=== PATIENT | female | born 1945 | race Caucasian/White ===

== ENCOUNTER 2024-12-05 19:09 | Inpatient (IN) | payer OTHER ==
[2024-12-05 20:19] LABS: Absolute Basophils 0.1 K/uL (0-0.5); Absolute Eosinophils 0.2 K/uL (0-0.5); Absolute Lymphocytes (CBC) 0.7 K/uL (0.7-4.9); Absolute Monocytes 1.3 K/uL (0.1-1.3); Absolute Neutrophil 9.4 K/uL (1.8-8.0); Basophils % 0.7 % (0-1.3); Eosinophils % 1.6 % (0-4.4); Hematocrit 29.2 % (36.0-45.0); Hemoglobin 9.5 g/dL (12.0-15.0); Lymphocytes % 5.8 % (15.3-44.8); MCH 26.8 pg (27.0-35.0); MCHC 32.4 g/dL (32.0-36.0); MCV 82.9 fL (80-100); Neutrophils % 80.9 % (41.7-73.7); Platelets 494 thou/uL (152-406); RBC Red Blood Cell Count 3.53 M/uL (3.86-4.86); Red Cell Distribution Width 16.5 % (12.1-15.2)
[2024-12-05] MEDS ORDERED: VANCOMYCIN 1 GM/VIAL ONE ×2 (20:30→23:56)
[2024-12-05] MEDS ORDERED: PIPERACIL/TAZO 3.375 GM VIAL IV ONE (20:30)
[2024-12-05] MEDS ORDERED: NA CHLORIDE 0.9% 250 ML ONE ×2 (20:30→23:56)
[2024-12-05] MEDS ORDERED: NA CHLORIDE 0.9% 100 ML ONE (20:30)
[2024-12-05 20:32] LABS: Anion Gap 11.4 mEq/L (5.0-15.0); PTT, Activated Partial Thromb 41.1 SECONDS (27.2-37.4); Potassium 4.4 mEq/L (3.5-5.1); Protime INR 2.28
[2024-12-05] MEDS ORDERED: TRAMADOL HCL 50 MG TAB ONE (22:18)
--- NOTE | 2024-12-05 22:45 | RAD REPORT ---
EXAM: CT Shoulder Left W Con HISTORY: shoulder infection COMPARISON: None TECHNIQUE: Multiple contiguous axial images were obtained in a CT of the left shoulder following IV c ontrast administration. Sagittal and coronal reformats were performed. One or more of the following dose reduction techniques were used: Automated exposure control, adjustment of the mA and kV accordin g to patient size, and iterative reconstruction. Unless otherwise specified, incidental findings do not require dedicated imaging follow-up. FINDINGS: Ill-defined collection of fluid with gas locules present along the anterior aspect of the deltoid mus pola, extending along the lateral upper arm compartment muscles, measuring 5.1 x 3.7 x 8.2 cm in greatest transverse, AP, and CC dimensions. Bilobed crescentic collections in the subacromial space, with marginal thin wall enhancement extendin g deep to and posterior to the distal clavicle, and along the fascial plane between the deltoid and infraspinatus. The former component measures 5.3 x 2.0 cm in greatest craniocaudal extent. The subdel toid component measures 5.7 x 1.8 cm. This is favored to represent distention of the subacromial/subdeltoid bursa, rather than a joint effusion. Distention with mild marginal enhancement of the long head of biceps tendon sheath, measuring 1.6 x 1 .2 cm in greatest axial dimension. Advanced glenohumeral joint degenerative changes with joint space narrowing anteriorly. Advanced AC j oint degenerative changes with marginal spurring. Fluid collection measuring 2.9 x 1.8 cm with adjacent fat stranding and internal gas locules emanates from the joint space, extending cranially an d anteriorly. Atrophic changes with fatty replacement of the supraspinatus and infraspinatus. The long head of nehemias ps tendons are not well evaluated, although there appears to be some swelling and soft tissue thickening along the distal subscapularis tendon. The visualized supraclavicular soft tissues are unremarkable. Included left lung and mediastinal stru ctures are unremarkable. No focal suspicious osseous lesion or periosteal reaction. Left chest wall pacer in place. IMPRESSION: Ill-defined collection of fluid and gas within the anterior aspect of the deltoid muscle and extendin g along the lateral upper arm muscles up to 8.2 cm, could represent an abscess. Bilobed crescentic collections in the subacromial and subdeltoid space, with marginal wall enhancemen t, concerning for bursitis, for which superimposed infection cannot be excluded. Distention of the long head of biceps tendon sheath and nonspecific soft tissue thickening near the subscapularis inser tion, could relate to the same etiology. Moderate degenerative changes, with fluid collection extending cranially from the AC joint, with surr ounding fat stranding and few locules of gas. Underlying septic arthritis cannot be excluded as well. Other incidental findings as above.
[2024-12-05] MEDS: Levofloxacin500mg IV 500 MG/100 ML BAG IV ONE (23:00)
[2024-12-05] MEDS: VANCOMYCIN 1.75 GM in NA CHLORIDE 0.9% 500 ML IVPB SCH (23:00)
--- NOTE | 2024-12-05 23:12 | EDPHYS ---
Physician Documentation [facility] Name: Arabella Chou Age: 79 yrs Sex: Female : 1945 Arrival Date: 12/05/2024 Time: 19:09 Bed 15 Private MD: ED Physician Jose Rai HPI: 12/05 19:57 This 79 yrs old Female presents to ER via Wheelchair with complaints of ec2 Abnormal Lab Results - xray/ultrasound. 19:57 Patient arrives today d/t concern for L shoulder redness. was seen outpatient, had ec2 negative dvt us, soft tissue ultrasound with a recommended CT imaging for further evaluation. Patient is been having erythema to the left shoulder, was diagnosed with cellulitis, started on Keflex and subsequently doxycycline with minimal improvement in symptoms. Patient has been on antibiotic for approximately 5 days.. Historical: - Allergies: 19:27 No Known Allergies; me1 - PMHx: 19:27 Congestive heart failure; Hypertensive disorder; Deep vein thrombosis; me1 - PSHx: 19:27 pacemaker; me1 - Immunization history:: Adult Immunizations up to date. - Infectious Disease History:: Denies. - Social history:: Smoking status: Patient/guardian denies using tobacco, but has a distant history of tobacco abuse. ROS: 20:04 Constitutional: as per hpi ec2 Exam: 20:04 Constitutional: GEN: NAD Head: atraumatic Eyes: EOMI Ears: External ears are ec2 normal. CV: regular rate LUNGS: no respiratory distress ABD: non-distended SKIN: Erythema to the left shoulder, trace edema from the shoulder down, intact distal neurovascular status MSK: no evidence of trauma Vital Signs: 19:20 BP 138 / 54; Pulse 86; Resp 17; Temp 98.2; Pulse Ox 98% ; Weight 103.42 kg; Height 5 me1 ft. 6 in. ; Pain 7/10; 20:00 BP 132 / 50; Pulse 65; Resp 18; Temp 98.1; Pulse Ox 97% on R/A; rg5 19:20 Body Mass Index 36.80 (103.42 kg, 167.64 cm) me1 19:20 Pain Scale: Adult me1 MDM: 19:29 Medical Screening Exam initiated ec2 20:05 Data reviewed: vital signs, nurses notes. ED course: Patient arrives today for left ec2 shoulder erythema and ultrasound that was reportedly recommended to have a follow-up CT scan. Examination yields erythema to the left shoulder. Will obtain lab work, CT scan, empirically treat with vancomycin and Zosyn and reassess. 23:15 Differential Diagnosis altered mental status, sepsis, flu, Left lower arm cellulitis, sp4 left upper arm cellulitis, left intramuscular abscess. Consideration of Admission/Observation Patient was admitted/placed on observation. Escalation of care including admission/observation considered. ED course: Left deltoid intramuscular abscess based on the CT findings. There is also elevated INR. Patient was discussed with Dr. Parra with general surgery and he has requested admission with n.p.o. for incision and drainage prep in the morning.. Sepsis reevaluation was complete. 30 mL/kg fluid bolus cannot be given secondary to history of congestive heart failure. . 12/05 19:32 Order name: CBC with Diff; Complete Time: 20:34 [facility] 12/05 19:32 Order name: BMP; Complete Time: 20:34 [facility] 12/05 19:53 Order name: Blood Culture Adult (2) [facility] 12/05 19:53 Order name: Lactate w/ 2H reflex if indic.; Complete Time: 21:19 2 12/05 19:53 Order name: Protime (+inr); Complete Time: 20:34 2 12/05 19:53 Order name: Ptt, Activated; Complete Time: 20:34 2 12/05 23:39 Order name: Basic Metabolic Panel [facility] 12/05 23:39 Order name: Basic Metabolic Panel [facility] 12/05 23:39 Order name: CBC with Automated Diff [facility] 12/05 23:39 Order name: CBC with Automated Diff [facility] 12/05 23:39 Order name: Lipid Profile [facility] 12/05 23:39 Order name: Lipid Profile [facility] 12/05 19:58 Order name: Shoulder Left W Con; Complete Time: 23:13 [facility] 12/05 19:53 Order name: EKG; Complete Time: 19:53 [facility] 12/05 23:39 Order name: CONS Physician Consult [facility] 12/05 19:32 Order name: IV; Complete Time: 20:04 2 12/05 19:53 Order name: Accucheck; Complete Time: 20:50 [facility] 12/05 19:53 Order name: Cardiac monitoring; Complete Time: 20:50 12/05 19:53 Order name: EKG - Nurse/Tech; Complete Time: 21:11 12/05 19:53 Order name: IV Saline Lock - Large Bore; Complete Time: 20:10 12/05 19:53 Order name: Labs collected and sent; Complete Time: 20:10 12/05 19:53 Order name: O2 Per Protocol; Complete Time: 20:10 12/05 19:53 Order name: O2 Sat Monitoring; Complete Time: 20:10 12/05 19:53 Order name: Vital Signs; Complete Time: 20:10 12/05 23:06 Order name: NPO; Complete Time: 23:16 sp4 Administered Medications: 20:50 Drug: Piperacillin-Tazobactam IVPB 3.375 grams IVPB once over 60 mins; (mix in NS 100 rg5 mL) Route: IVPB; Infused Over: 60 mins; Site: right hand; 22:11 Follow up: IV Status: Completed infusion; IV Intake: 100ml rg5 22:11 Drug: vancoMYCIN IVPB 1 grams IVPB once over 2 hrs Route: IVPB; Infused Over: 2 hrs; rg5 Site: right wrist; 23:22 Follow up: IV Status: Completed infusion; IV Intake: 200ml rg5 12/06 01:15 Follow up: IV Status: Completed infusion; IV Intake: 250ml rg5 12/05 22:15 Drug: traMADol PO 100 mg PO once Route: PO; rg5 23:22 Follow up: Response: No adverse reaction; Pain is decreased rg5 12/06 00:07 Drug: vancoMYCIN IVPB 1 grams IVPB once over 2 hrs Route: IVPB; Infused Over: 2 hrs; rg5 Site: right antecubital; 01:16 Follow up: IV Status: Completed infusion; IV Intake: 250ml rg5 Disposition Summary: 12/05/24 23:12 Hospitalization Ordered Notes: Hospitalization Status: Inpatient Admission sp4 Provider: Prince timi Loaiza Location: Telemetry/MedSurg (Inpatient) sp4 Condition: Stable sp4 Problem: new sp4 Symptoms: have improved sp4 Bed/Room Type: Standard sp4 Room Assignment: 425(12/05/24 23:43) kl Diagnosis - Cutaneous abscess of left upper limb sp4 - Left deltoid intramuscular abscess, left arm cellulitis, sepsis. sp4 Forms: - Medication Reconciliation Form sp4 - SBAR form sp4 - Leadership Thank You Letter sp4 Signatures: Dispatcher [employer] Rosey Cantu, RN RN Jose Roberts MD MD sp4 Sidra Trent RN RN me1 Bhaskar Hendrix MD MD ec2 Vincent Mata RN RN rg5 Corrections: (The following items were deleted from the chart) 12/05 19:53 19:53 BLOOD CULTURE*+BA.LAB.BRZ ordered. EDMS EDMS 19:53 19:53 LACTATE+C.LAB.BRZ ordered. EDMS EDMS 19:53 19:53 PROTIME (+INR)+COAG.LAB.BRZ ordered. EDMS EDMS 19:53 19:53 PTT, ACTIVATED+COAG.LAB.BRZ ordered. EDMS EDMS 20:04 19:57 Patient arrives today d/t concern for L shoulder redness. was seen outpatient, ec2 had negative dvt us, soft tissue . ec2 23:43 23:12 sp4
--- NOTE | 2024-12-05 23:12 | ER ---
Nurse's Notes [facility] Name: Arabella Chou Age: 79 yrs Sex: Female : 1945 Arrival Date: 12/05/2024 Time: 19:09 Bed 15 Private MD: Diagnosis: Cutaneous abscess of left upper limb;Left deltoid intramuscular abscess, left arm cellulitis, sepsis. Presentation: 12/05 19:20 Chief complaint: Patient's son or daughter states: sent by Lorrie Manning for failed me1 outpt therapy for cellulitis to left arm. Started PO cephalexin on Wednesday and Doxycycline on Wednesday. left forearm and hand are red and swollen and painful. Pain /10. Coronavirus screen: Vaccine status: Patient reports receiving the 2nd dose of the covid vaccine. Ebola Screen: No symptoms or risks identified at this time. Initial Sepsis Screen: Does the patient meet any 2 criteria? No. Patient's initial sepsis screen is negative. Does the patient have a suspected source of infection? No. Patient's initial sepsis screen is negative. Risk Assessment: Do you want to hurt yourself or someone else? Patient reports no desire to harm self or others. Onset of symptoms was November 30, 2024. 19:20 Method Of Arrival: Wheelchair me1 19:20 Acuity: PADMAJA 3 me1 Historical: - Allergies: 19:27 No Known Allergies; me1 - PMHx: 19:27 Congestive heart failure; Hypertensive disorder; Deep vein thrombosis; me1 - PSHx: 19:27 pacemaker; me1 - Immunization history:: Adult Immunizations up to date. - Infectious Disease History:: Denies. - Social history:: Smoking status: Patient/guardian denies using tobacco, but has a distant history of tobacco abuse. Screenin:00 [facility] ED Fall Risk Assessment (Adult) History of falling in the last 3 months, rg5 including since admission No falls in past 3 months (0 pts) Confusion or Disorientation No (0 pts) Intoxicated or Sedated No (0 pts) Impaired Gait Yes (1 pt) Mobility Assist Device Used Yes (1 pt) Altered Elimination No (0 pt) Score/Fall Risk Level 0 - 2 = Low Risk Oriented to surroundings, Maintained a safe environment, Provided non-skid footwear. Abuse screen: Denies threats or abuse. Nutritional screening: No deficits noted. Tuberculosis screening: No symptoms or risk factors identified. Assessment: 20:00 General: Appears uncomfortable, Behavior is calm, cooperative, appropriate for age. rg5 Pain: Complains of pain in posterior aspect of left shoulder Quality of pain is described as aching. Neuro: Level of Consciousness is awake, alert, obeys commands, Oriented to person, place, time, situation. Cardiovascular: Denies chest pain, Patient's skin is warm and dry. Rhythm is regular. Respiratory: Reports cough that is productive, Airway is patent Trachea midline Respiratory effort is even, unlabored, Respiratory pattern is regular, symmetrical. 20:00 GI: Abdomen is round obese, Bowel sounds present in left lower quadrant Abd is soft and rg5 non tender. : No signs and/or symptoms were reported regarding the genitourinary system. EENT: No deficits noted. Derm: Skin is intact, Skin is dry, Skin is normal, Skin temperature is warm. Musculoskeletal: Circulation, motion, and sensation intact. Range of motion: intact in all extremities, Swelling present in right leg and left leg. Vital Signs: 19:20 BP 138 / 54; Pulse 86; Resp 17; Temp 98.2; Pulse Ox 98% ; Weight 103.42 kg; Height 5 me1 ft. 6 in. ; Pain 7/10; 20:00 BP 132 / 50; Pulse 65; Resp 18; Temp 98.1; Pulse Ox 97% on R/A; rg5 19:20 Body Mass Index 36.80 (103.42 kg, 167.64 cm) me1 19:20 Pain Scale: Adult ia1 ED Course: 19:12 Patient arrived in ED. im 19:27 Triage completed. me1 19:27 Arm band placed on Patient placed in waiting room. me1 19:29 Bhaskar Hendrix MD is Attending Physician. ec2 19:45 Vincent Mata RN is Primary Nurse. rg5 20:00 Patient has correct armband on for positive identification. Client placed on continuous rg5 cardiac and pulse oximetry monitoring. NIBP monitoring applied. operating room aide on. Pulse ox on. Door closed. Noise minimized. Warm blanket given. 20:00 No provider procedures requiring assistance completed. Inserted saline lock: 20 gauge rg5 in right wrist, using aseptic technique. Inserted saline lock: Blood collected. Flushed with 10 mL NS. Patient maintains SpO2 saturation greater than 95% on room air. 20:36 Attending Physician role handed off by Bhaskar Hendrix MD sp4 20:36 Jose Rai MD is Attending Physician. sp4 21:21 Shoulder Left W Con In Process Unspecified. EDMS 23:08 Prince Loaiza MD is Hospitalizing Provider. sp4 12/06 00:38 Provided Education on: needs for admit. rg5 00:38 Patient admitted, IV remains in place. intact, No redness/swelling at site. rg5 Administered Medications: 12/05 20:50 Drug: Piperacillin-Tazobactam IVPB 3.375 grams IVPB once over 60 mins; (mix in NS 100 rg5 mL) Route: IVPB; Infused Over: 60 mins; Site: right hand; 22:11 Follow up: IV Status: Completed infusion; IV Intake: 100ml rg5 22:11 Drug: vancoMYCIN IVPB 1 grams IVPB once over 2 hrs Route: IVPB; Infused Over: 2 hrs; rg5 Site: right wrist; 23:22 Follow up: IV Status: Completed infusion; IV Intake: 200ml rg5 12/06 01:15 Follow up: IV Status: Completed infusion; IV Intake: 250ml rg5 12/05 22:15 Drug: traMADol PO 100 mg PO once Route: PO; rg5 23:22 Follow up: Response: No adverse reaction; Pain is decreased rg5 12/06 00:07 Drug: vancoMYCIN IVPB 1 grams IVPB once over 2 hrs Route: IVPB; Infused Over: 2 hrs; rg5 Site: right antecubital; 01:16 Follow up: IV Status: Completed infusion; IV Intake: 250ml rg5 Medication: 12/05 20:00 VIS not applicable for this client. rg5 Intake: 22:11 IV: 100ml; Total: 100ml. rg5 23:22 IV: 200ml; Total: 300ml. rg5 12/06 01:15 IV: 250ml; Total: 550ml. rg5 01:16 IV: 250ml; Total: 800ml. rg5 Outcome: 12/05 23:12 Decision to Hospitalize by Provider. sp4 12/06 00:38 Admitted to Med/surg accompanied by tech, via stretcher, rg5 Condition: stable Instructed on the need for admit, :16 Patient left the ED. rg5 Signatures: Dispatcher [employer] Jose Pettit MD MD sp4 Cora Julio Michelle, RN RN me1 Bhaskar Hendrix MD MD ec2 Vincent Mata RN RN rg5 Corrections: (The following items were deleted from the chart) 12/05 19:32 19:20 Chief complaint: Patient's son or daughter states: sent by Lorrie Manning for me1 failed outpt therapy for cellulitis to right arm. Started PO cephalexin on Wednesday and Doxycycline on Wednesday. Right forearm and hand are red and swollen and painful. Pain 03/22. me1
--- NOTE | 2024-12-05 23:41 | P.HP ---
Certification for Inpatient Patient admitted to: Inpatient With expected LOS: >2 Midnights Practitioner: I am a practitioner with admitting privileges, knowledge of patient current condition, hospital course, and medical plan of care. Services: Services provided to patient in accordance with Admission requirements found in Title 42 Section 412.3 of the Code of Federal Regulations Patient History Date of Service: 12/05/24 Reason for admission: Left shoulder abscess History of Present Illness: Patient is a 79-year-old female with a past medical history of atrial fibrillation currently on Eliquis. She is admitted for left shoulder pain, swelling and redness. She had a ground-level fall 6 weeks ago and has been experiencing progressively worsening pain on her left shoulder. Patient has been evaluated outpatient for this issue. She underwent ultrasound, which ruled out DVT. Soft tissue ultrasound was obtained. However, CT was recommended for further evaluation. She was diagnosed with cellulitis but failed outpatient therapy with Keflex and doxycycline.she is here for persistent symptoms. Workup in the ER revealed fluid collection concerning for abscess. Patient has an INR of 2.26. Dr. Parra from general surgery has been consulted Allergies No Known Allergies Allergy (Unverified 12/05/24 23:40) Physical Examination - Physical Exam General: Acute distress HEENT: Atraumatic, Normocephalic Cardiovascular: No edema, Normal pulses, Normal S1 S2, No murmurs, Irregular heart rate/rhythm Neurological: Normal speech - Studies Laboratory Data (last 24 hrs) 12/05/24 12/05/24 12/05/24 20:05 20:05 20:05 WBC 11.60 H Hgb 9.5 L Hct 29.2 L Plt Count 494 H PT 25.0 H INR 2.28 APTT 41.1 H Sodium 133 L Potassium 4.4 BUN 41 H Creatinine 1.09 H Glucose 123 H Assessment and Plan - Problems (Diagnosis) (1) Atrial fibrillation Current Visit: Yes Status: Acute (2) Left shoulder pain Current Visit: Yes Status: Acute (3) Abscess of left shoulder Current Visit: Yes Status: Acute - Plan Assessment This is a 79-year-old female who is being admitted for left shoulder cellulitis possibly with abscess as per CAT scan. She is not septic. Cellulitis and abscess of left shoulder Atrial fibrillation on Eliquis Plan: Will admit inpatient with telemetry Empiric antibiotics IV fluid infusion Pain control Consult general surgery Will hold Eliquis in anticipation for possible I&D N.p.o. after midnight Resume rest of home medication upon reconciliation - Advance Directives Does patient have a Living Will: No Does patient have a Durable POA for Healthcare: No
[2024-12-05] MEDS: VANCOMYCIN 1 GM in NA CHLORIDE 0.9% 250 ML IVPB SCH (23:45)
[2024-12-05] MEDS ORDERED: METRONIDAZOLE 500mg IVPB 500 MG/100 ML BAG IV SCH (23:46)
[2024-12-06 01:28] VITALS: BMI 34.5
[2024-12-06] MEDS: NA CHLORIDE 0.9% 1,000 ML IV SCH ×2 (01:59→09:39)
[2024-12-06] MEDS: METRONIDAZOLE 500mg IVPB 500 MG/100 ML BAG IV SCH (01:59)
[2024-12-06] MEDS: Levofloxacin500mg IV 500 MG/100 ML BAG IV ONE ×2 (03:24→03:28)
[2024-12-06] MEDS: FUROSEMIDE 40 MG TABLET PO SCH (05:55)
[2024-12-06 07:00] LABS: Absolute Basophils 0.1 K/uL (0-0.5); Absolute Eosinophils 0.3 K/uL (0-0.5); Absolute Lymphocytes (CBC) 0.6 K/uL (0.7-4.9); Absolute Monocytes 1.1 K/uL (0.1-1.3); Absolute Neutrophil 5.7 K/uL (1.8-8.0); Basophils % 0.8 % (0-1.3); Eosinophils % 3.5 % (0-4.4); Hematocrit 26.7 % (36.0-45.0); Hemoglobin 8.9 g/dL (12.0-15.0); Lymphocytes % 7.4 % (15.3-44.8); MCH 27.9 pg (27.0-35.0); MCHC 33.3 g/dL (32.0-36.0); MCV 83.8 fL (80-100); MPV 6.4 fL (7.6-11.3); Monocytes % 14.5 % (3.3-12.3); Neutrophils % 73.8 % (41.7-73.7); Platelets 461 thou/uL (152-406); RBC Red Blood Cell Count 3.19 M/uL (3.86-4.86); Red Cell Distribution Width 16.7 % (12.1-15.2)
[2024-12-06 07:11] LABS: PT Prothrombin Time 20.9 SECONDS (10-13.0); PTT, Activated Partial Thromb 37.6 SECONDS (27.2-37.4); Protime INR 1.89
[2024-12-06 07:21] LABS: Anion Gap 8.4 mEq/L (5.0-15.0); Potassium 4.4 mEq/L (3.5-5.1)
[2024-12-06] MEDS: LEVOTHYROXINE SOD 0.025 MG TAB PO SCH (08:28)
[2024-12-06] MEDS: ASPIRIN 81 MG CHEWABLE TABLET PO SCH (08:29)
[2024-12-06] MEDS: SILDENAFIL CITRATE 20 MG TABLET PO SCH (08:29)
[2024-12-06] MEDS: SPIRONOLACTONE 25 MG TABLET PO SCH (08:29)
[2024-12-06] MEDS: FENOFIBRATE 160 MG TAB PO SCH (08:29)
[2024-12-06] MEDS: METOPROLOL TAR 25 MG TAB PO SCH (08:29)
--- NOTE | 2024-12-06 09:16 | P.PN ---
Date of Service: 12/06/24 Subjective Complaining of pain to left shoulder Trouble elevating temperature, was low as 95 F while wearing the Mary hugger I&D with Dr. Parra today ROS 10 point ROS as noted above, otherwise negative General: AAOx3, NAD HEENT: mucus membranes moist, nare normal Head/Neck: Normocephalic, atraumatic, neck supple Respiratory: symmetrical chest expansion, no accessory muscles used, lungs clear on auscultation Cardiac: RRR, no murmurs or gallops noted Extremities: Left shoulder with erythema and swelling Abdominal: soft on palpation, NT/ND Skin: warm pink and dry Neurological: clear speech, appropriate Psych: normal mood and affect, Judgement appropriate Vitals Reviewed Problem list Left shoulder pain secondary to abscess likely due to septic arthritis Atrial fibrillation Pacemaker HTN DVT CHF Hypothyroidism Assessment and Plan Left shoulder pain secondary to abscess likely due to septic arthritis -empiric antibiotics -Dr. Parra will take to surgery for I and D -Dr. Ayala consulted -pain control -follow surgical cultures -Follow blood cultures Atrial fibrillation Pacemaker -continuous telemetry -continue home medications HTN DVT CHF Hypothyroidism -continue home medications as appropriate -hold Eliquis for surgery DVT ppx Eliquis on hold Full code LOS 2-3 days Time Spent Managing Pts Care (In Minutes): 35
[2024-12-06] MEDS: CEFEPIME 2 GM in NA CHLORIDE 0.9% 100 ML IV SCH (09:34)
--- NOTE | 2024-12-06 12:25 | RAD REPORT ---
EXAMINATION: ONE VIEW CHEST XR CLINICAL INDICATION: SOB TECHNIQUE: Frontal chest projection is submitted. Examination is limited by patient positioning and t echnique. COMPARISON: No prior exam. FINDINGS: Mild interstitial pulmonary edema likely present. The heart is moderately enlarged. No displaced frac tures identified. Single-lead pacer device present. IMPRESSION: Mild CHF is possible.
[2024-12-06] MEDS: CLINDAMYCIN 600MG/D5W 50 ML IV SCH (13:35)
[2024-12-06] MEDS ORDERED: ONDANSETRON 4 MG/2 ML VIAL ONE (14:15)
[2024-12-06] MEDS ORDERED: FENTANYL CITR 100 MCG/2 ML ONE (14:15)
[2024-12-06] MEDS ORDERED: dexAMETHasone 10 MG/ML VIAL ONE (14:15)
[2024-12-06] MEDS ORDERED: propofoL 200 MG/20 ML VIAL IV ONE (14:15)
[2024-12-06] MEDS ORDERED: LIDOCAINE 2% MPF 5 ML VIAL ONE (14:15)
[2024-12-06] MEDS ORDERED: KETOROLAC 30 MG/ML INJ ONE (14:15)
[2024-12-06] MEDS ORDERED: MIDAZOLAM HCL 2 MG/2 ML INJ ONE (14:15)
--- NOTE | 2024-12-06 14:35 | CON ---
History Of Present Illness: This is an 79-year-old female with significant past medical history of a trial fibrillation, on Eliquis, coming in with left shoulder discomfort, swelling, and redness. The patient had a CT scan done, which showed 8.2 cm possible abscess to the left shoulder area. Surgical team has also seen the patient. The patient is currently being treated with cefepime and vancomycin . The patient denies any other problems at this time. Past Medical History: As per HPI. Social History: Nonsmoker, nondrinker. Family History: Noncontributory. Medications: Cefepime and vancomycin. See MARs for other medications. Allergies: NO KNOWN DRUG ALLERGIES. Review of Systems: A 10-point review was performed. Physical Examination: General: This is an 79-year-old female, lying in bed, family by the bedside, not in any acute cardio pulmonary distress. Vital Signs: Temperature 97.5, pulse 76, respirations 18, blood pressure 135/70. HEENT: Unremarkable. Neck: Supple. Lungs: Basal crackles. Heart: S1, S2. Regular. Abdomen: Soft, nontender. Bowel sounds present. Extremities: Left upper extremity 3+ edema. Laboratory Data: Shows WBC 7.8, down from 11.6; hemoglobin 8.9; platelets 461. Chemistry shows BUN of 25, creatinine 0.9. Micro data; blood cultures are pending. CT of the left shoulder shows patien t has ill-defined collection of fluid and gas within the anterior aspect of the deltoid muscle and ex tending along the lateral upper arm muscle up to 8.2 cm, representing possible abscess. Assessment And Plan: 1. Gas and abscess formation on the left upper shoulder region. We will recommend to add clindamycin on top of vancomycin and cefepime. I agree with surgical debridement of the area. 2. Leukocytosis, improving. 3. Anemia of chronic disease. 4. Thrombocytosis. 5. Pending cultures, we will continue empiric treatment. We will follow the patient closely and conchita tor signs of infection with WBC and fever trends. NF/MODL Voice ID: [id number] Report ID: [id number]
[2024-12-06] MEDS: BUPIVACAINE 0.5% PF 10 ML VIAL ONE (15:27)
--- NOTE | 2024-12-06 15:32 | P.BOP ---
Preoperative diagnosis: Left shoulder complex abscess Postoperative diagnosis: same Primary procedure: I &D Left shoulder complex abscess 25 x 7 x 2cm Estimated blood loss: <20cc Specimen: pus culture Findings: large cavity two incisions made Medial supracavicular and Lateral arm Anesthesia: General Complications: None Drain(s): Other (1" iodoform whole bottle) Transferred to: Recovery Room Condition: Good
[2024-12-06] MEDS: VANCOMYCIN 1.75 GM in NA CHLORIDE 0.9% 500 ML IVPB SCH (16:44)
[2024-12-06] MEDS: DOCUSATE NA 100 MG CAP PO SCH (20:51)
[2024-12-06] MEDS: POLYETHYL GLY 3350 17 GM/DOSE PO PRN (20:51)
[2024-12-06] MEDS ORDERED: Levofloxacin 250mg IV 250 MG/50 ML BAG IV SCH (21:00)
[2024-12-06] MEDS: HYDROMORPHONE HCL 1 MG/ML INJ IV ONE (22:06)
--- NOTE | 2024-12-06 23:39 | CON ---
Date of Consultation: 12/06/2024 Reason For Consultation: Left shoulder pain and swelling. History Of Present Illness: Arabella is an 79-year-old female who was admitted for left upper extremi ty swelling, pain, and erythema. The patient has history of a fall approximately 6 weeks ago onto he r left side with subsequent pain and progressive swelling. She has had an ultrasound, which was nega tive for any DVT. The patient was diagnosed with cellulitis on an outpatient basis and is being denis clive with Keflex and doxycycline with minimal improvement of her symptoms. First, the patient was see n in the emergency room and had a CT scan that demonstrated a possible fluid collection in her left a rm. General Surgery has been consulted and is planning I and D of the left shoulder later today. Th e patient denies any fevers at this time, but reports some increased swelling in her left upper extre mity. She denies history of gout. Denies any other musculoskeletal complaints at this time. Review of Systems: As above, otherwise negative. Past Medical History: Includes CHF, hypertension, and history of DVT. Past Surgical History: Includes pacemaker placement. Allergies: NO KNOWN DRUG ALLERGIES. Physical Examination: General: No apparent distress. HEENT: Normocephalic, atraumatic. Neck: Supple. Cardiovascular: Brisk cap refill to all digits. Chest: Nonlabored breathing. Abdomen: Nondistended. Psychiatric: Responds to exam. Neurologic: Right upper extremity functional range of motion without pain. No gross deformities. N o obvious dislocations. Bilateral lower extremity functional range of motion without pain. No gross deformities. No obvious dislocations. Left upper extremity, some mild swelling over the superior a spect of the left shoulder as well as mild swelling of the left arm and bruising of the antecubital f winnie, left forearm. Some induration noted to the left forearm, and global swelling of the left hand and wrist. No erythema of the left hand and wrist. Sensation grossly intact in the median, ulnar, a nd radial nerve distributions. Neurovascularly intact distally. No pain with range of motion of the left elbow. Mild pain with range of motion of left shoulder. Diagnostic Studies: CT scan of the left upper extremity was evaluated. It does demonstrate a fluid collection over the lateral left arm. No obvious signs of any intra-articular involvement. Assessment And Plan: Ms. Chou is an 79-year-old female with left upper extremity cellulitis and abscess. There does not appear to be any bone or joint involvement noted on the CAT scan. General S urgery plans to take the patient back for incision and drainage today. The patient may continue with current treatment plan and antibiotic recommendations per the infectious disease team. If the patie nt failed to progress after local incision and drainage or symptoms worsen, we will determine whether the patient needs any other surgical intervention at that time. SEKOU/MODL Voice ID: [id number] Report ID: [id number]
[2024-12-07] MEDS: MELATONIN 3 MG TABLET PO PRN (02:07)
[2024-12-07] MEDS: TRAMADOL HCL 50 MG TAB PO PRN (02:29)
[2024-12-07 07:20] LABS: Absolute Lymphocytes (CBC) 0.4 K/uL (0.7-4.9); Absolute Monocytes 0.5 K/uL (0.1-1.3); Absolute Neutrophil 7.8 K/uL (1.8-8.0); Basophils % 0.1 % (0-1.3); Hematocrit 28.6 % (36.0-45.0); Hemoglobin 9.4 g/dL (12.0-15.0); Lymphocytes % 4.6 % (15.3-44.8); MCH 27.4 pg (27.0-35.0); MCHC 32.8 g/dL (32.0-36.0); MCV 83.7 fL (80-100); MPV 6.7 fL (7.6-11.3); Monocytes % 5.6 % (3.3-12.3); Neutrophils % 89.7 % (41.7-73.7); Platelets 468 thou/uL (152-406); RBC Red Blood Cell Count 3.42 M/uL (3.86-4.86); Red Cell Distribution Width 16.7 % (12.1-15.2)
[2024-12-07 07:44] LABS: Anion Gap 10.9 mEq/L (5.0-15.0); Magnesium 2.1 mg/dL (1.6-2.4); Phosphorus 3.5 mg/dL (2.5-4.9); Potassium 3.9 mEq/L (3.5-5.1)
--- NOTE | 2024-12-07 08:40 | EKG ---
Test Date: 2024-12-05 Test Time: 20:56:41 Rigging Supervisor: PASCUAL MEASUREMENT RESULTS: Intervals: Rate: 90 TX: QRSD: 74 QT: 376 QTc: 459 [place]: P: TX: QRS: 22 T: 9 INTERPRETIVE STATEMENTS: Atrial fibrillation with a competing junctional pacemaker Nonspecific T wave abnormality Abnormal ECG No previous ECG available for comparison Electronically Signed On 12-07-24 08:36:38 CDT by Naeem Pelayo
[2024-12-07] MEDS ORDERED: VANCOMYCIN 1.75 GM in NA CHLORIDE 0.9% 500 ML IVPB SCH (12:00)
--- NOTE | 2024-12-07 14:36 | P.PN ---
Subjective Date of Service: 12/07/24 Chief Complaint: Left shoulder abscess Subjective: No new changes, C/O voiced (Continues to have pain to the shoulder) Review of Systems 10-point ROS is otherwise unremarkable General: Weakness Musculoskeletal: Shoulder Pain Physical Examination - Vital Signs Temperature: 97.6 F Blood Pressure: 124/53 Pulse: 70 Respirations: 20 Pulse Ox (%): 97 - Physical Exam General: Alert, In no apparent distress, Oriented x3 HEENT: Atraumatic, PERRLA, EOMI Neck: Supple, JVD not distended Respiratory: Normal air movement, Diminished Cardiovascular: Regular rate/rhythm, Normal S1 S2 Capillary refill: <2 Seconds Gastrointestinal: Normal bowel sounds, No tenderness Musculoskeletal: No warmth, Tenderness Integumentary: No rashes, Other (surgical incisions/abscess with packing to the shoulder ) Neurological: Normal speech, Normal tone, Normal affect Lymphatics: No axilla or inguinal lymphadenopathy External genitalia: Deferred Rectal: Deferred - Studies Microbiology Data (last 24 hrs): 12/05/24 20:25 Blood - Blood Blood Culture Gram Stain - Final 12/05/24 20:25 Blood - Blood Gram Stain - Final 12/05/24 20:10 Blood - Blood Blood Culture Gram Stain - Final 12/05/24 20:10 Blood - Blood Gram Stain - Final Assessment And Plan - Plan Left shoulder pain secondary to abscess likely due to septic arthritis - 12/06: Completed I&D with Dr. Parra - 12/07: Discussed with Dr. Parra for recs to Continue Abx Cefepime/Clindamycin/Vanco, for now - Infectious Disease consulted; appreciate recs - Dr. Ayala with ortho consulted, follow up for recs - Continue pain control with Tramadol q6h PRN - Follow surgical and blood cultures Atrial fibrillation Pacemaker History of DVT -Continuous to monitor on telemetry -Continue home medications Eliquis Congestive Heart Failure Hypertension - Continue home meds Fenofibrate, metoprolol and sildenafil Hypothyroidism - Continue home Levothyroxine DVT Ppx: Home Eliquis GI Ppx: Protonix for now Code Status: Full Code Discharge Plan: Home Plan to discharge in: 48 Hours - Code Status/Comfort Care Code Status Assessed: Yes (FULL CODE )
--- NOTE | 2024-12-07 15:28 | P.PN ---
Subjective Date of Service: 12/07/24 Chief Complaint: Left shoulder abscess Subjective: Tolerating diet, Ambulating, Improving Review of Systems Respiratory: Unremarkable Gastrointestinal: Unremarkable Integumentary: As per HPI Physical Examination - Vital Signs Temperature: 97.6 F Blood Pressure: 124/53 Pulse: 70 Respirations: 20 Pulse Ox (%): 97 - Physical Exam General: Alert, In no apparent distress, Oriented x3, Cooperative HEENT: Normocephalic, PERRLA Neck: Supple Respiratory: Normal air movement Gastrointestinal: Soft and benign Musculoskeletal: No warmth, Erythema (improving), Warmth (improving) Integumentary: No cyanosis Neurological: Normal speech - Studies Microbiology Data (last 24 hrs): 12/05/24 20:25 Blood - Blood Blood Culture Gram Stain - Final 12/05/24 20:25 Blood - Blood Gram Stain - Final 12/05/24 20:10 Blood - Blood Blood Culture Gram Stain - Final 12/05/24 20:10 Blood - Blood Gram Stain - Final Assessment And Plan - Plan cont abx oob f/u culture
[2024-12-07] MEDS: ACETAMINOPHEN 500 MG TAB PO PRN (17:13)
--- NOTE | 2024-12-07 19:41 | PN ---
Subjective: The patient is lying in bed. She has had surgical debridement done by surgeon today. Denies any other problems. Objective: Vital Signs: Temperature 96, pulse 70, respirations 16, blood pressure 124/53. Lungs: Basal crackles. Heart: S1, S2. Regular. Abdomen: Soft, nontender. Bowel sounds present. Extremities: Trace edema on the left upper extremity. Laboratory Data: Shows WBC 8.7, hemoglobin 9.4, platelets 468. BUN 32, creatinine 0.8. Assessment And Plan: 1. Left shoulder abscess, status post debridement, doing well. Continue current antibiotic including vancomycin, cefepime, and clindamycin. Cultures are pending. Blood cultures are negative to date. 2. Anemia of chronic disease. 3. Monitor signs of infection with WBC and fever trends. NF/MODL Voice ID: [id number] Report ID: [id number]
[2024-12-07] MEDS: APIXABAN 5 MG TABLET PO SCH (21:06)
[2024-12-08] MEDS ORDERED: VANCOMYCIN 1.75 GM in NA CHLORIDE 0.9% 500 ML IVPB SCH (04:00)
[2024-12-08] MEDS: PANTOPRAZOLE 40MG TABLET PO SCH (08:50)
[2024-12-08] MEDS: METOPROLOL TAR 25 MG TAB PO SCH (08:59)
[2024-12-08 10:20] LABS: Absolute Eosinophils 0.3 K/uL (0-0.5); Absolute Monocytes 1.3 K/uL (0.1-1.3); Absolute Neutrophil 7.8 K/uL (1.8-8.0); Basophils % 0.4 % (0-1.3); Eosinophils % 2.7 % (0-4.4); Hematocrit 28.3 % (36.0-45.0); Hemoglobin 9.3 g/dL (12.0-15.0); Lymphocytes % 9.3 % (15.3-44.8); MCH 27.6 pg (27.0-35.0); MCHC 32.9 g/dL (32.0-36.0); MCV 83.8 fL (80-100); MPV 6.9 fL (7.6-11.3); Monocytes % 12.9 % (3.3-12.3); Neutrophils % 74.7 % (41.7-73.7); Platelets 576 thou/uL (152-406); RBC Red Blood Cell Count 3.38 M/uL (3.86-4.86); Red Cell Distribution Width 17.2 % (12.1-15.2)
[2024-12-08 10:33] LABS: Anion Gap 12.1 mEq/L (5.0-15.0); Phosphorus 2.6 mg/dL (2.5-4.9); Potassium 4.1 mEq/L (3.5-5.1)
--- NOTE | 2024-12-08 10:52 | P.PN ---
Subjective Date of Service: 12/08/24 Chief Complaint: s/p I&D left shoulder Patient reports left arm feeling better Physical Examination - Vital Signs Temperature: 97.4 F Blood Pressure: 142/82 Pulse: 72 Respirations: 18 Pulse Ox (%): 96 - Physical Exam Musculoskeletal: Other (Left upper extremity: Dressings in place with some serous sanguinous drainage noted; diminished swelling in hand, wrist and forearm; neurovascular intact distally) - Studies Microbiology Data (last 24 hrs): 12/05/24 20:25 Blood - Blood Blood Culture Gram Stain - Final 12/05/24 20:25 Blood - Blood Gram Stain - Final 12/05/24 20:10 Blood - Blood Blood Culture Gram Stain - Final 12/05/24 20:10 Blood - Blood Gram Stain - Final Assessment And Plan - Plan Arabella is a an 79-year-old female status post I&D of the left upper extremity abscess Patient reports improvement of her symptoms with the left arm at this time No orthopedic intervention indicated at this time Continue with treatment per general surgery and infectious disease will sign off at this time; please call with any questions/concerns
[2024-12-08] MEDS: ONDANSETRON 4 MG/2 ML VIAL IV PRN (11:02)
[2024-12-08] MEDS: ACETAMINOPHEN 500 MG TAB PO PRN (15:12)
[2024-12-08] MEDS: VANCOMYCIN 1.75 GM in NA CHLORIDE 0.9% 500 ML IVPB SCH (15:30)
--- NOTE | 2024-12-08 15:49 | P.PN ---
Subjective Date of Service: 12/08/24 Chief Complaint: s/p I&D left shoulder Subjective: No chest pain or shortness of breath. No nausea or vomiting. No abdominal pain. No obvious bleeding. Looks comfortable in the bed. left shoulder pain controlled. Objective: General appearance: Alert and comfortable CVS: Normal S1 and S2 Lungs: Clear to auscultation bilaterally Abdomen: Soft, bowel sounds present, no tenderness Extremities: No lower extremity edema Left shoulder: dressing present. Physical Examination - Vital Signs Temperature: 97.5 F Blood Pressure: 156/77 Pulse: 78 Respirations: 16 Pulse Ox (%): 97 - Studies Microbiology Data (last 24 hrs): 12/05/24 20:10 Blood - Blood Aerobic Blood Culture - Final Enterococcus Faecalis 12/05/24 20:10 Blood - Blood Blood Culture Gram Stain - Final 12/05/24 20:10 Blood - Blood Anaerobic Blood Culture - Final Enterococcus Faecalis 12/05/24 20:10 Blood - Blood Gram Stain - Final 12/05/24 20:25 Blood - Blood Aerobic Blood Culture - Final Enterococcus Faecalis 12/05/24 20:25 Blood - Blood Blood Culture Gram Stain - Final 12/05/24 20:25 Blood - Blood Anaerobic Blood Culture - Final Enterococcus Faecalis 12/05/24 20:25 Blood - Blood Gram Stain - Final Assessment And Plan - Plan Left shoulder abscess - 12/06: Completed I&D with Dr. Parra - cont Cefepime/Clindamycin/Vanco, for now - Infectious Disease consulted; appreciate recs - Dr. Ayala with ortho consulted, no ortho intervention, signed off - Continue pain control with - Follow surgical and blood cultures Atrial fibrillation Pacemaker History of DVT -Continuous to monitor on telemetry -Continue home medications Eliquis Congestive Heart Failure Hypertension - Continue home meds Fenofibrate, metoprolol and sildenafil Hypothyroidism - Continue home Levothyroxine - Mild drop in temp this AM, better with gill hallman, TSH and cortisol normal, monitor for now. ROSA hallman Plan discussed with the patient and RN
--- NOTE | 2024-12-08 20:16 | PN ---
Date of Progress Note: 12/08/2024 Subjective: She is status post shoulder abscess. The patient is doing well today. We did the dress ing changes. She tolerated it well, and we repacked the area. Objective: Chest: Clear. Abdomen: Soft and depressible. Left arm: No more pus seen. The cellulitis is improved. No bleeding. Laboratory Data: The cultures, at least blood show Enterococcus faecalis, on the shoulder is still p ending. Plan: Continue antibiotics. Follow with ID recommendations. Iodoform packing to the area daily. ESTUARDO/MODL Voice ID: [id number] Report ID: [id number]
--- NOTE | 2024-12-08 21:06 | RAD REPORT ---
EXAM: Chest Single View HISTORY: 79 years Female cough COMPARISON: 12/06/2024 FINDINGS: LUNGS/PLEURA: Increased prominence of the central pulmonary vascular. Possible small left pleural eff usion. CARDIAC/MEDIASTINUM: Moderate cardiomegaly. UPPER ABDOMEN: No significant abnormality. BONES: No acute abnormality. LINES/TUBES/OTHER: Pacemaker present. IMPRESSION: Pulmonary edema/congestive heart failure mildly worsened compared with 12/06/2024.
--- NOTE | 2024-12-08 22:10 | P.PN ---
Date of Service: 12/08/24 Subjective: The patient is lying in bed. Report normal pain on surgical incision on left shoulder absess. Pt is seen currently getting blood transfusion. Denies any other problems. Objective: Temp Pulse Resp BP Pulse Ox 97.5 F 83 113 H 176/75 H 97 12/08/24 16:00 12/08/24 17:41 12/08/24 16:00 12/08/24 17:41 12/08/24 16:00 PE Neuro: ao x 3 Lungs:CTA Heart: S1, S2. Regular. Abdomen: Soft, nontender. Bowel sounds present. Skin: left upper extremity wound debridement seen MSK: left shoulder weaker than right shoulder Blood Culture 12/05/24 :Enterococcus faecalis Wound left shoulder culture: 12/06/24 no growth Labwork Hematology: WBC10.4, Hgb: 9.3, platelet 576 Chemistry: BUN 31, Creatinine: 1.03 current abx: cefepime, clindamycin, vancomycin Assessment/Plan 1. Left shoulder abscess, status post debridement (improving) Continue current antibiotic including vancomycin, cefepime, and clindamycin. Monitor signs of infection with WBC and fever trends. idoform packing to wound area daily 2. Anemia of chronic disease. defer to primary Case discussed with DR. Tovar during round in agreement
[2024-12-08 22:14] LABS: Absolute Eosinophils 0.3 K/uL (0-0.5); Basophils % 0.4 % (0-1.3); Eosinophils % 2.7 % (0-4.4); Hematocrit 28.8 % (36.0-45.0); Hemoglobin 9.2 g/dL (12.0-15.0); Lymphocytes % 11.1 % (15.3-44.8); MCH 27.1 pg (27.0-35.0); MCHC 31.9 g/dL (32.0-36.0); MPV 6.6 fL (7.6-11.3); Monocytes % 11.1 % (3.3-12.3); Neutrophils % 74.7 % (41.7-73.7); Nucleated Red Blood Cells % 0.2 % (0-0); Platelets 543 thou/uL (152-406); RBC Red Blood Cell Count 3.39 M/uL (3.86-4.86); Red Cell Distribution Width 17.2 % (12.1-15.2)
[2024-12-08 22:23] LABS: Anion Gap 9.2 mEq/L (5.0-15.0); Potassium 4.2 mEq/L (3.5-5.1)
[2024-12-08] MEDS: FUROSEMIDE 40 MG/4 ML VIAL IV ONE (22:39)
[2024-12-08] MEDS: ZOLPIDEM TARTRATE 10 MG TABLET PO ONE (22:51)
[2024-12-08] MEDS: TRAZODONE 50 MG TABLET PO ONE (23:27)
[2024-12-09] MEDS: LEVOTHYROXINE SOD 0.025 MG TAB PO SCH (05:34)
[2024-12-09 06:52] LABS: Absolute Basophils 0.1 K/uL (0-0.5); Absolute Eosinophils 0.2 K/uL (0-0.5); Absolute Lymphocytes (CBC) 0.7 K/uL (0.7-4.9); Absolute Monocytes 1.1 K/uL (0.1-1.3); Absolute Neutrophil 6.9 K/uL (1.8-8.0); Basophils % 0.7 % (0-1.3); Eosinophils % 2.2 % (0-4.4); Hematocrit 29.5 % (36.0-45.0); Hemoglobin 9.7 g/dL (12.0-15.0); Lymphocytes % 8.2 % (15.3-44.8); MCH 27.6 pg (27.0-35.0); MCHC 32.8 g/dL (32.0-36.0); MPV 6.6 fL (7.6-11.3); Monocytes % 12.7 % (3.3-12.3); Neutrophils % 76.2 % (41.7-73.7); Platelets 581 thou/uL (152-406); RBC Red Blood Cell Count 3.51 M/uL (3.86-4.86); Red Cell Distribution Width 17.3 % (12.1-15.2)
[2024-12-09 06:54] LABS: Anion Gap 7.6 mEq/L (5.0-15.0); Magnesium 1.9 mg/dL (1.6-2.4); Phosphorus 2.3 mg/dL (2.5-4.9); Potassium 3.6 mEq/L (3.5-5.1)
[2024-12-09 08:48] LABS: Blood Morphology Comment NOT SEEN (NOT SEEN); Platelet Estimate INCR; Platelets Clumped NOTED; White Blood Cell Scan OK (OK)
[2024-12-09] MEDS: FUROSEMIDE 40 MG TABLET PO SCH (09:15)
[2024-12-09] MEDS: SPIRONOLACTONE 25 MG TABLET PO SCH (09:16)
[2024-12-09] MEDS: POTASS/SODIUM PHOSPHATE 1 PKT POWD.PACK PO ONE (09:16)
--- NOTE | 2024-12-09 11:38 | P.PN ---
Subjective Date of Service: 12/09/24 Chief Complaint: s/p I&D left shoulder Subjective: Tolerating diet, Improving Review of Systems Respiratory: Unremarkable Gastrointestinal: Unremarkable Integumentary: As per HPI Physical Examination - Vital Signs Temperature: 97.7 F Blood Pressure: 169/91 Pulse: 71 Respirations: 12 Pulse Ox (%): 96 - Physical Exam General: Alert, In no apparent distress, Oriented x3, Cooperative HEENT: PERRLA, EOMI Neck: Supple Gastrointestinal: Soft and benign Musculoskeletal: No erythema, No warmth Integumentary: No erythema, No cyanosis Neurological: Normal speech - Studies Microbiology Data (last 24 hrs): 12/05/24 20:10 Blood - Blood Aerobic Blood Culture - Final Enterococcus Faecalis 12/05/24 20:10 Blood - Blood Blood Culture Gram Stain - Final 12/05/24 20:10 Blood - Blood Anaerobic Blood Culture - Final Enterococcus Faecalis 12/05/24 20:10 Blood - Blood Gram Stain - Final 12/05/24 20:25 Blood - Blood Aerobic Blood Culture - Final Enterococcus Faecalis 12/05/24 20:25 Blood - Blood Blood Culture Gram Stain - Final 12/05/24 20:25 Blood - Blood Anaerobic Blood Culture - Final Enterococcus Faecalis 12/05/24 20:25 Blood - Blood Gram Stain - Final Assessment And Plan - Plan cont abx oob f/u culturw packing
--- NOTE | 2024-12-09 13:41 | P.PN ---
Subjective Date of Service: 12/09/24 Chief Complaint: s/p I&D left shoulder Subjective: No chest pain or shortness of breath. No nausea or vomiting. No abdominal pain. No obvious bleeding. Looks comfortable in the bed. left shoulder pain controlled. Objective: General appearance: Alert and comfortable CVS: Normal S1 and S2 Lungs: Clear to auscultation bilaterally Abdomen: Soft, bowel sounds present, no tenderness Extremities: No lower extremity edema Left shoulder: dressing present. Physical Examination - Vital Signs Temperature: 97.5 F Blood Pressure: 167/62 Pulse: 86 Respirations: 18 Pulse Ox (%): 96 - Studies Microbiology Data (last 24 hrs): 12/05/24 20:10 Blood - Blood Aerobic Blood Culture - Final Enterococcus Faecalis 12/05/24 20:10 Blood - Blood Blood Culture Gram Stain - Final 12/05/24 20:10 Blood - Blood Anaerobic Blood Culture - Final Enterococcus Faecalis 12/05/24 20:10 Blood - Blood Gram Stain - Final 12/05/24 20:25 Blood - Blood Aerobic Blood Culture - Final Enterococcus Faecalis 12/05/24 20:25 Blood - Blood Blood Culture Gram Stain - Final 12/05/24 20:25 Blood - Blood Anaerobic Blood Culture - Final Enterococcus Faecalis 12/05/24 20:25 Blood - Blood Gram Stain - Final Assessment And Plan - Plan Left shoulder abscess - 12/06: Completed I&D with Dr. Parra - DC Cefepime/Clindamycin/Vanco for now -Blood culture positive for Enterococcus faecalis, start IV Unasyn. Discussed with Dr. Tovar, he agrees with the plan. - Infectious Disease consulted; appreciate recs - Dr. Ayala with ortho consulted, no ortho intervention, signed off - Continue pain control with - Follow surgical and blood cultures # Enterococcus faecalis bacteremia: IV Unasyn for now, repeat blood cultures, echo ordered. Atrial fibrillation Pacemaker History of DVT -Continuous to monitor on telemetry -Continue home medications Eliquis Congestive Heart Failure Hypertension - Continue home meds Fenofibrate, metoprolol and sildenafil Hypothyroidism - Continue home Levothyroxine - Mild drop in temp, better with gill hugger, TSH and cortisol normal, monitor for now. off gill hugger Plan discussed with the patient and RN. Discussed with family, all questions answered.
[2024-12-09] MEDS: AMPICILLIN/SULBACT 3 GM in NA CHLORIDE 0.9% 100 ML IVPB SCH (16:41)
[2024-12-10 05:53] LABS: Absolute Basophils 0.1 K/uL (0-0.5); Absolute Eosinophils 0.3 K/uL (0-0.5); Absolute Lymphocytes (CBC) 1.3 K/uL (0.7-4.9); Basophils % 0.5 % (0-1.3); Eosinophils % 2.4 % (0-4.4); Hematocrit 28.2 % (36.0-45.0); Hemoglobin 9.3 g/dL (12.0-15.0); Lymphocytes % 12.2 % (15.3-44.8); MCH 27.8 pg (27.0-35.0); MCV 84.2 fL (80-100); MPV 6.6 fL (7.6-11.3); Monocytes % 9.7 % (3.3-12.3); Neutrophils % 75.2 % (41.7-73.7); Platelets 535 thou/uL (152-406); RBC Red Blood Cell Count 3.34 M/uL (3.86-4.86); Red Cell Distribution Width 17.1 % (12.1-15.2)
[2024-12-10 06:12] LABS: Anion Gap 8.5 mEq/L (5.0-15.0); Magnesium 1.9 mg/dL (1.6-2.4); Phosphorus 2.4 mg/dL (2.5-4.9); Potassium 3.5 mEq/L (3.5-5.1)
[2024-12-10] MEDS: POTASS/SODIUM PHOSPHATE 1 PKT POWD.PACK PO ONE (08:57)
[2024-12-10] MEDS: METOPROLOL TAR 50 MG TAB PO SCH (08:57)
[2024-12-10 09:02] LABS: Band Neutrophils 3 % (0-1); Differential Total Cells Count 100; Eosinophils 1 % (0-3); Lymphocytes 11 % (15-42); Metamyelocytes 1 % (0-0); Monocytes 8 % (0-10); Myelocytes 1 % (0-0); Segmented Neutrophils 75 % (40-80)
[2024-12-10 09:03] LABS: Blood Morphology Comment NOT SEEN (NOT SEEN); Platelet Estimate INCR
[2024-12-10] MEDS ORDERED: VANCOMYCIN 1.75 GM in NA CHLORIDE 0.9% 500 ML IVPB SCH (10:00)
[2024-12-10] MEDS: VANCOMYCIN 1.75 GM in NA CHLORIDE 0.9% 500 ML IVPB SCH (10:38)
--- NOTE | 2024-12-10 12:44 | P.PN ---
Subjective Date of Service: 12/10/24 Chief Complaint: s/p I&D left shoulder Subjective: No chest pain or shortness of breath. No nausea or vomiting. No abdominal pain. No obvious bleeding. Looks comfortable in the bed. left shoulder pain controlled. Objective: General appearance: Alert and comfortable CVS: Normal S1 and S2 Lungs: Clear to auscultation bilaterally Abdomen: Soft, bowel sounds present, no tenderness Extremities: No lower extremity edema Left shoulder: dressing present. Physical Examination - Vital Signs Temperature: 96.7 F Blood Pressure: 142/68 Pulse: 72 Respirations: 18 Pulse Ox (%): 100 Assessment And Plan - Plan 79-year-old patient admitted with left shoulder abscess, she has I&D, surgery is following, orthopedics signed off, initially she was on broad-spectrum antibiotics, blood culture came back as Enterococcus, all antibiotics stopped, started on IV Unasyn yesterday, today intraoperative cultures came back positive for staph epi, I restart IV vancomycin, ID team to decide on final antibiotic plan tomorrow. Repeat blood cultures and echo pending. Left shoulder abscess - 12/06: Completed I&D with Dr. Parra - DC'd Cefepime/Clindamycin/Vanco on 12/09 -Blood culture positive for Enterococcus faecalis, started on IV Unasyn 12/09. Discussed with Dr. Tovar on 12/09, he agrees with the plan. - Infectious Disease consulted; appreciate recs - Dr. Ayala with ortho consulted, no ortho intervention, signed off - Continue pain control with - surgical cultures growing staph epi, started on IV vancomycin today, ID to decide on final antibiotic plan tomorrow. # Enterococcus faecalis bacteremia: IV Unasyn for now, repeat blood cultures, echo ordered. Atrial fibrillation Pacemaker History of DVT -Continuous to monitor on telemetry -Continue home medications Eliquis Congestive Heart Failure Hypertension - Continue home meds Fenofibrate, metoprolol and sildenafil, adjusted BP meds Hypothyroidism - Continue home Levothyroxine - Mild drop in temp, better with gill hugger, TSH and cortisol normal, monitor for now. off gill hugger -Hypophosphatemia: Replaced, monitor closely. Plan discussed with the patient and RN, all questions answered.
[2024-12-10] MEDS: HYDROCODONE/APAP 5/325 MG TAB PO PRN (13:39)
[2024-12-11 06:27] LABS: Absolute Basophils 0.1 K/uL (0-0.5); Absolute Eosinophils 0.2 K/uL (0-0.5); Absolute Lymphocytes (CBC) 1.2 K/uL (0.7-4.9); Absolute Monocytes 1.2 K/uL (0.1-1.3); Basophils % 0.5 % (0-1.3); Eosinophils % 1.5 % (0-4.4); Hematocrit 25.7 % (36.0-45.0); Hemoglobin 8.4 g/dL (12.0-15.0); Lymphocytes % 9.4 % (15.3-44.8); MCH 27.2 pg (27.0-35.0); MCHC 32.5 g/dL (32.0-36.0); MCV 83.8 fL (80-100); MPV 6.9 fL (7.6-11.3); Monocytes % 9.4 % (3.3-12.3); Neutrophils % 79.2 % (41.7-73.7); Nucleated Red Blood Cells % 0.1 % (0-0); Platelets 546 thou/uL (152-406); RBC Red Blood Cell Count 3.07 M/uL (3.86-4.86)
[2024-12-11 06:39] LABS: Anion Gap 10.3 mEq/L (5.0-15.0); Magnesium 1.9 mg/dL (1.6-2.4); Phosphorus 2.1 mg/dL (2.5-4.9); Potassium 3.3 mEq/L (3.5-5.1)
--- NOTE | 2024-12-11 12:14 | ECHO ---
HEIGHT: 5 ft 6 in WEIGHT: 214 lb 0 oz DATE OF STUDY: 12/11/[address]: Prince Nickie Loaiza MD 2-DIMENSIONAL: YES M.MODE: YES DOPPLER: YS COLOR FLOW: YES TDS: YES PORTABLE: YES DEFINITY: BUBBLE STUDY: DIAGNOSIS: CONGESTIVE HEART FAILURE CARDIAC HISTORY: CATHERIZATION: NO SURGERY: NO PROSTHETIC VALVE: NO PACEMAKER: YES MEASUREMENTS (cm) DIASTOLIC (NORMALS) SYSTOLIC (NORMALS) IVSd 1.1 (0.6-1.2) LA Diam 4.0 (1.9-4.0) LVEF 60-65% LVIDd 4.3 (3.5-5.7) LVIDs 2.8 (2.0-3.5) %FS 34% LVPWd 1.2 (0.6-1.2) Ao Diam 2.7 (2.0-3.7) 2 DIMENSIONAL ASSESSMENT: RIGHT ATRIUM: NORMAL LEFT ATRIUM: SEVERLY DILATED RIGHT VENTRICLE: NORMAL LEFT VENTRICLE: NORMAL TRICUSPID VALVE: MILD TRICUSPID REGURIGTATION MITRAL VALVE: NORMAL PULMONIC VALVE: NORMAL AORTIC VALVE: NORMAL PERICARDIAL EFFUSION: NONE AORTIC ROOT: NORMAL LEFT VENTRICULAR WALL MOTION: NORMAL DOPPLER/COLOR FLOW: GRADE II DIASTOLIC DYSFUNCTION COMMENTS: 1. NORMAL LEFT VENTRICULAR SYSTOLIC FUNCTION, EJECTION FRACTION 60-65%, NORMAL WALL MOTION 2. GRADE II DIASTOLIC DYSFUNCTION 3. NO APICAL VIEWS TECHNOLOGIST: HUYEN GOLDMAN
--- NOTE | 2024-12-11 14:24 | P.PN ---
Date of Service: 12/11/24 Subjective: The patient is lying in bed. Pt appear more lethargic today. Not as verbal as before Objective: Temp Pulse Resp BP Pulse Ox 98.0 F 74 17 153/81 H 96 12/11/24 11:58 12/11/24 11:58 12/11/24 11:58 12/11/24 11:58 12/11/24 11:58 PE Neuro: ao x 2-3, lethargic Lungs:CTA Heart: S1, S2. Regular. Abdomen: Soft, nontender. Bowel sounds present. Skin: left upper extremity wound debridementwith dressing MSK: left shoulder weaker than right shoulder Blood Culture 12/05/24 :Enterococcus faecalis blood culture 12/09 aerobic and anaerobic no growth in 24 hrs Wound left shoulder culture: 12/06/24 staph Epidermidis Labwork Hematology: WBC 12.7, Hgb: 8.4, platelet 546 Chemistry: BUN 31, Creatinine: 1 current abx: zosyn vancomycin Assessment/Plan 1. Left shoulder abscess, status post debridement (improving) Continue current antibiotic including vancomycin and unasyn. Blood Culture 12/05/24 :Enterococcus faecalis: continue unasyn and vanco Monitor signs of infection with WBC and fever trends. idoform packing to wound area daily 2. Anemia of chronic disease. defer to primary Case discussed with DR. Tovar during round in agreement
[2024-12-12 07:45] LABS: Absolute Basophils 0.1 K/uL (0-0.5); Absolute Eosinophils 0.1 K/uL (0-0.5); Absolute Lymphocytes (CBC) 1.1 K/uL (0.7-4.9); Absolute Monocytes 1.4 K/uL (0.1-1.3); Absolute Neutrophil 12.4 K/uL (1.8-8.0); Basophils % 0.3 % (0-1.3); Eosinophils % 0.8 % (0-4.4); Hematocrit 21.4 % (36.0-45.0); Lymphocytes % 7.4 % (15.3-44.8); MCH 27.4 pg (27.0-35.0); MCHC 32.6 g/dL (32.0-36.0); MPV 6.7 fL (7.6-11.3); Monocytes % 9.1 % (3.3-12.3); Neutrophils % 82.4 % (41.7-73.7); Nucleated Red Blood Cells % 0.2 % (0-0); Platelets 429 thou/uL (152-406); RBC Red Blood Cell Count 2.55 M/uL (3.86-4.86); Red Cell Distribution Width 17.1 % (12.1-15.2)
[2024-12-12 08:03] LABS: Anion Gap 8.1 mEq/L (5.0-15.0); Magnesium 1.8 mg/dL (1.6-2.4); Phosphorus 2.2 mg/dL (2.5-4.9); Potassium 3.1 mEq/L (3.5-5.1)
[2024-12-12] MEDS: VANCOMYCIN 1.75 GM in NA CHLORIDE 0.9% 500 ML IVPB SCH (09:34)
[2024-12-12] MEDS ORDERED: SODIUM CHLORIDE 0.9% 10ML INJ IV PRN (10:58)
[2024-12-12 11:04] LABS: Absolute Basophils 0.1 K/uL (0-0.5); Absolute Eosinophils 0.1 K/uL (0-0.5); Absolute Lymphocytes (CBC) 1.2 K/uL (0.7-4.9); Absolute Monocytes 1.1 K/uL (0.1-1.3); Absolute Neutrophil 12.8 K/uL (1.8-8.0); Basophils % 0.7 % (0-1.3); Eosinophils % 0.9 % (0-4.4); Hematocrit 21.7 % (36.0-45.0); Lymphocytes % 7.7 % (15.3-44.8); MCH 27.2 pg (27.0-35.0); MCHC 32.1 g/dL (32.0-36.0); MCV 84.6 fL (80-100); MPV 6.6 fL (7.6-11.3); Monocytes % 7.4 % (3.3-12.3); Neutrophils % 83.3 % (41.7-73.7); Nucleated Red Blood Cells % 0.1 % (0-0); Platelets 423 thou/uL (152-406); RBC Red Blood Cell Count 2.56 M/uL (3.86-4.86); Red Cell Distribution Width 17.4 % (12.1-15.2)
[2024-12-12] MEDS: PANTOPRAZOLE 40 MG INJ IVP ONE (11:43)
--- NOTE | 2024-12-12 13:38 | PN ---
Subjective: The patient is lying in bed. No new acute event. Chart reviewed. Vital signs reviewed. Family by the bedside. Objective: Vital Signs: Temperature 97.8, pulse 76, respirations 12, blood pressure 149/56. Lungs: Basal crackles. Heart: S1, S2. Regular. Abdomen: Soft, nontender. Bowel sounds present. Extremities: Left arm 1+ edema. Laboratory Data: WBC 15.4, hemoglobin 7, platelets 423. Chemistry shows BUN 20 and creatinine 0.9. BNP is 2496. Blood cultures grew enterococcus faecalis. Assessment And Plan: 1. Enterococcus faecalis bacteremia. 2. Leukocytosis, possibly secondary to reactive from GI bleed versus inflammatory process. 3. Patient currently on Unasyn and vancomycin which had adequately covered the infection with Enterococcus faecalis. 4. Chronic anemia over by acute blood loss. Continue supportive care and wound care per surgical team. We will follow the patient as needed. NF/MODL Voice ID: [id number] Report ID: [id number]
[2024-12-12] MEDS: NA CHLORIDE 0.9% 250 ML ONE (13:45)
--- NOTE | 2024-12-12 14:05 | RAD REPORT ---
EXAMINATION: ONE VIEW CHEST XR CLINICAL INDICATION: Female, 79 years old.,pneumonia TECHNIQUE: Frontal chest projection is submitted. Examination is limited by patient positioning and t echnique. COMPARISON: 12/08/2024 FINDINGS: Mild retrocardiac opacification, mildly progressive. Left chest wall pacer in place. No pneumothorax or sizable effusion. The heart is upper limit of normal in size, stable. Mediastinal contours are unremarkable. IMPRESSION: Mildly progressive retrocardiac opacity may reflect atelectasis or early airspace disease.
[2024-12-12 18:57] LABS: Hematocrit 23.5 % (36.0-45.0); Hemoglobin 8.1 g/dL (12.0-15.0)
[2024-12-12] MEDS: HYDRALAZINE HCL 20 MG/ML VIAL IV PRN (21:14)
[2024-12-12] MEDS: PANTOPRAZOLE 40 MG INJ IVP SCH (21:14)
[2024-12-13 06:38] LABS: Absolute Basophils 0.1 K/uL (0-0.5); Absolute Eosinophils 0.1 K/uL (0-0.5); Absolute Lymphocytes (CBC) 1.2 K/uL (0.7-4.9); Absolute Monocytes 1.1 K/uL (0.1-1.3); Absolute Neutrophil 10.5 K/uL (1.8-8.0); Basophils % 0.6 % (0-1.3); Eosinophils % 0.9 % (0-4.4); Hematocrit 23.5 % (36.0-45.0); Hemoglobin 7.8 g/dL (12.0-15.0); Lymphocytes % 9.1 % (15.3-44.8); MCH 27.8 pg (27.0-35.0); MCHC 33.1 g/dL (32.0-36.0); MCV 83.9 fL (80-100); MPV 6.7 fL (7.6-11.3); Monocytes % 8.5 % (3.3-12.3); Neutrophils % 80.9 % (41.7-73.7); Nucleated Red Blood Cells % 0.1 % (0-0); Platelets 358 thou/uL (152-406); RBC Red Blood Cell Count 2.79 M/uL (3.86-4.86); Red Cell Distribution Width 16.6 % (12.1-15.2)
[2024-12-13 06:55] LABS: Anion Gap 8.1 mEq/L (5.0-15.0); Magnesium 1.8 mg/dL (1.6-2.4); Phosphorus 2.1 mg/dL (2.5-4.9); Potassium 3.1 mEq/L (3.5-5.1)
[2024-12-13] MEDS: LACTOBACILLUS/ACIDOPHILUS TAB PO SCH (16:52)
[2024-12-13] MEDS: NA CHLORIDE 0.9% 250 ML ONE (16:52)
--- NOTE | 2024-12-13 18:58 | P.PN ---
Date of Service: 12/13/24 Subjective: The patient is lying in bed. Respond to questions but still lethargic. staff report patient had one unit of blood transfusion yday Objective: Temp Pulse Resp BP Pulse Ox 97.6 F 75 16 156/50 H 98 12/13/24 16:00 12/13/24 17:47 12/13/24 16:00 12/13/24 17:47 12/13/24 16:00 PE Neuro: ao x 2-3, lethargic Lungs:basal crackles Heart: S1, S2. Regular. Abdomen: Soft, nontender. Bowel sounds present. Skin: left upper extremity wound debridement with dressing MSK: left shoulder weaker than right shoulder Blood Culture 12/05/24 :Enterococcus faecalis blood culture 12/09 aerobic and anaerobic no growth in 24 hrs Wound left shoulder culture: 12/06/24 staph Epidermidis Labwork Hematology: WBC 13, Hgb: 7.8, platelet 358 Chemistry: BUN 24, Creatinine: 0.88 current abx: unasyn. vancomycin on hold 12/12/24 due to trough level Assessment/Plan 1. Left shoulder abscess, status post debridement (improving) Blood Culture 12/05/24 :Enterococcus faecalis: continue unasyn and vanco Monitor signs of infection with WBC and fever trends. idoform packing to wound area daily. Continue supportive care and wound care per surgical team 2. Anemia of chronic disease. defer to primary Case discussed with DR. Tovar during round in agreement
[2024-12-14 06:17] LABS: Albumin 1.8 g/dL (3.4-5.0); Albumin/Globulin Ratio 0.5 (1.1-1.8); Anion Gap 8.1 mEq/L (5.0-15.0); Bilirubin Total 0.5 mg/dL (0.2-1.0); Globulin 3.5 g/dL (2.3-3.5); Magnesium 1.8 mg/dL (1.6-2.4); Potassium 3.1 mEq/L (3.5-5.1); Protein, Total 5.3 g/dL (6.4-8.2)
[2024-12-14 06:18] LABS: Absolute Basophils 0.1 K/uL (0-0.5); Absolute Eosinophils 0.1 K/uL (0-0.5); Absolute Lymphocytes (CBC) 1.1 K/uL (0.7-4.9); Absolute Monocytes 1.2 K/uL (0.1-1.3); Absolute Neutrophil 11.4 K/uL (1.8-8.0); Basophils % 0.4 % (0-1.3); Eosinophils % 1.1 % (0-4.4); Hematocrit 25.9 % (36.0-45.0); Hemoglobin 8.6 g/dL (12.0-15.0); MCHC 33.2 g/dL (32.0-36.0); MCV 84.3 fL (80-100); MPV 7.2 fL (7.6-11.3); Monocytes % 8.6 % (3.3-12.3); Neutrophils % 81.9 % (41.7-73.7); Nucleated Red Blood Cells % 0.1 % (0-0); Platelets 353 thou/uL (152-406); RBC Red Blood Cell Count 3.07 M/uL (3.86-4.86); Red Cell Distribution Width 16.2 % (12.1-15.2)
[2024-12-14 10:23] VITALS: O2SAT 99
[2024-12-14] MEDS: APIXABAN 5 MG TABLET PO SCH (10:23)
[2024-12-14 12:07] VITALS: TEMP 97.6
[2024-12-14 16:07] VITALS: BP 196/90
--- NOTE | 2024-12-21 13:30 | P.PN ---
Date of Service: 12/11/24 Subjective Patient is clinically doing well. Patient pain has improved. Continue with antibiotic therapy at this time. Discussed with Infectious Disease and plan for oral antibiotics at the time of discharge. Physical Examination - Physical Exam General: Acute distress HEENT: within normal limits Cardiovascular: Irregular heart rate/rhythm Pulmonary: clear bilaterally Neurological: no focal deficits Musculoskeletal: pain with range of motion of the left shoulder Assessment and Plan - Problems (Diagnosis) (1) Atrial fibrillation Current Visit: Yes Status: Acute (2) Left shoulder pain Current Visit: Yes Status: Acute (3) Abscess of left shoulder Current Visit: Yes Status: Acute Assessment: Cellulitis and abscess of left shoulder Atrial fibrillation on Eliquis - Plan Plan: Will admit inpatient with telemetry Empiric antibiotics IV fluid infusion Pain control Consult general surgery and Infectious Disease Will hold Eliquis in anticipation for possible I&D Resume rest of home medication upon reconciliation - Advance Directives Does patient have a Living Will: No Does patient have a Durable POA for Healthcare: No
--- NOTE | 2024-12-21 13:31 | P.PN ---
Date of Service: 12/12/24 Subjective patient is clinically doing will better. Patient's infection is better controlled. Patient is anemic and monitor H&H and may need blood transfusion. Continue monitoring hemodynamics closely. Physical Examination - Physical Exam General: Acute distress HEENT: within normal limits Cardiovascular: Irregular heart rate/rhythm Pulmonary: clear bilaterally Neurological: no focal deficits Musculoskeletal: pain with range of motion of the left shoulder Assessment and Plan - Problems (Diagnosis) (1) Atrial fibrillation Current Visit: Yes Status: Acute (2) Left shoulder pain Current Visit: Yes Status: Acute (3) Abscess of left shoulder Current Visit: Yes Status: Acute Assessment: Cellulitis and abscess of left shoulder Atrial fibrillation on Eliquis - Plan Plan: 1. Abscess of left shoulder status post I&D; continue with IV antibiotics. 2. Atrial fibrillation; rate controlled and continue with anticoagulation 3. Anemia; transfuse if hemoglobin less than 7. - Advance Directives Does patient have a Living Will: No Does patient have a Durable POA for Healthcare: No
--- NOTE | 2024-12-21 13:32 | P.PN ---
Date of Service: 12/13/24 Subjective patient continues to improve. Patient denies any new complaints. Patient's clinical symptoms are much better. Patient's hemoglobin is stable but will transfuse 1 more units of packed red blood cell. Physical Examination - Physical Exam General: Acute distress HEENT: within normal limits Cardiovascular: Irregular heart rate/rhythm Pulmonary: clear bilaterally Neurological: no focal deficits Musculoskeletal: pain with range of motion of the left shoulder Assessment and Plan - Problems (Diagnosis) (1) Atrial fibrillation Current Visit: Yes Status: Acute (2) Left shoulder pain Current Visit: Yes Status: Acute (3) Abscess of left shoulder Current Visit: Yes Status: Acute Assessment: Cellulitis and abscess of left shoulder Atrial fibrillation on Eliquis - Plan Plan: 1. Abscess of left shoulder status post I&D; continue with IV antibiotics. 2. Atrial fibrillation; rate controlled and continue with anticoagulation 3. Anemia; transfuse if hemoglobin less than 7. - Advance Directives Does patient have a Living Will: No Does patient have a Durable POA for Healthcare: No
--- NOTE | 2024-12-21 13:34 | P.DS ---
Discharge Date: 12/14/24 Disposition: DC HOME/HOME HEALTH CARE Discharge Condition: GOOD Reason for Admission: s/p I&D left shoulder Brief History of Present Illness: Patient is a 79-year-old female with a past medical history of atrial fibrillation currently on Eliquis. She is admitted for left shoulder pain, swelling and redness. She had a ground-level fall 6 weeks ago and has been experiencing progressively worsening pain on her left shoulder. Patient has been evaluated outpatient for this issue. She underwent ultrasound, which ruled out DVT. Soft tissue ultrasound was obtained. However, CT was recommended for further evaluation. She was diagnosed with cellulitis but failed outpatient therapy with Keflex and doxycycline.she is here for persistent symptoms. Workup in the ER revealed fluid collection concerning for abscess. Patient has an INR of 2.26. Dr. Parra from general surgery has been consulted Hospital Course: Patient has incision debridement of abscess left shoulder. Patient was slow to improve. Patient remained anemic and was very lethargic. However after hydration and giving blood transfusion patient's neurologic status has improved. Patient is doing much better and at this time patient is stable for discharge with outpatient follow-up with General surgery. Patient will continue with oral antibiotics. Vital Signs/Physical Exam: Temp Pulse Resp BP Pulse Ox 97.6 F 78 20 196/90 H 94 12/14/24 16:00 12/14/24 16:00 12/14/24 16:00 12/14/24 16:00 12/14/24 16:00 General: Alert, In no apparent distress, Oriented x3 Laboratory Data at Discharge: WBC 13.90 thou/uL (4.3-10.9) H 12/14/24 04:54 Hgb 8.6 g/dL (12.0-15.0) L D 12/14/24 04:54 Hct 25.9 % (36.0-45.0) L 12/14/24 04:54 Plt Count 353 thou/uL (152-406) 12/14/24 04:54 PT 20.9 SECONDS (10-13.0) H 12/06/24 06:43 INR 1.89 12/06/24 06:43 APTT 37.6 SECONDS (27.2-37.4) H 12/06/24 06:43 Sodium 142 mEq/L (136-145) 12/14/24 05:45 Potassium 3.1 mEq/L (3.5-5.1) L 12/14/24 05:45 BUN 27 mg/dL (7-18) H 12/14/24 05:45 Creatinine 0.86 mg/dL (0.55-1.02) 12/14/24 05:45 Glucose 103 mg/dL (74-106) 12/14/24 05:45 Phosphorus 2.1 mg/dL (2.5-4.9) L 12/13/24 06:18 Magnesium 1.8 mg/dL (1.6-2.4) 12/14/24 05:45 Total Bilirubin 0.5 mg/dL (0.2-1.0) 12/14/24 05:45 AST 15 U/L (15-37) 12/14/24 05:45 ALT 18 U/L (13-56) 12/14/24 05:45 Alkaline Phosphatase 110 U/L (45-117) 12/14/24 05:45 Triglycerides 72 mg/dL (<150) 12/06/24 06:43 Cholesterol 86 mg/dL (<200) 12/06/24 06:43 HDL Cholesterol 32 mg/dL (40-60) L 12/06/24 06:43 Cholesterol/HDL Ratio 2.69 12/06/24 06:43 Home Medications: Apixaban [Eliquis] 5 mg PO BID 12/06/24 Aspirin 81 mg PO DAILY 12/06/24 Fenofibrate,Micronized [Fenofibrate] 134 mg PO DAILY 12/06/24 Furosemide 40 mg PO BID 12/06/24 Levothyroxine Sodium 25 mcg PO DAILY 12/06/24 Metoprolol Tartrate 25 mg PO DAILY 12/06/24 Sildenafil Citrate 20 mg PO BID 12/06/24 Spironolactone 25 mg PO DAILY 12/06/24 Amox/Clavulanate [Augmentin 875-125 Tab] 875 mg PO BID #20 tab 12/14/24 Docusate [Colace Cap*] 100 mg PO BID #14 cap 12/14/24 Furosemide [Lasix*] 40 mg PO DAILY #30 tab 12/14/24 Hydrocodone 5/APAP 325 [[place] 5/325*] 1 tab PO Q8HP PRN #20 tab 12/14/24 Melatonin [Melatonin*] 3 mg PO BEDTIME PRN PRN #20 tab 12/14/24 Polyethyl Gly 3350 [Glycolax*] 17 gm PO DAILY PRN #30 marco 12/14/24 New Medications: Amox/Clavulanate [Augmentin 875-125 Tab] 875 mg PO BID #20 tab Docusate [Colace Cap*] 100 mg PO BID #14 cap Polyethyl Gly 3350 [Glycolax*] 17 gm PO DAILY PRN #30 marco PRN Reason: Constipation Furosemide [Lasix*] 40 mg PO DAILY #30 tab Melatonin [Melatonin*] 3 mg PO BEDTIME PRN PRN #20 tab PRN Reason: Insomnia Hydrocodone 5/APAP 325 [[place] 5/325*] 1 tab PO Q8HP PRN #20 tab PRN Reason: Pain Scale 5-7 (Moderate) Physician Discharge Instructions: -DC IV and DC home -Follow-up with PCP in 1 to 2 weeks -Follow-up with Dr. Parra, Surgery, in 1 to 2 weeks -Please call Dr. Mcfarland at [phone] if any questions regarding hospital stay -Please call nursing station at [phone] if any nursing or medication questions -Return to the emergency room if symptoms worsen Diet: AHA Activity: Fall precautions Followup: Davin Parra MD [ACTIVE - CAN ADMIT] - 1-2 Weeks Bozena Manning NP [Primary Care Provider] - 1-2 Weeks Time spent managing pt's care (in minutes): 35
== END 2024-12-14 16:30 | disposition home health service (06) | DRG 982 ==
LOC: ER 19:09 → ERHOLD 23:33 → 4TH 12-06 00:23
PROVIDERS: ADMIT Internal Medicine; ATTEND Hospitalist
PROC: 0R9K0ZZ Drainage of Left Shoulder Joint, Open Approach (ICD-10-PCS; principal; 2024-12-06 14:52)
DX: L02.414 Cutaneous abscess of left upper limb (principal); D62 Acute posthemorrhagic anemia; M00.9 Pyogenic arthritis, unspecified; M60.001 Infective myositis, unspecified left arm; I50.32 Chronic diastolic (congestive) heart failure; I11.0 Hypertensive heart disease with heart failure; L03.114 Cellulitis of left upper limb; D75.839 Thrombocytosis, unspecified; E03.9 Hypothyroidism, unspecified; E83.39 Other disorders of phosphorus metabolism; I48.91 Unspecified atrial fibrillation; D63.8 Anemia in other chronic diseases classified elsewhere; B95.2 Enterococcus as the cause of diseases classified elsewhere; Z95.0 Presence of cardiac pacemaker; Z79.01 Long term (current) use of anticoagulants; Z87.891 Personal history of nicotine dependence; Z86.718 Personal history of other venous thrombosis and embolism
CPT/HCPCS: 36415; 71045; 73201; 80048; 80053; 80061; 80202; 82533; 82947; 83605; 83735; 83880; 84100; 84145; 84443; 85014; 85018; 85025; 85610; 85730; 86141; 86850; 86900; 86901; 86920; 87040; 87070; 87075; 87077; 87186; 87205; 93005; 93306; 94010; 97110; 97116; 97161; 97530; 99285; J0295; J0360; J0692; J1100; J1171; J1940; J2003; J2250; J2405; J2470; J2543; J2704; J3010; J3370; J7030; J7040; J7050; P9016; Q9967

== ENCOUNTER 2024-12-20 13:57 | Inpatient (IN) | payer OTHER ==
[2024-12-20 14:59] LABS: Absolute Basophils 0.1 K/uL (0-0.5); Absolute Lymphocytes (CBC) 1.3 K/uL (0.7-4.9); Absolute Neutrophil 9.6 K/uL (1.8-8.0); Basophils % 0.6 % (0-1.3); Eosinophils % 0.3 % (0-4.4); Lymphocytes % 10.9 % (15.3-44.8); MCV 85.4 fL (80-100); MPV 7.4 fL (7.6-11.3); Monocytes % 8.2 % (3.3-12.3); Nucleated Red Blood Cells % 0.1 % (0-0); Platelets 422 thou/uL (152-406); RBC Red Blood Cell Count 2.11 M/uL (3.86-4.86); Red Cell Distribution Width 19.1 % (12.1-15.2)
[2024-12-20 15:13] LABS: Albumin/Globulin Ratio 0.5 (1.1-1.8); Anion Gap 8.5 mEq/L (5.0-15.0); Bilirubin Total 0.4 mg/dL (0.2-1.0); Globulin 3.8 g/dL (2.3-3.5); Potassium 3.5 mEq/L (3.5-5.1); Protein, Total 5.8 g/dL (6.4-8.2)
[2024-12-20 15:21] LABS: MCH 28.5 pg (27.0-35.0); MCHC 33.3 g/dL (32.0-36.0)
--- NOTE | 2024-12-20 15:36 | ER ---
Nurse's Notes [facility] [place] Name: Arabella Chou Age: 79 yrs Sex: Female : 1945 Arrival Date: 12/20/2024 Time: 13:57 Bed 8 Private MD: Diagnosis: Anemia, unspecified;GI Bleed/ Gastrointestinal hemorrhage, unspecified Presentation: 12/20 14:11 Chief complaint: Patient states: her hgb is 5.1, had labs drawn with home health iw yesterday , she was recently d/c from hospital after a shoulder abscess, she has been having blood in her stool since December 14. Coronavirus screen: At this time, the client does not indicate any symptoms associated with coronavirus-19. Ebola Screen: No symptoms or risks identified at this time. Initial Sepsis Screen: Does the patient meet any 2 criteria? No. Patient's initial sepsis screen is negative. Does the patient have a suspected source of infection? No. Patient's initial sepsis screen is negative. Risk Assessment: Do you want to hurt yourself or someone else? Patient reports no desire to harm self or others. 14:11 Method Of Arrival: Wheelchair iw 14:11 Acuity: PADMAJA 3 iw Historical: - PMHx: 14:14 Congestive heart failure; Deep vein thrombosis; Hypertensive disorder; iw - PSHx: 14:14 pacemaker; iw - Immunization history:: Adult Immunizations unknown. - Infectious Disease History:: Denies. - Social history:: Smoking status: Patient denies any tobacco usage or history of. Screenin:07 [facility] ED Fall Risk Assessment (Adult) History of falling in the last 3 months, db including since admission No falls in past 3 months (0 pts) Confusion or Disorientation No (0 pts) Intoxicated or Sedated No (0 pts) Impaired Gait Yes (1 pt) Mobility Assist Device Used Yes (1 pt) Altered Elimination No (0 pt) Score/Fall Risk Level 0 - 2 = Low Risk Oriented to surroundings, Maintained a safe environment. Abuse screen: Denies threats or abuse. Denies injuries from another. Nutritional screening: No deficits noted. Tuberculosis screening: No symptoms or risk factors identified. Assessment: 14:40 Reassessment: Patient appears in no apparent distress at this time. Patient and/or db family updated on plan of care and expected duration. Pain level reassessed. Patient is alert, oriented x 3, equal unlabored respirations, skin warm/dry/pink. General: Appears in no apparent distress. comfortable, Behavior is calm, cooperative. Neuro: Level of Consciousness is awake, alert, obeys commands, Oriented to person, place, time, situation. Respiratory: Airway is patent Respiratory effort is. 17:30 Reassessment: Patient appears in no apparent distress at this time. Patient and/or db family updated on plan of care and expected duration. Pain level reassessed. Patient is alert, oriented x 3, equal unlabored respirations, skin warm/dry/pink. BLOOD TRANSFUSION STARTED. SEE TRANSFUSION RECORD. Vital Signs: 14:11 BP 126 / 63; Pulse 88; Resp 16; Temp 97.1; Pulse Ox 100% on R/A; Weight 97.07 kg; iw Height 5 ft. 7 in. ; Pain 0/10; 14:30 BP 120 / 48; Pulse 79; Resp 18; Pulse Ox 98% on R/A; db 16:25 BP 108 / 83; Pulse 93; Resp 18; Pulse Ox 100% ; db 17:30 BP 117 / 39; Pulse 77; Resp 19; Temp 96.5; Pulse Ox 98% on R/A; db 17:45 BP 150 / 53; Pulse 75; Resp 20; Temp 97.6; Pulse Ox 100% ; db 17:50 BP 123 / 47; Pulse 71; Resp 21; Pulse Ox 100% ; db 14:11 Body Mass Index 33.52 (97.07 kg, 170.18 cm) iw 14:11 Pain Scale: Adult iw 17:30 BLOOD TRANSFUSION STARTED db ED Course: 13:59 Patient arrived in ED. mr 14:01 Ad[facility]C [facility] kb 14:01 Lester Gustafson DO is Attending Physician. kb 14:13 Triage completed. iw 14:14 Arm band placed on. iw 14:43 Type And Screen Sent. bc6 14:43 CBC with Diff Sent. bc6 14:43 CMP Sent. bc6 14:43 Lipase Sent. bc6 14:43 Initial lab(s) drawn, by me, sent to lab. T\T\S collected, blood band applied to patient. bc6 Inserted saline lock: 20 gauge in right antecubital area, using aseptic technique. Blood collected. Flushed with 10 mL NS. 15:36 Khoa Marquez MD is Hospitalizing Provider. kb 16:04 Jory Samuel, RN is Primary Nurse. db 17:50 Patient has correct armband on for positive identification. Placed in gown. Bed in low db position. Call light in reach. Side rails up X2. Provided Education on: Blood Transfusion. Client placed on continuous cardiac and pulse oximetry monitoring. NIBP monitoring applied. 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 Pulse ox on. NIBP on. 18:13 No provider procedures requiring assistance completed. Patient admitted, IV remains in db place. intact, No redness/swelling at site. Administered Medications: No medications were administered Medication: 17:50 VIS not applicable for this client. db Outcome: 15:36 Decision to Hospitalize by Provider. kb 18:14 Admitted to Med/surg accompanied by nurse, via stretcher, room 202, with chart, db 18:14 Condition: stable 18:14 Discharge instructions given to patient, Instructed on the need for admit, Demonstrated understanding of instructions, 18:15 Patient left the ED. db Signatures: Aditi Benz, BOAT TESTER-C BOAT TESTER-Ckb Milly Doe, Reg Reg mr Damaris Chou, RN RN iw Jory Samuel, RN RN db Savannah Muro 6 Corrections: (The following items were deleted from the chart) 18:28 17:30 Reassessment: Patient appears in no apparent distress at this time. Patient db and/or family updated on plan of care and expected duration. Pain level reassessed. Patient is alert, oriented x 3, equal unlabored respirations, skin warm/dry/pink. BLOOD TRANSFUSION STARTED db
--- NOTE | 2024-12-20 15:36 | EDPHYS ---
Physician Documentation [facility] Name: Arabella Chou Age: 79 yrs Sex: Female : 1945 Arrival Date: 12/20/2024 Time: 13:57 Bed 8 Private MD: ED Physician Lester Gustafson HPI: 12/20 15:35 This 79 yrs old Female presents to ER via Wheelchair with complaints of Abnormal Lab kb Results. 15:37 Patient is an 79-year-old female who presents for low hemoglobin. Daughter states kb patient was admitted here for an infection in her shoulder from 12/05 to 12/14 and had to be given 2 units of blood while she was admitted. States they were not sure where the bleeding was coming from and they did not seem to look into it further while admitted. daughter states she gave patient a bath on the third when they got home and noticed black, tarry stool. [facility] home health nurse conrad blood yesterday and she had a call today saying the hemoglobin was 5.1. Patient denies abdominal pain, nausea, vomiting, diarrhea. Historical: - PMHx: 14:14 Congestive heart failure; Deep vein thrombosis; Hypertensive disorder; iw - PSHx: 14:14 pacemaker; iw - Immunization history:: Adult Immunizations unknown. - Infectious Disease History:: Denies. - Social history:: Smoking status: Patient denies any tobacco usage or history of. ROS: 15:40 Constitutional: As per HPI kb Exam: 15:40 Head/Face: Normocephalic, atraumatic. ENT: Moist Mucous membranes Cardiovascular: kb Regular rate Respiratory: Respirations even and unlabored. No increased work of breathing. Talking in full sentences Abdomen/GI: Soft, non-tender. No distention Skin: Warm, dry with normal turgor. Normal color. MS/ Extremity: Pulses equal, no cyanosis. Neurovascular intact. Full, normal range of motion. Neuro: Awake and alert, GCS 15, oriented to person, place, time, and situation. 15:40 Constitutional: The patient appears alert, awake, pale, Vital Signs: 14:11 BP 126 / 63; Pulse 88; Resp 16; Temp 97.1; Pulse Ox 100% on R/A; Weight 97.07 kg; iw Height 5 ft. 7 in. ; Pain 0/10; 14:30 BP 120 / 48; Pulse 79; Resp 18; Pulse Ox 98% on R/A; db 16:25 BP 108 / 83; Pulse 93; Resp 18; Pulse Ox 100% ; db 17:30 BP 117 / 39; Pulse 77; Resp 19; Temp 96.5; Pulse Ox 98% on R/A; db 17:45 BP 150 / 53; Pulse 75; Resp 20; Temp 97.6; Pulse Ox 100% ; db 17:50 BP 123 / 47; Pulse 71; Resp 21; Pulse Ox 100% ; db 14:11 Body Mass Index 33.52 (97.07 kg, 170.18 cm) iw 14:11 Pain Scale: Adult iw 17:30 BLOOD TRANSFUSION STARTED db MDM: 14:01 Medical Screening Exam initiated kb 15:40 Differential diagnosis: GI bleed, anemia. Data reviewed: vital signs, nurses notes. kb Consideration of Admission/Observation Patient was admitted/placed on observation. Escalation of care including admission/observation considered. Management of patient was discussed with the following: Hospitalist: Discussed with LIN Negrete, accepted for admission under Dr Marquez. Test considered but Not performed: CT: ct abd considered but pt has no abd pain or tenderness. Historians other than the Patient: Daughter/Son: daughter. Counseling: I had a detailed discussion with the patient and/or guardian regarding the historical points, exam findings, and any diagnostic results supporting the discharge/admit diagnosis, lab results, the need for further work-up and treatment in the hospital. 16:22 External Records Reviewed: Inpatient record: inpatient record from recent admission kb reviewed. 12/20 14:17 Order name: CBC with Diff iw 12/20 14:17 Order name: CMP; Complete Time: 15:15 iw 12/20 14:17 Order name: Lipase; Complete Time: 15:15 iw 12/20 14:17 Order name: Urinalysis w/ reflexes iw 12/20 14:17 Order name: Type And Screen iw 12/20 15:36 Order name: Bb Add On bd 12/20 15:39 Order name: Packed RBC Leukored EDMS 12/20 16:05 Order name: CBC with Automated Diff EDMS 12/20 16:05 Order name: CBC with Automated Diff EDMS 12/20 16:05 Order name: CBC with Automated Diff EDMS 12/20 16:05 Order name: CBC with Automated Diff EDMS 12/20 16:05 Order name: CBC with Automated Diff EDMS 12/20 16:05 Order name: Comprehensive Metabolic Panel EDMS 12/20 16:05 Order name: Comprehensive Metabolic Panel EDMS 12/20 16:05 Order name: Comprehensive Metabolic Panel EDMS 12/20 16:05 Order name: Comprehensive Metabolic Panel EDMS 12/20 16:05 Order name: Comprehensive Metabolic Panel EDMS 12/20 16:05 Order name: Protime (+INR) EDMS 12/20 16:05 Order name: Protime (+INR) EDMS 12/20 16:05 Order name: PTT, Activated Partial Thromb EDMS 12/20 16:05 Order name: PTT, Activated Partial Thromb EDMS 12/20 16:05 Order name: Extremity Venous Uni Ltd EDMS 12/20 16:05 Order name: Extremity Venous Uni Ltd EDMS 12/20 14:17 Order name: IV Saline Lock; Complete Time: 14:43 iw 12/20 14:17 Order name: Labs collected and sent; Complete Time: 14:43 iw Administered Medications: No medications were administered Disposition: 21:48 I was immediately available on-site in the Emergency Department for consultation in the ms3 care of the patient. Disposition Summary: 12/20/24 15:36 Hospitalization Ordered Notes: Hospitalization Status: Observation kb Provider: Khoa Marquez Location: Telemetry/MedSurg (observation) kb Condition: Stable kb Problem: new kb Symptoms: are unchanged kb Bed/Room Type: Standard Room Assignment: 202(12/20/24 16:39) bd Diagnosis - Anemia, unspecified kb - GI Bleed/ Gastrointestinal hemorrhage, unspecified kb Forms: - Medication Reconciliation Form kb - SBAR form kb - Leadership Thank You Letter kb Critical care time excluding procedures: 16:22 Critical care time: Bedside Care: 10 minutes, Consultation: 10 minutes, Family kb Intervention: 10 minutes. Total time: 30 minutes Signatures: Dispatcher [employer] Aditi Gracia FNP-C FNP-Ary Byrne Irene, RN RN iw Lester Gustafson DO DO ms3 Jory Samuel RN RN db Corrections: (The following items were deleted from the chart) 14:17 14:17 CBC+H.LAB.BRZ ordered. EDMS EDMS 14:17 14:17 COMPREHENSIVE METABOLIC PANEL+C.LAB.BRZ ordered. EDMS EDMS 14:17 14:17 LIPASE+C.LAB.BRZ ordered. EDMS EDMS 14: 14:17 Urinalysis+U.LAB.BRZ ordered. EDMS EDMS 14: 14:17 TYPE AND SCREEN+BB.LAB.BRZ ordered. EDMS EDMS 16:39 15:36 kb bd
[2024-12-20] MEDS ORDERED: ONDANSETRON 4 MG/2 ML VIAL IV PRN (15:56)
--- NOTE | 2024-12-20 16:20 | P.HP ---
Certification for Inpatient Patient admitted to: Inpatient With expected LOS: >2 Midnights Patient will require the following post-hospital care: None Practitioner: I am a practitioner with admitting privileges, knowledge of patient current condition, hospital course, and medical plan of care. Services: Services provided to patient in accordance with Admission requirements found in Title 42 Section 412.3 of the Code of Federal Regulations Patient History Date of Service: 12/20/24 Reason for admission: Melena/upper GI bleed History of Present Illness: 79-year-old female with history of pulmonary hypertension, hypothyroidism, atrial fibrillation, DVT of the left lower extremity was recently hospitalized from 12/05 to 12/14 for left shoulder abscess/bacteremia presents to the hospital chief complaint of melena. Daughter at bedside reports that after coming home from the hospital and changing her she noticed that she had black stool with her brief, she has had 1 episode of melena daily since then and her daughter noticed that she was becoming more short of breath with exertion and pale, for that reason she brought her to the ER. Patient evaluated in the emergency department her labs are significant for hemoglobin of 6, her hemoglobin at discharge was 8.6, she did require blood transfusion during her last admission. Last dose of Eliquis was yesterday 12/19. Patient has never had EGD, had colonoscopy around 20 years ago with complications. Patient be admitted for acute blood loss anemia, upper GI bleed, melena Allergies No Known Allergies Allergy (Verified 12/06/24 01:26) Home Medications: Apixaban [Eliquis] 5 mg PO BID 12/06/24 Aspirin 81 mg PO DAILY 12/06/24 Fenofibrate,Micronized [Fenofibrate] 134 mg PO DAILY 12/06/24 Furosemide 40 mg PO BID 12/06/24 Levothyroxine Sodium 25 mcg PO DAILY 12/06/24 Metoprolol Tartrate 25 mg PO DAILY 12/06/24 Sildenafil Citrate 20 mg PO BID 12/06/24 Spironolactone 25 mg PO DAILY 12/06/24 Amox/Clavulanate [Augmentin 875-125 Tab] 875 mg PO BID #20 tab 12/14/24 Docusate [Colace Cap*] 100 mg PO BID #14 cap 12/14/24 Furosemide [Lasix*] 40 mg PO DAILY #30 tab 12/14/24 Hydrocodone 5/APAP 325 [[place] 5/325*] 1 tab PO Q8HP PRN #20 tab 12/14/24 Melatonin [Melatonin*] 3 mg PO BEDTIME PRN PRN #20 tab 12/14/24 Polyethyl Gly 3350 [Glycolax*] 17 gm PO DAILY PRN #30 marco 12/14/24 - Past Medical/Surgical History Diabetic: No -: Afib on Eliquis -: CHF-chronic diastolic -: Htn -: DVT -: Hypothyroidism -: Pulmonary hypertension Psychosocial/ Personal History: Lives at home with her daughter - Family History Father -: Hypertension - Social History Alcohol use: No CD- Drugs: No Caffeine use: Yes Place of Residence: Home Review of Systems 10-point ROS is otherwise unremarkable General: Malaise Gastrointestinal: Melena Physical Examination - Physical Exam General: Alert, In no apparent distress, Oriented x3 HEENT: Atraumatic, PERRLA, Other (Mucous membranes pale) Neck: Supple, 2+ carotid pulse no bruit, No LAD, Without JVD or thyroid abnormality Respiratory: Clear to auscultation bilaterally, Normal air movement Cardiovascular: Regular rate/rhythm, Normal S1 S2 Gastrointestinal: Normal bowel sounds, No tenderness Musculoskeletal: No tenderness Integumentary: Other (Skin is pale, dressing to left shoulder) Neurological: Normal gait, Normal speech, Normal strength at 5/5 x4 extr, Normal affect - Studies Laboratory Data (last 24 hrs) 12/20/24 12/20/24 14:35 14:35 WBC 12.00 H Hgb 6.0 L Hct 18.0 L Plt Count 422 H Sodium 140 Potassium 3.5 BUN 56 H Creatinine 1.21 H Glucose 126 H Total Bilirubin 0.4 AST 21 ALT 24 Alkaline Phosphatase 115 Lipase 71 Assessment and Plan - Plan Assessment: Acute blood loss anemia Melena/upper GI bleed History of atrial fibrillation/left lower extremity DVT on chronic anticoagulation with Eliquis Pulmonary hypertension Hypothyroidism Recent left shoulder infection/cellulitis/bacteremia Plan: Acute blood loss anemia Melena/upper GI bleed History of atrial fibrillation/left lower extremity DVT on chronic anticoagulation with Eliquis Hold Eliquis for now, last dose 12/19 Obtain left lower extremity venous Doppler to evaluate for DVT-family reports he was diagnosed in March 2024 Family also reports that she was started on the Eliquis for the DVT, not for A- fib Giving 1 unit PRBC now, recheck H&H 2 hours after this Transfuse to maintain hemoglobin greater than 8 given active melena Protonix drip GI consulted, notified N.p.o. after midnight Pulmonary hypertension Hypothyroidism Continue home medications when verified Recent left shoulder infection/cellulitis/bacteremia Still had a few days of oral Augmentin left to take We will treat with IV antibioticsUnasyn while inpatient DVT PPX: SCD Code status: Full Discharge Plan: Home - Advance Directives Does patient have a Living Will: Yes Does patient have a Durable POA for Healthcare: No - Code Status/Comfort Care Code Status Assessed: Yes (Full code) Critical Care: No Time Spent Managing Pts Care (In Minutes): 67
[2024-12-20] MEDS: PANTOPRAZOLE INJ 80 MG in NA CHLORIDE 0.9% 250 ML IV SCH (16:24)
[2024-12-20] MEDS ORDERED: NA CHLORIDE 0.9% 250 ML ONE (17:18)
[2024-12-20] MEDS: AMPICILLIN/SULBACT 3 GM in NA CHLORIDE 0.9% 100 ML IVPB SCH (18:00)
--- NOTE | 2024-12-20 20:48 | RAD REPORT ---
EXAMINATION: US LEFT LOWER EXTREMITY VENOUS DOPPLER CLINICAL INDICATION: [facility] MAIN LLE r/o dvt Y TECHNIQUE: Complete bilateral duplex sonography of the LEFT lower extremity veins was performed. The examination included compression for vein patency, color Doppler imaging and flow augmentation in response to distal compression of the distal external iliac, common femoral, femoral, popliteal, tibi al, and great and small saphenous veins. COMPARISON: No prior exam. FINDINGS: Duplex sonography testing of the veins of the LEFT lower extremity was performed. Color flow imaging shows all veins to be compressible with [id number] color filling. Pulsatile and phasic flow is present within all lower extremity deep and superficial veins examined. IMPRESSION: No evidence of deep venous thrombosis.
[2024-12-20 22:29] LABS: Hematocrit 19.5 % (36.0-45.0); Hemoglobin 6.5 g/dL (12.0-15.0)
[2024-12-20 22:30] VITALS: BMI 33.5
[2024-12-20] MEDS: NA CHLORIDE 0.9% 250 ML ONE (23:15)
[2024-12-21 04:05] LABS: Sqamous Epithelial None Seen /HPF (None Seen); Urine Bacteria None Seen /HPF (<20); Urine Bilirubin NEGATIVE (Negative); Urine Blood 2+ (Negative); Urine Clarity Turbid (Clear); Urine Color Light-Yellow (Yellow); Urine Culture Reflex Order NOT NEEDED; Urine Glucose NEGATIVE (Negative); Urine Ketones NEGATIVE (Negative); Urine Microscopic Reflex YN ORDER UMIC; Urine Nitrite NEGATIVE (Negative); Urine Protein TRACE (Negative); Urine RBC <5 /HPF (None Seen); Urine Urobilinogen Normal (Normal); Urine WBC <5 /HPF (<5); Urine Yeast (Budding) Trace /HPF (None Seen); Urine pH 5.5 (5.0-7.0)
[2024-12-21 04:53] LABS: Absolute Eosinophils 0.1 K/uL (0-0.5); Absolute Monocytes 0.8 K/uL (0.1-1.3); Basophils % 0.6 % (0-1.3); Eosinophils % 1.2 % (0-4.4); Hematocrit 21.9 % (36.0-45.0); Hemoglobin 7.4 g/dL (12.0-15.0); Lymphocytes % 12.7 % (15.3-44.8); MCH 28.7 pg (27.0-35.0); MCHC 33.9 g/dL (32.0-36.0); MCV 84.5 fL (80-100); MPV 7.1 fL (7.6-11.3); Monocytes % 10.1 % (3.3-12.3); Neutrophils % 75.4 % (41.7-73.7); Nucleated Red Blood Cells % 0.2 % (0-0); Platelets 364 thou/uL (152-406); RBC Red Blood Cell Count 2.59 M/uL (3.86-4.86); Red Cell Distribution Width 18.2 % (12.1-15.2)
[2024-12-21 05:08] LABS: PT Prothrombin Time 17.2 SECONDS (10-13.0); PTT, Activated Partial Thromb 39.9 SECONDS (27.2-37.4); Protime INR 1.54
[2024-12-21 05:12] LABS: Albumin 1.8 g/dL (3.4-5.0); Albumin/Globulin Ratio 0.5 (1.1-1.8); Anion Gap 10.2 mEq/L (5.0-15.0); Bilirubin Total 0.6 mg/dL (0.2-1.0); Globulin 3.5 g/dL (2.3-3.5); Potassium 3.2 mEq/L (3.5-5.1); Protein, Total 5.3 g/dL (6.4-8.2)
--- NOTE | 2024-12-21 09:15 | P.PN ---
Date of Service: 12/21/24 Subjective: Received 2 units of packed red blood cells overnight Mental status improving, color improving Patient very anxious about the situation/need for EGD ROS: 10 point ROS as noted above, otherwise negative Physical exam GEN: Alert, oriented x2-3, NAD HEENT: Normal conjunctiva, sclera anicteric CV: Regular rate and rhythm, no edema Pulm: Nonlabored respirations on room air ABD: Soft, nontender, nondistended MSK: No joint tenderness Integumentary: No rashes Neuro: Normal speech, normal affect Vitals reviewed Assessment: Acute blood loss anemia Melena/upper GI bleed History of atrial fibrillation/left lower extremity DVT on chronic anticoagulation with Eliquis Pulmonary hypertension Hypothyroidism Recent left shoulder infection/cellulitis/bacteremia Plan: Acute blood loss anemia Melena/upper GI bleed History of atrial fibrillation/left lower extremity DVT on chronic anticoagulation with Eliquis Hold Eliquis for now, last dose 12/19 DVT-family reports he was diagnosed in March 2024 for left lower extremity Family also reports that she was started on the Eliquis for the DVT, not for A- fib Ultrasound performed 12/20 shows no DVT in left lower extremity Given 2 units of PRBC overnight 12/20 Hemoglobin up to 7.4 today, recheck H&H at noon plan for EGD today or tomorrow per GI Protonix drip GI consulted, notified N.p.o. for now Pulmonary hypertension Hypothyroidism Continue home medications when verified Recent left shoulder infection/cellulitis/bacteremia Still had a few days of oral Augmentin left to take We will treat with IV antibioticsUnasyn while inpatient Continue dressing changes as previously ordered DVT PPX: SCD Code status: Full Discharge Plan: Home Time Spent Managing Pts Care (In Minutes): 35
[2024-12-21] MEDS: NA CHLORIDE 0.9% 250 ML IV ONE (09:36)
[2024-12-21] MEDS: KCL 20 MEQ/100 mL IVPB 20 MEQ/100 ML BAG IV SCH (10:18)
[2024-12-21] MEDS: AMPICILLIN/SULBACT 3 GM in NA CHLORIDE 0.9% 100 ML IVPB SCH (15:07)
[2024-12-21] MEDS: NA CHLORIDE 0.9% 500 ML ONE (18:50)
[2024-12-21] MEDS ORDERED: propofoL 200 MG/20 ML VIAL IV ONE (19:40)
[2024-12-21] MEDS: METOCLOPRAMIDE 10 MG/2mL INJ IV SCH ×2 (20:25→23:25)
[2024-12-21] MEDS: MAGNESIUM CITRATE 300 ML BOT PO SCH (21:43)
[2024-12-21] MEDS: BISACODYL E.C. 5 MG TAB PO ONE (21:43)
[2024-12-21] MEDS: GOLYTELY 4000 ML PO SCH (21:43)
[2024-12-21] MEDS: HYDRALAZINE HCL 20 MG/ML VIAL IV PRN (23:25)
--- NOTE | 2024-12-22 00:35 | CON ---
Date of Consultation: 12/21/2024 Reason For Consultation: Melena x7 days with anemia, hemoglobin 6.0. History Of Present Illness: This patient is an 79-year-old white female with history of hypertension , atrial fibrillation, congestive heart failure, pulmonary hypertension, DVT, and pacemaker. The pat luis was in usual state of health. She says about 7 days ago, she was in the hospital in a prior adm ission, from 12/05 to 12/14 for left shoulder abscess and bacteremia. At that time, she was having m jonathan, was placed on PPI therapy, which controlled her symptoms, went home, and seems that she does n ot have the PPI therapy and the black stools return. It appears by report of daughter. The patient is anemic with a hemoglobin of 6.0, low; was up to 7.4, it looks like with transfusion, prior to disc harge. She was then discharged with a hemoglobin of 8.6. She has never had an EGD. Her last colono scopy was approximately 20 years ago with complication of massive bleeding and possible perforation a t that time and decided never to have another colonoscopy since then. Past Medical History: Significant for hypertension, atrial fibrillation, congestive heart failure, p ulmonary hypertension, DVT, pacemaker placement, hypothyroidism. Medications: At home include Eliquis, aspirin, fenofibrate, Lasix, levothyroxine, metoprolol, silden afil, Aldactone, Augmentin, Colace, Lasix, [place], melatonin, and GlycoLax. Allergies: NKDA. Social History: She is a , 3 daughters. Quit tobacco at the age of 39, now she is 79, half her lifetime ago. No alcohol. Family History: Father of heart complications. Mother of old age. Father also had hypert ension, it appears by chart review. Review of Systems: The patient has melena, fatigue, weakness. She denies any hematochezia, hematemesis, coffee-grounds emesis, hemoptysis, epistaxis, hematuria, dysuria, polydipsia, chest pain, shortness of breath, seizu re, syncope, muscle aches, joint aches, backaches, depression, anxiety. Physical Examination: Vital Signs: She is 5 feet 7 inches, 214 pounds. BMI of 33.5 kg/m2. She has a temperature of 97 de grees Fahrenheit, pulse 72, respirations 16, blood pressure 147/66, O2 saturation 100%. General: She is mildly obese female lying in bed, in no acute distress. Tired and sleepy. Daughter answering most of her questions. HEENT: Normocephalic, atraumatic. Anicteric. Pupils equal, round, and reactive to light. Extraocu lar movements intact. Oropharynx is clear. Neck: Supple. No masses. Respirations: Clear to auscultation bilaterally. Cardiac: Regular rate and rhythm. Gastrointestinal: Positive bowel sounds. Soft, nontender, nondistended. No hepatosplenomegaly. Extremities: No clubbing, cyanosis, or edema. 2+ pulses. Neuro: Alert and oriented x3. Grossly nonfocal. Laboratory Data: The patient has white count of 8.0 down from 12.0 yesterday, hemoglobin of 7.4, up from 6.0 yesterday, hematocrit of 22, MCV of 85, platelet count of 364, polys of 75%, yesterday was 8 0%, lymphocytes 13%, monocytes 10%, and eosinophils 1%. PT of 17.2, INR of 1.54, PTT of 39.9 on Eliq uis. The patient has sodium 143, potassium 3.2, chloride 107, bicarb 29, BUN of 46, creatinine of 1. 01, glucose 110, calcium 8.9, total bilirubin 0.6, AST of 21, ALT of 22, alkaline phosphatase 102, to micheline protein 5.3, albumin 1.8, lipase 71. Urine, 2+ blood, 75 leukocytes esterase, trace crystals, tr ana yeast, trace protein, otherwise negative. Did have venous extremity Doppler and there was no odessa dence of DVT at that time, Eliquis is being held. Impression: 1. Melena x7 days. On Eliquis due to DVT in the right lower extremity approximately 9 months ago in the right leg. This is probably resolved since the venous study for DVT was negative. Last colonosc opy 20+ years ago with massive bleeding after that and she wanted to proceed repeat colonoscopy and p ossible perforation. No prior EGD. 2. Anemia. Hemoglobin of 6.0, up to 7.4 transfusion. 3. History of hypertension, atrial fibrillation, congestive heart failure, pulmonary hypertension, de ep venous thrombosis, hypothyroidism, pacemaker. Recommendations: 1. Continue resuscitation IV fluids. 2. Agree with packed RBCs transfusion. 3. EGD urgently. 4. PPI therapy. 5. Hold Eliquis at this time. NABILA/FIDE Voice ID: [id number] Report ID: [id number]
[2024-12-22] MEDS ORDERED: HYDROMORPHONE HCL 1 MG/ML INJ IV ONE (02:32)
[2024-12-22] MEDS: NA CHLORIDE 0.9% 1,000 ML ONE (02:44)
[2024-12-22] MEDS: FUROSEMIDE 20 MG/ 2ML VIAL IV STA (03:10)
[2024-12-22 07:15] LABS: Absolute Basophils 0.1 K/uL (0-0.5); Absolute Eosinophils 0.1 K/uL (0-0.5); Absolute Lymphocytes (CBC) 0.8 K/uL (0.7-4.9); Absolute Neutrophil 8.7 K/uL (1.8-8.0); Basophils % 0.7 % (0-1.3); Hematocrit 26.3 % (36.0-45.0); Hemoglobin 8.8 g/dL (12.0-15.0); Lymphocytes % 7.8 % (15.3-44.8); MCH 28.9 pg (27.0-35.0); MCHC 33.4 g/dL (32.0-36.0); MCV 86.4 fL (80-100); MPV 7.2 fL (7.6-11.3); Monocytes % 9.3 % (3.3-12.3); Neutrophils % 81.2 % (41.7-73.7); Nucleated Red Blood Cells % 0.1 % (0-0); Platelets 355 thou/uL (152-406); RBC Red Blood Cell Count 3.04 M/uL (3.86-4.86); Red Cell Distribution Width 18.1 % (12.1-15.2)
[2024-12-22 07:32] LABS: Albumin 1.9 g/dL (3.4-5.0); Albumin/Globulin Ratio 0.5 (1.1-1.8); Anion Gap 14.4 mEq/L (5.0-15.0); Bilirubin Total 0.6 mg/dL (0.2-1.0); Globulin 3.6 g/dL (2.3-3.5); Potassium 3.4 mEq/L (3.5-5.1); Protein, Total 5.5 g/dL (6.4-8.2)
--- NOTE | 2024-12-22 09:44 | P.PN ---
Date of Service: 12/22/24 Subjective: Has received a total of 3 units of PRBC Mental status improving, color improving Patient anxious about procedures ROS: 10 point ROS as noted above, otherwise negative Physical exam GEN: Alert, oriented x2-3, NAD HEENT: Normal conjunctiva, sclera anicteric CV: Regular rate and rhythm, no edema Pulm: Nonlabored respirations on room air ABD: Soft, nontender, nondistended MSK: No joint tenderness Integumentary: No rashes Neuro: Normal speech, normal affect Vitals reviewed Assessment: Acute blood loss anemia Melena/upper GI bleed History of atrial fibrillation/left lower extremity DVT on chronic anticoagulation with Eliquis Pulmonary hypertension Hypothyroidism Recent left shoulder infection/cellulitis/bacteremia Plan: Acute blood loss anemia Melena/upper GI bleed History of atrial fibrillation/left lower extremity DVT on chronic anticoagulation with Eliquis Hold Eliquis for now, last dose 12/19 DVT-family reports he was diagnosed in March 2024 for left lower extremity Family also reports that she was started on the Eliquis for the DVT, not for A- fib Ultrasound performed 12/20 shows no DVT in left lower extremity Given 2 units of PRBC overnight 12/20 . Unit given overnight 12/21 Protonix drip EGD performed 12/21 showed duodenitis no obvious signs of bleeding Plan for colonoscopy today 12/22 In regards to Eliquis patient's family had stated this was being taken for the DVT although she has not has underlying atrial fibrillation Will need to discuss with GI possibility of resuming Eliquis after findings from colonoscopy are taken into account Pulmonary hypertension Hypothyroidism Continue home medications when verified Recent left shoulder infection/cellulitis/bacteremia Still had a few days of oral Augmentin left to take We will treat with IV antibioticsUnasyn while inpatient Continue dressing changes as previously ordered DVT PPX: SCD Code status: Full Discharge Plan: Home Time Spent Managing Pts Care (In Minutes): 35
[2024-12-22] MEDS: PANTOPRAZOLE INJ 80 MG in NA CHLORIDE 0.9% 250 ML IV SCH (10:10)
[2024-12-22] MEDS: Ringers Lactate 1,000 ML IV ONE (15:23)
[2024-12-22] MEDS ORDERED: propofoL 200 MG/20 ML VIAL IV ONE (16:05)
[2024-12-22] MEDS: EPINEPHRINE 1 MG/ML VIAL ONE (16:06)
[2024-12-22 17:09] VITALS: O2SAT 96
--- NOTE | 2024-12-22 21:00 | RAD REPORT ---
EXAM: CT CHEST, ABDOMEN AND PELVIS WITH CONTRAST CLINICAL INDICATION: cecal mass, eval lesions/lymphadenopathy, liver TECHNIQUE: CT chest, abdomen and pelvis was performed, following the administration of contrast, as p er department protocol. Axial, sagittal and coronal reconstructions were obtained. One or more of the following dose reduction techniques were used: Automated exposure control, adjustment of the mA a nd/or kV according to patient size, and/or iterative reconstruction. Unless otherwise specified, incidental findings do not require dedicated imaging follow-up. COMPARISON: No prior exam. FINDINGS: LUNGS: Mild linear opacities in both lung bases likely representing atelectasis. PLEURA: Small bilateral pleural effusions. MEDIASTINUM AND LYMPH NODES: No mediastinal mass or fluid collection. Normal size mediastinal, hilar, and axillary lymph nodes. The heart is mildly enlarged. Multilead pacer device. OSSEOUS STRUCTURES AND CHEST WALL: Intact. LIVER: The liver demonstrates mild fatty infiltration. No focal lesion or biliary dilatation is seen. Grossly unremarkable gallbladder. PANCREAS: No mass, ductal dilation, or angelo-pancreatic fluid. SPLEEN: Normal size. No focal lesion. ADRENALS: Normal; no mass. KIDNEYS: Normal size and contour. No hydronephrosis. URINARY BLADDER: Normal contour. GASTROINTESTINAL TRACT: No bowel obstruction, free air, significant free fluid or abscess. Mild sig moid diverticulosis coli. APPENDIX: Appendix not visualized, but no inflammatory changes in region of appendix. LYMPH NODES: Mildly prominent left para-aortic lymph nodes are noted, measuring up to 12 mm. MUSCULOSKELETAL: Moderate lumbar levoscoliosis. Small fat-containing umbilical hernia. Moderate supra umbilical fat-containing ventral hernia. IMPRESSION: Mild diffuse fatty liver. Mildly enlarged left para-aortic lymph nodes. Indeterminate. PET/CT follow-up would be suggested for further assessment.
[2024-12-23 06:28] LABS: Absolute Basophils 0.1 K/uL (0-0.5); Absolute Eosinophils 0.2 K/uL (0-0.5); Absolute Lymphocytes (CBC) 0.9 K/uL (0.7-4.9); Absolute Monocytes 0.6 K/uL (0.1-1.3); Absolute Neutrophil 6.1 K/uL (1.8-8.0); Basophils % 0.6 % (0-1.3); Hematocrit 24.9 % (36.0-45.0); Hemoglobin 8.3 g/dL (12.0-15.0); Lymphocytes % 11.7 % (15.3-44.8); MCH 28.9 pg (27.0-35.0); MCHC 33.3 g/dL (32.0-36.0); MCV 86.9 fL (80-100); Monocytes % 7.1 % (3.3-12.3); Neutrophils % 78.6 % (41.7-73.7); Nucleated Red Blood Cells % 0.1 % (0-0); Platelets 351 thou/uL (152-406); RBC Red Blood Cell Count 2.87 M/uL (3.86-4.86); Red Cell Distribution Width 18.6 % (12.1-15.2)
[2024-12-23 06:42] LABS: Albumin 1.8 g/dL (3.4-5.0); Albumin/Globulin Ratio 0.5 (1.1-1.8); Bilirubin Total 0.5 mg/dL (0.2-1.0); Carcinoembryonic Antigen 3.2 ng/mL (0-5.0); Globulin 3.4 g/dL (2.3-3.5); Protein, Total 5.2 g/dL (6.4-8.2)
[2024-12-23] MEDS: POTASSIUM 25 MEQ EFFERV TAB PO ONE (08:03)
[2024-12-23 12:52] VITALS: BP 155/61; TEMP 97.9
--- NOTE | 2024-12-23 13:58 | P.DS ---
Admission Date: 12/20/24 Discharge Date: 12/23/24 Disposition: ROUTINE DISCHARGE Discharge Condition: GOOD Reason for Admission: Melena/upper GI bleed Brief History of Present Illness: Diagnosis Acute blood loss anemia Melena/upper GI bleed History of atrial fibrillation/left lower extremity DVT on chronic anticoagulation with Eliquis Pulmonary hypertension Hypothyroidism Recent left shoulder infection/cellulitis/bacteremia HPI 12/20/24 79-year-old female with history of pulmonary hypertension, hypothyroidism, atrial fibrillation, DVT of the left lower extremity was recently hospitalized from 12/05 to 12/14 for left shoulder abscess/bacteremia presents to the hospital chief complaint of melena. Daughter at bedside reports that after coming home from the hospital and changing her she noticed that she had black stool with her brief, she has had 1 episode of melena daily since then and her daughter noticed that she was becoming more short of breath with exertion and pale, for that reason she brought her to the ER. Patient evaluated in the emergency department her labs are significant for hemoglobin of 6, her hemoglobin at discharge was 8.6, she did require blood transfusion during her last admission. Last dose of Eliquis was yesterday 12/19. Patient has never had EGD, had colonoscopy around 20 years ago with complications. Patient be admitted for acute blood loss anemia, upper GI bleed, melena Vital Signs/Physical Exam: Temp Pulse Resp BP Pulse Ox 97.9 F 85 16 155/61 H 95 12/23/24 12:00 12/23/24 12:00 12/23/24 12:00 12/23/24 12:00 12/23/24 12:00 Laboratory Data at Discharge: WBC 7.70 thou/uL (4.3-10.9) 12/23/24 04:54 Hgb 8.3 g/dL (12.0-15.0) L 12/23/24 04:54 Hct 24.9 % (36.0-45.0) L 12/23/24 04:54 Plt Count 351 thou/uL (152-406) 12/23/24 04:54 PT 17.2 SECONDS (10-13.0) H 12/21/24 04:33 INR 1.54 12/21/24 04:33 APTT 39.9 SECONDS (27.2-37.4) H 12/21/24 04:33 Sodium 147 mEq/L (136-145) H 12/23/24 05:45 Potassium 3.0 mEq/L (3.5-5.1) L 12/23/24 05:45 BUN 23 mg/dL (7-18) H 12/23/24 05:45 Creatinine 0.88 mg/dL (0.55-1.02) 12/23/24 05:45 Glucose 74 mg/dL (74-106) 12/23/24 05:45 Total Bilirubin 0.5 mg/dL (0.2-1.0) 12/23/24 05:45 AST 23 U/L (15-37) 12/23/24 05:45 ALT 22 U/L (13-56) 12/23/24 05:45 Alkaline Phosphatase 108 U/L (45-117) 12/23/24 05:45 Lipase 71 U/L (13-75) 12/20/24 14:35 Home Medications: Fenofibrate,Micronized [Fenofibrate] 134 mg PO DAILY 12/06/24 Furosemide 40 mg PO BID 12/06/24 Levothyroxine Sodium 25 mcg PO DAILY 12/06/24 Metoprolol Tartrate 25 mg PO DAILY 12/06/24 Sildenafil Citrate 20 mg PO BID 12/06/24 Spironolactone 25 mg PO DAILY 12/06/24 Amox/Clavulanate [Augmentin 875-125 Tab*] 875 mg PO BID #20 tab 12/14/24 Docusate [Colace Cap*] 100 mg PO BID #14 cap 12/14/24 Furosemide [Lasix*] 40 mg PO DAILY #30 tab 12/14/24 Hydrocodone 5/APAP 325 [[place] 5/325*] 1 tab PO Q8HP PRN #20 tab 12/14/24 Melatonin [Melatonin*] 3 mg PO BEDTIME PRN PRN #20 tab 12/14/24 Polyethyl Gly 3350 [Glycolax*] 17 gm PO DAILY PRN #30 marco 12/14/24 Pantoprazole [Protonix Tab] 40 mg PO BID 20 Days #30 tab 12/23/24 New Medications: Pantoprazole [Protonix Tab] 40 mg PO BID 20 Days #30 tab Physician Discharge Instructions: 1. Please call and schedule a follow-up appointment with your PCP in 3-5 days - Please follow-up with your PCP for medication refills/adjustments 2. Please call and schedule a follow-up appointment with Dr. Miller in 1 week -Protonix provided, Dr. Miller may adjust dosage -Dr. Miller will plan for a small bowel series and a PET scan outpatient 3. Continue soft GI diet as tolerated, may need to revert back to full liquid diet if soft GI becomes uncomfortable 4. activity restrictions fall precaution 5. Return to the ED if symptoms worsen New medications Protonix 40 mg twice daily x 10 days then Protonix 40 mg daily x 10 days If augmentin was not finished, please continue at home Activity: Fall precautions Followup: Bozena Manning NP [Primary Care Provider] -
--- NOTE | 2024-12-23 16:23 | P.PN ---
Subjective Date of Service: 12/23/24 Chief Complaint: Melena/ GI bleed Subjective: Improving (Large 7 X 4 cm flat mass in cecum extending to terminal ileum orifice and 7 mm flat polyp proximal ascending colon and 1.2 cm flat polyp in the mid ascending colon. Hgb 6.0 on admission.), Other (History of last colonoscopy 20+ years ago with massive post-op bleed and hospitalization. CT chest/abdomen/pelvis -> enlarged left para-aortic lymph nodes. CEA 3.2.) Physical Examination - Vital Signs Temperature: 97.9 F Blood Pressure: 155/61 Pulse: 85 Respirations: 16 Pulse Ox (%): 95 Assessment And Plan - Current Problems (Diagnosis) (1) Melena Current Visit: Yes Status: Acute (2) Anemia, iron deficiency Current Visit: Yes Status: Acute (3) Abnormal CT of the abdomen Current Visit: Yes Status: Acute (4) Enlarged lymph nodes Current Visit: Yes Status: Acute (5) Mass of cecum Current Visit: Yes Status: Acute - Plan REC: 1) GI clinic f/u next week 2) discuss result and options in this 79 y.o. patient
== END 2024-12-23 16:00 | disposition home or self-care (01) | DRG 378 ==
LOC: ER 13:57 → ERHOLD 15:56 → 2ND 18:22
PROVIDERS: ADMIT Hospitalist; ATTEND Hospitalist
PROC: 0DB78ZX Excision of Stomach, Pylorus, Via Natural or Artificial Opening Endoscopic, Diagnostic (ICD-10-PCS; 2024-12-21)
PROC: 30233N1 Transfusion of Nonautologous Red Blood Cells into Peripheral Vein, Percutaneous Approach (ICD-10-PCS; 2024-12-21)
PROC: 0DB68ZX Excision of Stomach, Via Natural or Artificial Opening Endoscopic, Diagnostic (ICD-10-PCS; principal; 2024-12-21 19:45)
PROC: 0DJD8ZZ Inspection of Lower Intestinal Tract, Via Natural or Artificial Opening Endoscopic (ICD-10-PCS; 2024-12-22)
DX: K29.81 Duodenitis with bleeding (principal); D62 Acute posthemorrhagic anemia; I50.32 Chronic diastolic (congestive) heart failure; I11.0 Hypertensive heart disease with heart failure; K63.9 Disease of intestine, unspecified; K29.71 Gastritis, unspecified, with bleeding; K63.5 Polyp of colon; K64.8 Other hemorrhoids; K64.4 Residual hemorrhoidal skin tags; E03.9 Hypothyroidism, unspecified; I48.91 Unspecified atrial fibrillation; I27.20 Pulmonary hypertension, unspecified; K57.31 Diverticulosis of large intestine without perforation or abscess with bleeding; R59.9 Enlarged lymph nodes, unspecified; Z79.01 Long term (current) use of anticoagulants; Z79.82 Long term (current) use of aspirin; Z79.890 Hormone replacement therapy; Z79.899 Other long term (current) drug therapy; Z86.718 Personal history of other venous thrombosis and embolism
CPT/HCPCS: 36415; 36430; 71260; 74177; 80053; 81001; 82378; 82947; 83690; 85014; 85018; 85025; 85610; 85730; 86850; 86900; 86901; 86920; 88305; 88312; 93971; 99285; J0171; J0295; J0360; J1938; J2470; J2704; J2765; J3480; J7030; J7040; J7050; J7120; P9016; Q9967

== ENCOUNTER 2025-01-02 18:23 | Inpatient (IN) | payer OTHER ==
[2025-01-02] MEDS ORDERED: HYDROCORTISONE SUC 100 MG INJ ONE (19:29)
[2025-01-02] MEDS ORDERED: CEFEPIME 1 GM/VIAL ONE (19:30)
[2025-01-02] MEDS ORDERED: FAMOTIDINE 20 MG/2 ML VIAL IV ONE (19:30)
[2025-01-02] MEDS ORDERED: NA CHLORIDE 0.9% 3,000 ML ONE (19:30)
[2025-01-02] MEDS ORDERED: NA CHLORIDE 0.9% 100 ML ONE (19:30)
--- NOTE | 2025-01-02 19:33 | RAD REPORT ---
EXAMINATION: ONE VIEW CHEST XR CLINICAL INDICATION: COUGH TECHNIQUE: Frontal chest projection is submitted. Examination is limited by patient positioning and t echnique. COMPARISON: 12/12/2024 FINDINGS: Mild interstitial pulmonary edema seen. Patchy opacity in both lung bases, greater on the left may be chronic or related to mild infiltrate/pneumonia. The heart is moderately enlarged. No displaced fractures identified. Single-lead pacer device.
[2025-01-02 19:36] LABS: Absolute Eosinophils 0.1 K/uL (0-0.5); Absolute Monocytes 0.6 K/uL (0.1-1.3); Basophils % 0.7 % (0-1.3); Eosinophils % 1.4 % (0-4.4); Hematocrit 28.3 % (36.0-45.0); Hemoglobin 9.3 g/dL (12.0-15.0); Lymphocytes % 17.4 % (15.3-44.8); MCH 28.7 pg (27.0-35.0); MCHC 32.9 g/dL (32.0-36.0); MCV 87.4 fL (80-100); MPV 7.6 fL (7.6-11.3); Monocytes % 9.9 % (3.3-12.3); Neutrophils % 70.6 % (41.7-73.7); Nucleated Red Blood Cells % 0.2 % (0-0); Platelets 250 thou/uL (152-406); RBC Red Blood Cell Count 3.24 M/uL (3.86-4.86); Red Cell Distribution Width 20.6 % (12.1-15.2)
[2025-01-02 19:41] LABS: PT Prothrombin Time 14.7 SECONDS (10-13.0); Protime INR 1.31
[2025-01-02 20:01] LABS: Albumin 1.9 g/dL (3.4-5.0); Albumin/Globulin Ratio 0.5 (1.1-1.8); Anion Gap 8.7 mEq/L (5.0-15.0); Bilirubin Direct 0.2 mg/dL (0-0.2); Bilirubin Indirect, Calculated 0.1 mg/dL (0.2-0.8); Bilirubin Total 0.3 mg/dL (0.2-1.0); Globulin 3.8 g/dL (2.3-3.5); Magnesium 1.9 mg/dL (1.6-2.4); Potassium 3.7 mEq/L (3.5-5.1); Protein, Total 5.7 g/dL (6.4-8.2); Thyroid Stimulating Hormone 8.33 uIU/mL (0.358-3.740); Troponin High Sensitivity 10.6 pg/mL (<58.9)
--- NOTE | 2025-01-02 20:11 | RAD REPORT ---
EXAM: CT CHEST, ABDOMEN AND PELVIS WITHOUT CONTRAST CLINICAL INDICATION: TRAUMA TECHNIQUE: CT chest, abdomen and pelvis was performed without contrast, as per department protocol. A xial, sagittal and coronal reconstructions were obtained. One or more of the following dose reduction techniques were used: Automated exposure control, adjustment of the mA and/or kV according to patient size, and/or iterative reconstruction. Unless otherwise specified, incidental findings do not require dedicated imaging follow-up. Examination is limited by the lack of intravenous contrast material. COMPARISON: No prior exam. FINDINGS: LUNGS: Mild linear atelectasis is present in both lung bases posteriorly. PLEURA: Trace bilateral pleural fluid. MEDIASTINUM AND LYMPH NODES: No mediastinal mass or fluid collection. Normal size mediastinal, hilar, and axillary lymph nodes. Dual lead pacer device present. Mild cardiomegaly. OSSEOUS STRUCTURES AND CHEST WALL: Intact. LIVER: Mildly nodular liver contour suggesting mild cirrhosis. Grossly unremarkable gallbladder. PANCREAS: No mass, ductal dilation, or angelo-pancreatic fluid. SPLEEN: Normal size. No focal lesion. ADRENALS: Normal; no mass. KIDNEYS: Normal size and contour. No hydronephrosis. URINARY BLADDER: Normal contour. GASTROINTESTINAL TRACT: No bowel obstruction, free air, significant free fluid or abscess. APPENDIX: Normal appendix. LYMPH NODES: Enlarged left para-aortic lymph node present measuring up to 15 mm. This is indeterminat e. Several additional mildly enlarged left para-aortic nodes are present MUSCULOSKELETAL: Mild to moderate lumbar degenerative changes. Lumbar levoscoliosis. OTHER: Focal fat-containing midline ventral and umbilical hernias IMPRESSION: No acute abnormalities seen in the chest, abdomen or pelvis.
--- NOTE | 2025-01-02 20:13 | RAD REPORT ---
EXAM: CT brain without contrast HISTORY: TRAUMA COMPARISON: None TECHNIQUE: Multiple contiguous axial images were obtained and a CT of the brain without contrast. Sag ittal and coronal reformats were performed. One or more of the following dose reduction techniques were used: Automated exposure control, adjust ment of the mA and/or kV according to patient size, and/or iterative reconstruction. FINDINGS: No evidence of hydrocephalus, intracranial hemorrhage, or extra-axial fluid collection. Mild brain atrophy with mild periventricular and deep white matter chronic microvascular ischemic ch anges present. No evidence of midline shift or areas of brain edema. The calvarium is intact. The visualized paranasal sinuses and mastoid air cells are essentially clear . EXAM: CT of the cervical spine without contrast HISTORY: Neck pain, injury TRAUMA TECHNIQUE: Multiple contiguous axial images were obtained in a CT of the cervical spine without contr ast. Sagittal and coronal reformats were performed. FINDINGS: 4 mm anterolisthesis C4 on 5. 2-3 mm anterolisthesis C5 on 6. No evidence of acute fracture or subluxation.. Prominent bilateral facet arthrosis seen throughout the cervical spine. No prevertebral soft tissue swelling is seen. The lung apices are unremarkable. COMBINED IMPRESSION: No evidence of acute intracranial abnormality. No evidence of acute osseous abnormality of the cervical spine. 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 Follow-up MR ginna g may be useful.
[2025-01-02 20:17] LABS: Specific Gravity 1.014 (1.005-1.030); Sqamous Epithelial None Seen /HPF (None Seen); Urine Bacteria <20 /HPF (<20); Urine Bilirubin NEGATIVE (Negative); Urine Blood 2+ (Negative); Urine Clarity Extremely Turbid (Clear); Urine Color Yellow (Yellow); Urine Crystals Unidentified Few /HPF (None Seen); Urine Culture Reflex Order REFLEXED; Urine Glucose NEGATIVE (Negative); Urine Ketones NEGATIVE (Negative); Urine Microscopic Reflex YN ORDER UMIC; Urine Mucus 4+ /HPF (None Seen); Urine Nitrite 1+ (Negative); Urine Protein TRACE (Negative); Urine Urobilinogen Normal (Normal); Urine WBC >50 /HPF (<5); Urine WBC Clump Few /HPF (None Seen)
--- NOTE | 2025-01-02 20:51 | ER ---
Nurse's Notes [facility] Name: Arabella Chou Age: 79 yrs Sex: Female : 1945 Arrival Date: 01/02/2025 Time: 18:23 Bed 14 Private MD: Diagnosis: Lobar pneumonia, unspecified organism;UTI/ Urinary tract infection, site not specified Presentation: 01/02 18:51 Chief complaint: EMS states: toned out for AMS. Patient is normally A\T\OX4 but is only me1 responsive to pain for EMS. Patient did complain when ambulance went around a corner fast. Was recently hospitalized for GI bleed. Has chronic BLE cellulitis and family reports her legs look worse than normal today. Patient had PT at home today but refused. EKG- paced. BGL 60, 24 g to R hand and was given 50 ml of D10 bringing BGL up to 113 but did not help patient become more alert. Coronavirus screen: At this time, the client does not indicate any symptoms associated with coronavirus-19. Ebola Screen: No symptoms or risks identified at this time. Initial Sepsis Screen: Does the patient meet any 2 criteria? No. Patient's initial sepsis screen is negative. Does the patient have a suspected source of infection? No. Patient's initial sepsis screen is negative. Risk Assessment: Do you want to hurt yourself or someone else? Patient reports no desire to harm self or others. Onset of symptoms was December 29, 2024. 18:51 Method Of Arrival: EMS: [facility] [place] Acuity: PADMAJA 3 me1 Triage Assessment: 19:02 General: Appears in no apparent distress. obese, well groomed, well developed, Behavior me1 is appropriate for age, drowsy, quiet, Reports family states patient has had decreased po intake for the past 3-4 days, is sleeping most of the time with intermittent episodes of arousal with stimulus and worsening of chronic cellulitis of BLE. Pain: Unable to use pain scale. Patient is unresponsive. EENT: No signs and/or symptoms were reported regarding the EENT system. Neuro: Level of Consciousness is unresponsive, Oriented to mumbles to painful stimuli. Cardiovascular: Patient's skin is warm and dry. Respiratory: Airway is patent Respiratory effort is even, unlabored, Respiratory pattern is regular, symmetrical. GI: No signs and/or symptoms were reported involving the gastrointestinal system. : No signs and/or symptoms were reported regarding the genitourinary system. Derm: Skin is fragile, is thin, with poor turgor Skin is pale. Musculoskeletal: No signs and/or symptoms reported regarding the musculoskeletal system. Historical: - Allergies: 19:02 No Known Allergies; me1 - PMHx: 19:02 Congestive heart failure; Deep vein thrombosis; Hypertensive disorder; me1 - PSHx: 19:02 pacemaker; me1 - Immunization history:: Adult Immunizations up to date. - Infectious Disease History:: Denies. - Social history:: Smoking status: unknown. Screenin:06 [facility] ED Fall Risk Assessment (Adult) History of falling in the last 3 months, me1 including since admission No falls in past 3 months (0 pts) Confusion or Disorientation No (0 pts) Intoxicated or Sedated No (0 pts) Impaired Gait No (0 pts) Mobility Assist Device Used No (0 pt) Altered Elimination No (0 pt) Score/Fall Risk Level 0 - 2 = Low Risk Maintained a safe environment, Provided non-skid footwear, Hourly rounding (assess needs \T\ fall precautionary measures) done. Abuse screen: Denies threats or abuse. Nutritional screening: No deficits noted. Tuberculosis screening: No symptoms or risk factors identified. Assessment: 19:06 General: see triage assessment. al1 21:05 Reassessment: daughters left their numbers. Kirsty Kuhn [phone] and Ladan alMiranda Contreras [phone]. Vital Signs: 18:51 BP 131 / 55; Pulse 60; Resp 17; Temp 97.9; Pulse Ox 98% ; Weight 97 kg; Height 5 ft. 4 me1 in. ; Pain 0/10; 19:00 BP 117 / 51; Pulse 60; Resp 16; Pulse Ox 98% ; me1 20:00 BP 104 / 59; Pulse 67; Resp 19; Pulse Ox 97% ; me1 21:00 BP 138 / 55; Pulse 61; Resp 20; Pulse Ox 95% ; me1 22:00 BP 146 / 65; Pulse 65; Resp 17; Pulse Ox 97% ; me1 23:00 BP 116 / 98; Pulse 64; Resp 19; Pulse Ox 95% ; me1 18:51 Body Mass Index 36.71 (97.00 kg, 162.56 cm) me1 18:51 Pain Scale: Adult al1 ED Course: 18:47 Patient arrived in ED. me1 18:56 Salinas Madera MD is Attending Physician. [facility] 19:02 Triage completed. me1 19:02 Arm band placed on Patient placed in an exam room. me1 19:06 Patient has correct armband on for positive identification. Bed in low position. Call me1 light in reach. Side rails up X2. Provided Education on: POC. Verbalized understanding.. Client placed on continuous cardiac and pulse oximetry monitoring. NIBP monitoring applied. customer experience professional on. Pulse ox on. NIBP on. 19:06 No provider procedures requiring assistance completed. Maintain EMS IV. Dressing me1 intact. Good blood return noted. Site clean \T\ dry. Gauge \T\ site: 24g R hand. Flushed with 10 mL NS. 19:07 Sidra Trent, RN is Primary Nurse. me1 19:23 Initial lab(s) drawn, by me, sent to lab. First set of blood cultures drawn by me. me1 19:26 Basic Metabolic Panel Sent. me1 19:26 CBC with Diff Sent. me1 19:26 LFT's Sent. me1 19:26 Magnesium Sent. me1 19:26 NT PRO-BNP Sent. me1 19:26 PT-INR Sent. me1 19:26 Troponin HS Sent. me1 19:26 TSH Sent. me1 19:27 Lactate w/ 2H reflex if indic. Sent. me1 19:27 Blood Culture Adult (2) Sent. me1 19:27 Lipase Sent. me1 19:27 Inserted saline lock: 22 gauge in right antecubital area, using aseptic technique. me1 19:30 XRAY Chest (1 view) In Process Unspecified. EDMS 19:37 Second set of blood cultures drawn. me1 19:43 Head C Spine Mpr Wo Con In Process Unspecified. EDMS 19:43 Chest Abd Pelvis Wo Con In Process Unspecified. EDMS 20:07 EKG done, by library acquisitions technician. af3 20:07 Toussaint cath inserted, using sterile technique, 16 Fr., Patient tolerated well. af3 20:07 T4 Free Sent. me1 20:08 Inserted. me1 20:12 Attending Physician role handed off by Salinas Madera MD gb1 20:12 Angelia, Shilpa, MD is Attending Physician. gb1 20:50 Karla Johnson MD is Hospitalizing Provider. gb1 23:23 Patient admitted, IV remains in place. me1 Administered Medications: 20:42 Discontinued: ns 0.9% (30 ml/kg) 30 ml/kg IV at bolus once; Sepsis Protocol; to be me1 given as a bolus over 90 minutes 20:07 Drug: Famotidine IVP 20 mg IVP once; dilute with 10 mL 0.9% NaCl; give over 2 minutes me1 Route: IVP; Site: right antecubital; 20:41 Follow up: Response: No adverse reaction me1 20:08 Drug: Cefepime IVPB 1 grams IVPB at 200 ml/hr once over 30 mins; (mix in NS 100 mL) me1 Route: IVPB; Rate: 200 ml/hr; Infused Over: 30 mins; Site: right antecubital; 20:41 Follow up: Response: No adverse reaction; IV Status: Completed infusion me1 20:08 Drug: NS 0.9% IV (30 ml/kg) 30 ml/kg IV at bolus once; Sepsis Protocol; to be given as me1 a bolus over 90 minutes Route: IV; Rate: bolus; Site: right antecubital; 20:08 Drug: Solu-CORTEF IVP 100 mg IVP once Route: IVP; Site: right antecubital; me1 20:41 Follow up: Response: No adverse reaction me1 21:38 Drug: vancoMYCIN IVPB 20 mg/kg IVPB once; once over 2 hrs; not to exceed 2 grams; (mix me1 in 250 to 500 mL NS) Route: IVPB; Site: right antecubital; 23:24 Follow up: IV Status: Infusion continued upon admission me1 23:47 Follow up: Response: No adverse reaction; IV Status: Completed infusion; IV Intake: me1 500ml Medication: 19:06 VIS not applicable for this client. me1 Intake: 23:47 IV: 500ml; Total: 500ml. me1 Outcome: 20:51 Decision to Hospitalize by Provider. gb1 23:23 Admitted to Med/surg accompanied by tech, via stretcher, room 223, with chart, Report me1 called to faxed, receipt confirmed with [facility] 23:23 Condition: stable 23:23 Instructed on the need for admit, 01/03 00:26 Patient left the ED. rg5 Signatures: Dispatcher [employer] Salinas Salvador MD MD cha Eddleman, Michelle, RN RN me1 Shilpa Galan MD MD gb1 Vincent Mata RN RN rg5 Fabienne Gillis
--- NOTE | 2025-01-02 20:51 | EDPHYS ---
Physician Documentation [facility] Name: Arabella Chou Age: 79 yrs Sex: Female : 1945 Arrival Date: 01/02/2025 Time: 18:23 Bed 14 Private MD: ED Physician Shilpa Galan HPI: 01/02 21:14 This 79 yrs old Female presents to ER via EMS with complaints of Altered gb1 Mental Status. 21:15 Ms. Chou is a 79-year-old female with history of CHF, DVT and gb1 hypertension who was brought by her daughter and her granddaughter for altered mental status. Yesterday she told her daughter that it villalobos to pee and they called her primary care provider and she was placed on an antibiotic. They are unsure the name of the antibiotic. She took 1 dose. She was recently hospitalized for an incision and drained abscess and discharged home and since then has been declining.. Historical: - Allergies: 19:02 No Known Allergies; me1 - PMHx: 19:02 Congestive heart failure; Deep vein thrombosis; Hypertensive disorder; me1 - PSHx: 19:02 pacemaker; me1 - Immunization history:: Adult Immunizations up to date. - Infectious Disease History:: Denies. - Social history:: Smoking status: unknown. Exam: 21:15 Constitutional: This is a well developed, well nourished patient who is lethargic and gb1 in mild acute distress. She is not oriented to person, place or time. Head/Face: Normocephalic, atraumatic. Eyes: Pupils equal round and reactive to light, extra-ocular motions intact. Lids and lashes normal. Conjunctiva and sclera are non-icteric and not injected. Cornea within normal limits. Periorbital areas with no swelling, redness, or edema. ENT: Nares patent. No nasal discharge, no septal abnormalities noted. Tympanic membranes are normal and external auditory canals are clear. Oropharynx with no redness, swelling, or masses, exudates, or evidence of obstruction, uvula midline. Mucous membranes moist. Neck: Trachea midline, no thyromegaly or masses palpated, and no cervical lymphadenopathy. Supple, full range of motion without nuchal rigidity, or vertebral point tenderness. No Meningismus. Chest/axilla: Normal chest wall appearance and motion. Nontender with no deformity. No lesions are appreciated. Cardiovascular: Regular rate and rhythm with a normal S1 and S2. No gallops, murmurs, or rubs. Normal PMI, no JVD. No pulse deficits. Respiratory: Lungs have equal breath sounds decreased bilaterally with upper airway congestion, clear to auscultation and percussion. No rales, rhonchi or wheezes noted. No increased work of breathing, no retractions or nasal flaring. Abdomen/GI: Soft, non-tender, with normal bowel sounds. No distension or tympany. No guarding or rebound. No evidence of tenderness throughout. Back: No spinal tenderness. No costovertebral tenderness. Full range of motion. Skin: Warm, pale, dry with normal turgor. Normal color with no rashes, no lesions, and no evidence of cellulitis. Dry mucous membranes. She has a bandage to the left upper extremity secondary to a recent abscess that was incised and drained. MS/ Extremity: Pulses equal, no cyanosis. Neurovascular intact. Full, normal range of motion. Vital Signs: 18:51 BP 131 / 55; Pulse 60; Resp 17; Temp 97.9; Pulse Ox 98% ; Weight 97 kg; Height 5 ft. 4 me1 in. ; Pain 0/10; 19:00 BP 117 / 51; Pulse 60; Resp 16; Pulse Ox 98% ; me1 20:00 BP 104 / 59; Pulse 67; Resp 19; Pulse Ox 97% ; me1 21:00 BP 138 / 55; Pulse 61; Resp 20; Pulse Ox 95% ; me1 22:00 BP 146 / 65; Pulse 65; Resp 17; Pulse Ox 97% ; me1 23:00 BP 116 / 98; Pulse 64; Resp 19; Pulse Ox 95% ; me1 18:51 Body Mass Index 36.71 (97.00 kg, 162.56 cm) me1 18:51 Pain Scale: Adult me1 MDM: 18:56 Medical Screening Exam initiated nithin 21:15 Data reviewed: vital signs, nurses notes. ED course: 79-year-old female with history of gb1 CHF, DVT and hypertension is here with altered mental status likely secondary to UTI and bilateral pneumonia. She has been started on cefepime and I will add vancomycin. She did not get 30 cc/kg due to her history of CHF. At this time she is not actively septic. I have admitted her to the hospital under Dr. Jonhson's telemetry service. I updated family and the patient, and they are compliant with this plan of care.. 01/02 18:59 Order name: Basic Metabolic Panel; Complete Time: 20:21 [facility] 01/02 18:59 Order name: CBC with Diff [facility] 01/02 20:45 Interpretation: Abnormal. gb1 01/02 18:59 Order name: LFT's; Complete Time: 20:21 [facility] 01/02 18:59 Order name: Magnesium; Complete Time: 20:21 [facility] 01/02 18:59 Order name: NT PRO-BNP; Complete Time: 20:21 [facility] 01/02 18:59 Order name: PT-INR; Complete Time: 20:21 [facility] 01/02 18:59 Order name: Troponin HS; Complete Time: 20:21 [facility] 01/02 18:59 Order name: Lipase; Complete Time: 20:21 [facility] 01/02 18:59 Order name: Urinalysis w/ reflexes; Complete Time: 20:21 [facility] 01/02 18:59 Order name: Lactate w/ 2H reflex if indic.; Complete Time: 20:21 [facility] 01/02 18:59 Order name: Blood Culture Adult (2) [facility] 01/02 18:59 Order name: TSH; Complete Time: 20:21 [facility] 01/02 20:04 Order name: T4 Free; Complete Time: 20:21 [facility] 01/02 20:21 Order name: Urine Culture [facility] 01/02 22:30 Order name: CBC Smear Scan [facility] 01/02 22:46 Order name: Comprehensive Metabolic Panel [facility] 01/02 22:46 Order name: CBC with Automated Diff [facility] 01/02 22:46 Order name: CBC with Automated Diff [facility] 01/02 22:46 Order name: Lactate w/ 2H reflex if indic. [facility] 01/02 22:46 Order name: Lactate w/ 2H reflex if indic. [facility] 01/02 22:46 Order name: Lipid Profile [facility] 01/02 22:46 Order name: Lipid Profile [facility] 01/02 22:46 Order name: Troponin High Sensitivity [facility] 01/02 22:46 Order name: Troponin High Sensitivity [facility] 01/02 22:46 Order name: Troponin High Sensitivity [facility] 01/02 22:46 Order name: Troponin High Sensitivity [facility] 01/02 18:59 Order name: XRAY Chest (1 view); Complete Time: 20:21 [facility] 01/02 19:04 Order name: Head C Spine Mpr Wo Con; Complete Time: 20:21 [facility] 01/02 19:05 Order name: Chest Abd Pelvis Wo Con; Complete Time: 20:21 [facility] 01/02 18:59 Order name: Cardiac monitoring; Complete Time: 20:07 [facility] 01/02 18:59 Order name: EKG - Nurse/Tech; Complete Time: 20:07 [facility] 01/02 18:59 Order name: IV Saline Lock; Complete Time: 19:26 [facility] 01/02 18:59 Order name: Labs collected and sent; Complete Time: 19:26 [facility] 01/02 18:59 Order name: O2 Per Protocol; Complete Time: 19:26 [facility] 01/02 18:59 Order name: O2 Sat Monitoring; Complete Time: 19:26 [facility] 01/02 18:59 Order name: IV Saline Lock - Large Bore; Complete Time: 19:26 [facility] 01/02 18:59 Order name: Toussaint; Complete Time: 20:06 [facility] Administered Medications: 20:42 Discontinued: ns 0.9% (30 ml/kg) 30 ml/kg IV at bolus once; Sepsis Protocol; to be me1 given as a bolus over 90 minutes 20:07 Drug: Famotidine IVP 20 mg IVP once; dilute with 10 mL 0.9% NaCl; give over 2 minutes me1 Route: IVP; Site: right antecubital; 20:41 Follow up: Response: No adverse reaction me1 20:08 Drug: Cefepime IVPB 1 grams IVPB at 200 ml/hr once over 30 mins; (mix in NS 100 mL) me1 Route: IVPB; Rate: 200 ml/hr; Infused Over: 30 mins; Site: right antecubital; 20:41 Follow up: Response: No adverse reaction; IV Status: Completed infusion me1 20:08 Drug: NS 0.9% IV (30 ml/kg) 30 ml/kg IV at bolus once; Sepsis Protocol; to be given as me1 a bolus over 90 minutes Route: IV; Rate: bolus; Site: right antecubital; 20:08 Drug: Solu-CORTEF IVP 100 mg IVP once Route: IVP; Site: right antecubital; me1 20:41 Follow up: Response: No adverse reaction me1 21:38 Drug: vancoMYCIN IVPB 20 mg/kg IVPB once; once over 2 hrs; not to exceed 2 grams; (mix me1 in 250 to 500 mL NS) Route: IVPB; Site: right antecubital; 23:24 Follow up: IV Status: Infusion continued upon admission me1 23:47 Follow up: Response: No adverse reaction; IV Status: Completed infusion; IV Intake: me1 500ml Disposition Summary: 01/02/25 20:51 Hospitalization Ordered Notes: Hospitalization Status: Inpatient Admission gb1 Provider: Karla Johnson Location: Telemetry/MedSur (Inpatient) gb1 Condition: Fair gb1 Problem: new gb1 Symptoms: have worsened gb1 Bed/Room Type: [place] [address] Room Assignment: 211(01/02/25 23:09) [facility] Diagnosis - Lobar pneumonia, unspecified organism gb1 - UTI/ Urinary tract infection, site not specified gb1 Forms: - Medication Reconciliation Form gb1 - SBAR form gb1 - Leadership Thank You Letter gb1 Signatures: Dispatcher [employer] EDSalinas Carl MD MD cha Eddleman, Michelle, RN RN me1 Shilpa Galan MD MD gb1 Ginger Alexander [facility] Corrections: (The following items were deleted from the chart) 19:00 19:00 BASIC METABOLIC PANEL+C.LAB.BRZ ordered. EDMS EDMS 19:00 19:00 CBC+H.LAB.BRZ ordered. EDMS EDMS 19:00 19:00 HEPATIC FUNCTION+C.LAB.BRZ ordered. EDMS EDMS 19:00 19:00 MAGNESIUM+C.LAB.BRZ ordered. EDMS EDMS 19:00 19:00 PROBNP+C.LAB.BRZ ordered. EDMS EDMS 19:00 19:00 PROTIME (+INR)+COAG.LAB.BRZ ordered. EDMS EDMS 19:00 19:00 Troponin High Sensitivity+C.LAB.BRZ ordered. EDMS EDMS 19:00 19:00 LIPASE+C.LAB.BRZ ordered. EDMS EDMS 19:00 19:00 Urinalysis+U.LAB.BRZ ordered. EDMS EDMS 19:00 19:00 LACTATE+C.LAB.BRZ ordered. EDMS EDMS 19:00 19:00 BLOOD CULTURE*+BA.LAB.BRZ ordered. EDMS EDMS 19:00 19:00 THYROID STIMULAT HORMONE+C.LAB.BRZ ordered. EDMS EDMS :00 19:00 Head C Spine Cap Wo Con+CT.RAD.BRZ ordered. EDMS EDMS 23:09 20:51 gb1 kmf
[2025-01-02] MEDS ORDERED: VANCOMYCIN 1 GM/VIAL ONE (21:29)
[2025-01-02] MEDS ORDERED: NA CHLORIDE 0.9% 500 ML ONE (21:29)
[2025-01-02] MEDS ORDERED: ALBUTEROL 2.5 MG/3 ML NEB SOL NEB PRN (22:40)
--- NOTE | 2025-01-02 22:45 | P.HP ---
Patient History Date of Service: 01/03/25 Reason for admission: Generalized weakness History of Present Illness: 79-year-old female with a past medical history of atrial fibrillation, CHF, hypertension, anemia, presence of pacemaker, presenting with generalized weakness alongside altered mental status for the last several days. Spoke to patient's daughter over the phone who is stating that she is unable to eat or drink anything. She is waking up later and later in the day and is less arous able. Her last hospitalization was 10 days ago and since then she has been unable to stand or walk. During that last hospitalization her blood count was low and there was an abscess that was drained. The daughter states that her mother endorsed burning upon urination. They called her doctor who placed her on antibiotics however she was unable to complete the course. Allergies No Known Allergies Allergy (Verified 12/06/24 01:26) Home Medications: Fenofibrate,Micronized [Fenofibrate] 134 mg PO DAILY 12/06/24 Furosemide 40 mg PO BID 12/06/24 Levothyroxine Sodium 25 mcg PO DAILY 12/06/24 Metoprolol Tartrate 25 mg PO DAILY 12/06/24 Sildenafil Citrate 20 mg PO BID 12/06/24 Spironolactone 25 mg PO DAILY 12/06/24 Amox/Clavulanate [Augmentin 875-125 Tab*] 875 mg PO BID #20 tab 12/14/24 Docusate [Colace Cap*] 100 mg PO BID #14 cap 12/14/24 Furosemide [Lasix*] 40 mg PO DAILY #30 tab 12/14/24 Hydrocodone 5/APAP 325 [[place] 5/325*] 1 tab PO Q8HP PRN #20 tab 12/14/24 Melatonin [Melatonin*] 3 mg PO BEDTIME PRN PRN #20 tab 12/14/24 Polyethyl Gly 3350 [Glycolax*] 17 gm PO DAILY PRN #30 marco 12/14/24 Pantoprazole [Protonix Tab] 40 mg PO BID 20 Days #30 tab 12/23/24 - Past Medical/Surgical History Diabetic: No -: Afib on Eliquis -: CHF-chronic diastolic -: Htn -: DVT -: Hypothyroidism -: Pulmonary hypertension Psychosocial/ Personal History: Lives at home with her daughter - Family History Father -: Hypertension - Social History Alcohol use: No CD- Drugs: No Caffeine use: Yes Review of Systems is unable to be obtained Physical Examination - Physical Exam General: In no apparent distress HEENT: Atraumatic, Normocephalic Neck: Supple Respiratory: Clear to auscultation bilaterally Cardiovascular: Normal pulses Capillary refill: <2 Seconds Gastrointestinal: Normal bowel sounds Musculoskeletal: No clubbing Integumentary: Rash(es), Other (Hyperemic legs) Neurological: Normal strength at 5/5 x4 extr Lymphatics: No axilla or inguinal lymphadenopathy - Studies Laboratory Data (last 24 hrs) 01/02/25 01/02/25 01/02/25 19:23 19:23 19:23 WBC 5.60 Hgb 9.3 L Hct 28.3 L Plt Count 250 PT 14.7 H INR 1.31 Sodium 145 Potassium 3.7 BUN 21 H Creatinine 1.22 H Glucose 88 Magnesium 1.9 Total Bilirubin 0.3 AST 23 ALT 33 Alkaline Phosphatase 126 H Lipase 37 Assessment and Plan - Plan Acute metabolic encephalopathy Generalized weakness Urinary tract infection Pneumonia CHF Anemia Presence of pacemaker Hypothyroidism Admit to floor Chest x-ray reviewed, start Rocephin and azithromycin Urine and blood cultures pending Daily weights, strict I's and O's, sodium and fluid restriction PT / OT consult Continue home Lasix, metoprolol, and spironolactone Continue Synthroid, based upon TSH result need to increase dose Continue metoprolol and sildenafil DVT prophylaxis with SCDs - Advance Directives Does patient have a Living Will: Yes Does patient have a Durable POA for Healthcare: No
[2025-01-02 23:54] LABS: Anisocytosis SLIGHT; Blood Morphology Comment NOTED (NOT SEEN); Platelet Estimate ADEQ; White Blood Cell Scan OK (OK)
[2025-01-03 05:46] LABS: Absolute Lymphocytes (CBC) 0.8 K/uL (0.7-4.9); Absolute Monocytes 0.1 K/uL (0.1-1.3); Absolute Neutrophil 4.2 K/uL (1.8-8.0); Basophils % 0.6 % (0-1.3); Eosinophils % 0.1 % (0-4.4); Hematocrit 27.5 % (36.0-45.0); Hemoglobin 9.1 g/dL (12.0-15.0); Lymphocytes % 15.7 % (15.3-44.8); MCH 29.2 pg (27.0-35.0); MCHC 33.2 g/dL (32.0-36.0); MCV 87.9 fL (80-100); MPV 8.3 fL (7.6-11.3); Monocytes % 1.1 % (3.3-12.3); Neutrophils % 82.5 % (41.7-73.7); Nucleated Red Blood Cells % 0.3 % (0-0); Platelets 228 thou/uL (152-406); RBC Red Blood Cell Count 3.13 M/uL (3.86-4.86); Red Cell Distribution Width 19.9 % (12.1-15.2)
--- NOTE | 2025-01-03 07:50 | P.PN ---
Date of Service: 01/03/25 Subjective: Patient temp 93.1 oral, axillary was 91.2, and rectal was 93.6 this morning. otherwise asymptomatic. Vitals stable besides temp more awake/alert. Responding to verbal stimuli. The day before admission patient reported dysuria to family who called PCP and was prescribed abx Physical Exam: GEN: Alert, oriented1-2, NAD CV: Regular rate and rhythm, lower extremity edema Pulm: Nonlabored respirations on room air, clear bilaterally ABD: soft, nontender, nondistended Integumentary: bilateral erythema and swelling to lower extremities, sacral decubitus ulcer (photos in EMR), clean wound in left shoulder Neuro: Normal speech, normal affect Problem List: Acute metabolic encephalopathy Dysuria Sacral Decubitis ulcer Generalized Weakness, fatigue Recent Upper GI bleed (~2 weeks ago) 7x4 cm Colonic mass Duodenitis Mild SIRENA Chronic CHF Pulmonary hypertension Hypothyroidism Hx a-fib with presence of pacemaker Hx LLE DVT on chronic anticoagulation Hx Left shoulder abscess s/p I&D complicated by Enterococcus Faecalis Bacteremia (~4 weeks ago) Acute metabolic encephalopathy Dysuria Sacral Decubitis ulcer Generalized Weakness, fatigue Hx Left shoulder abscess s/p I&D complicated by Enterococcus Faecalis Bacteremia (~4 weeks ago) on admission, presents with generalized weakness, altered mentation, decreased intake over the last few days. +Dysuria per family. Family report patient is sleeping in more, and having a harder time waking patient up. Hasn't been able to stand/walk since last hospitalization. Recent hospitalization for right shoulder abscess s/p I&D / Enterococcus Faecalis bacteremia (12/05-12/14). She received IV unasyn/vanc while hospitalized and was dc'd with oral augmentin. The day before admission patient reported dysuria to family who called PCP and was prescribed abx. She only took 1 dose prior to admission per report. 01/02 - CT chest/abd negative for any acute findings. Noted mild liver cirrhosis, focal fat containing midlnie ventral and umbilical hernias, enlarged left para- aortic lymph node present measuring up to 15 mm. CXR with mild pulmonary edema. +patchy opacity in both lung bases may be chronic or related to mild infiltrate/pneumonia. 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 01/03 - Continue IV rocephin / Azithromycin Follow blood and urine cultures resume home lasix, spironolactone ID and Surgery consulted Recent Upper GI bleed (~2 weeks ago) 7x4 cm Colonic mass Duodenitis Recently hospitalized here for UGIB. (12/20-12/23) EGD 12/22 noted duodenitis Colonoscopy 12/22 noted non-obstructing mass 7x4cm in the cecum, multiple non- bleeding colonic polyps, multiple medium diverticula, multiple internal and external hemorrhoids. Was told to f/u with GI and to get PET scan, small bowel series as outpatient for further work up. Was told not to take eliquis or aspirin until otherwise instructed by Dr. Miller / PCP. Daily labs. Hgb improved compared to last hospitalization. Mild SIRENA continue to monitor renal function given IV fluids in ED. Chronic CHF Pulmonary hypertension Hypothyroidism Hx a-fib with presence of pacemaker Hx LLE DVT on chronic anticoagulation confirm home meds, restart as appropriate unclear if current edema is worse or same, no family at bedside this morning, will try to reach out to them, may need IV lasix VTE: SCDs Code: Full Dispo: 3-4 days Time Spent Managing Pts Care (In Minutes): 55
[2025-01-03] MEDS: AZITHROMYCIN IV 500 MG in NA CHLORIDE 0.9% 250 ML IVPB SCH (08:42)
[2025-01-03] MEDS: METOPROLOL TAR 25 MG TAB PO SCH (08:42)
[2025-01-03] MEDS: LEVOTHYROXINE SOD 0.025 MG TAB PO SCH (08:42)
[2025-01-03] MEDS: SPIRONOLACTONE 25 MG TABLET PO SCH (08:42)
[2025-01-03] MEDS: CEFTRIAXONE 1,000 MG in NA CHLORIDE 0.9% 50 ML IVPB SCH (08:42)
[2025-01-03] MEDS: FUROSEMIDE 40 MG TABLET PO SCH (08:43)
--- NOTE | 2025-01-03 12:35 | EKG ---
Test Date: 2025-01-02 Test Time: 19:48:48 Small Order Cutter: AF MEASUREMENT RESULTS: Intervals: Rate: 147 [place]: QRSD: 156 QT: 276 QTc: 431 [place]: P: LA: QRS: 149 T: 173 INTERPRETIVE STATEMENTS: Suspect arm lead reversal, interpretation assumes no reversal Paced rhythm Nonspecific intraventricular block Possible Lateral infarct, age undetermined Abnormal ECG Compared to ECG 12/05/2024 20:56:41 Myocardial infarct finding now present Atrial fibrillation no longer present T-wave abnormality no longer present Electronically Signed On 01-03-25 12:34:42 CDT by Naeem Pelayo
--- NOTE | 2025-01-03 23:13 | CON ---
Reason For Consultation: I was consulted to evaluate and manage antibiotic for pneumonia. History Of Present Illness: This is an 79-year-old female with significant past medical history of a trial fibrillation, congestive heart failure, hypertension, anemia, presence of pacemaker placement, coming in with generalized weakness and altered mental status for few days. Most of the history was obtained through medical records and staff, as the patient herself is not able to give good history. According to the notes, the patient was not eating and drinking and was having problem getting up. She was recently hospitalized 10 days ago and was unable to stand and walk. The patient denies any p roblems at this time. Past Medical History: As per HPI. Social History: Nonsmoker. Nondrinker. Family History: Noncontributory. Medications: Zithromax, Rocephin, vancomycin. See MARs for other medications. Allergies: NO KNOWN DRUG ALLERGIES. Review of Systems: Unable to obtain. Physical Examination: General: This is an 79-year-old female, lying in bed, not in any acute cardiopulmonary distress. Vital Signs: Temperature 97, pulse 69, respirations 18, blood pressure 134/58. HEENT: Unremarkable. Neck: Supple. Lungs: Basal crackles. Heart: S1, S2. Regular. Abdomen: Soft, nontender. Bowel sounds present. Extremities: Trace edema. Imaging: Chest x-ray shows mild interstitial pulmonary edema with patchy opacity in both lungs, grea ter on the left with possible infiltrate secondary to pneumonitis. CT abdomen, chest and pelvis show s no acute abnormalities. CT head shows no evidence of acute intracranial abnormalities. Laboratory Data: WBC 5.1, hemoglobin 9.1, platelets are 228. Urinalysis shows WBC more than 50 with RBC 11 to 20. BUN and creatinine, not available. Assessment And Plan: 1. This is an 79-year-old female coming in with altered mental status, possibly secondary to urosepsi s versus pneumonitis. Cultures are pending. The patient is currently on empiric antibiotics, Roceph in and Zithromax. Was also given vancomycin. Continue empiric treatment with Rocephin and Zithromax . 2. Pyuria. 3. Hematuria. 4. Anemia of chronic disease. Prognosis guarded. We will follow the patient as needed. Thank you, Dr. Marquez, for consult. NF/MODL Voice ID: [id number] Report ID: [id number]
[2025-01-04 07:38] LABS: Absolute Eosinophils 0.1 K/uL (0-0.5); Absolute Lymphocytes (CBC) 1.2 K/uL (0.7-4.9); Absolute Monocytes 0.5 K/uL (0.1-1.3); Basophils % 0.6 % (0-1.3); Eosinophils % 1.1 % (0-4.4); Hematocrit 25.7 % (36.0-45.0); Hemoglobin 8.4 g/dL (12.0-15.0); Lymphocytes % 20.6 % (15.3-44.8); MCH 28.2 pg (27.0-35.0); MCHC 32.6 g/dL (32.0-36.0); MCV 86.6 fL (80-100); MPV 7.7 fL (7.6-11.3); Monocytes % 8.3 % (3.3-12.3); Neutrophils % 69.4 % (41.7-73.7); Nucleated Red Blood Cells % 0.1 % (0-0); Platelets 289 thou/uL (152-406); RBC Red Blood Cell Count 2.97 M/uL (3.86-4.86); Red Cell Distribution Width 19.9 % (12.1-15.2)
[2025-01-04 07:56] LABS: Anion Gap 8.7 mEq/L (5.0-15.0); Magnesium 1.9 mg/dL (1.6-2.4); Potassium 3.7 mEq/L (3.5-5.1)
[2025-01-04] MEDS: ACETAMINOPHEN 500 MG TAB PO PRN (12:34)
--- NOTE | 2025-01-04 12:34 | P.PN ---
Date of Service: 01/04/25 Subjective: placed on bear hugger again overnight due to hypothermia - rectal temp 95.7 temperature improved this morning family updated vitals stable, Breathing okay on room air Physical Exam: GEN: Alert, oriented1-2, NAD CV: Regular rate and rhythm, b/l extremity edema Pulm: Nonlabored respirations on room air, clear bilaterally ABD: soft, nontender, nondistended Integumentary: bilateral erythema and swelling to lower extremities, sacral decubitus ulcer (photos in EMR), clean wound in left shoulder Problem List: Acute metabolic encephalopathy Dysuria Sacral Decubitis ulcer Generalized Weakness, fatigue Recent Upper GI bleed (~2 weeks ago) 7x4 cm Colonic mass Duodenitis Mild SIRENA Chronic CHF Pulmonary hypertension Hypothyroidism Hx a-fib with presence of pacemaker Hx LLE DVT on chronic anticoagulation Hx Left shoulder abscess s/p I&D complicated by Enterococcus Faecalis Bacteremia (~4 weeks ago) Acute metabolic encephalopathy Dysuria Sacral Decubitis ulcer Generalized Weakness, fatigue Hx Left shoulder abscess s/p I&D complicated by Enterococcus Faecalis Bacteremia (~4 weeks ago) on admission, presents with generalized weakness, altered mentation, decreased intake over the last few days. +Dysuria per family. Family report patient is sleeping in more, and having a harder time waking patient up. Hasn't been able to stand/walk since last hospitalization. Recent hospitalization for right shoulder abscess s/p I&D / Enterococcus Faecalis bacteremia (12/05-12/14). She received IV unasyn/vanc while hospitalized and was dc'd with oral augmentin. The day before admission patient reported dysuria to family who called PCP and was prescribed abx. She only took 1 dose prior to admission per report. 01/02 - CT chest/abd negative for any acute findings. Noted mild liver cirrhosis, focal fat containing midlnie ventral and umbilical hernias, enlarged left para- aortic lymph node present measuring up to 15 mm. CXR with mild pulmonary edema. +patchy opacity in both lung bases may be chronic or related to mild infiltrate/pneumonia. 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 01/03 - Follow blood and urine cultures resume home lasix, spironolactone ID and Surgery consulted Troponins negative x3. Lactic acid wnl 01/04 - Continue medical management for sacral ulcer. Continue local wound care per surgery. Instructions in EMR. Continue IV rocephin / Azithromycin (01/03-) pro-mikayla normal patient more somnolent this morning, didn't eat breakfast/lunch, monitor, may need IVF. b/l edema, does seem to need IV lasix suspect erythema more from edema and not b/l leg cellulitis, however will monitor closely, and should be covered by abx for now lasix in AM Recent Upper GI bleed (~2 weeks ago) 7x4 cm Colonic mass Duodenitis Recently hospitalized here for UGIB. (12/20-12/23) EGD 12/22 noted duodenitis Colonoscopy 12/22 noted non-obstructing mass 7x4cm in the cecum, multiple non- bleeding colonic polyps, multiple medium diverticula, multiple internal and external hemorrhoids. Was told to f/u with GI and to get PET scan, small bowel series as outpatient for further work up. Was told not to take eliquis or aspirin until otherwise instructed by Dr. Miller / PCP. Daily labs. Hgb improved compared to last hospitalization. Mild SIRENA continue to monitor renal function given IV fluids in ED. Chronic CHF Pulmonary hypertension Hypothyroidism Hx a-fib with presence of pacemaker Hx LLE DVT on chronic anticoagulation confirm home meds, restart as appropriate unclear if current edema is worse or same, no family at bedside this morning, will try to reach out to them, may need IV lasix VTE: SCDs Code: Full Dispo: 2-3 days Time Spent Managing Pts Care (In Minutes): 55
[2025-01-04] MEDS: COLLAGENASE 30 GM OINTMENT TOP SCH (12:35)
[2025-01-04] MEDS: D5 0.45 NS 1,000 ML IV SCH (17:39)
[2025-01-04] MEDS: LORazepam 2 MG/ML VIAL ONE (21:54)
[2025-01-04] MEDS: LORazepam 2 MG/ML VIAL IV ONE (21:56)
--- NOTE | 2025-01-04 23:59 | PN ---
Subjective: The patient lying in bed, somnolent, no new acute event as per staff. Objective: Vital Signs: Temperature 97, pulse 70, respiration 18, blood pressure 153/66. Lungs: Basal crackles. Heart: S1, S2. Regular. Abdomen: Soft, nontender. Bowel sounds present. Extremities: No edema. Laboratory Data: WBC 5.8, hemoglobin 8.4, platelets 289, BUN of 26, creatinine 1.3. Assessment And Plan: 1. Altered mental status secondary to pneumonitis versus urosepsis, currently on Rocephin and Zithrom ax. 2. Pyuria. 3. Hematuria. 4. Sacral decubitus. 5. Anemia of chronic disease. 6. Renal insufficiency. Continue current treatment for 7 days. Monitor signs of infection with WBC and fever trends. NF/MODL Voice ID: [id number] Report ID: [id number]
[2025-01-05 04:43] LABS: Hematocrit 26.3 % (36.0-45.0); Hemoglobin 8.6 g/dL (12.0-15.0); MCH 28.6 pg (27.0-35.0); MCHC 32.7 g/dL (32.0-36.0); MCV 87.5 fL (80-100); MPV 7.3 fL (7.6-11.3); Platelets 229 thou/uL (152-406)
[2025-01-05 04:54] LABS: Albumin 1.8 g/dL (3.4-5.0); Albumin/Globulin Ratio 0.5 (1.1-1.8); Anion Gap 7.3 mEq/L (5.0-15.0); Bilirubin Total 0.2 mg/dL (0.2-1.0); Globulin 3.4 g/dL (2.3-3.5); Potassium 3.3 mEq/L (3.5-5.1); Protein, Total 5.2 g/dL (6.4-8.2)
[2025-01-05] MEDS ORDERED: POTASSIUM CL 40 MEQ in NA CHLORIDE 0.9% 500 ML IV SCH (08:00)
[2025-01-05] MEDS: KCL 20 MEQ/100 mL IVPB 100 ML IV SCH (08:26)
[2025-01-05] MEDS: FUROSEMIDE 40 MG/4 ML VIAL IV SCH (08:27)
[2025-01-05] MEDS: SILDENAFIL CITRATE 20 MG TABLET PO SCH (08:27)
--- NOTE | 2025-01-05 12:02 | P.PN ---
Date of Service: 01/05/25 Subjective: more awake / alert today swelling ~same intake improving Physical Exam: GEN: Alert, oriented1-2, NAD CV: Regular rate and rhythm, b/l extremity edema Pulm: Nonlabored respirations on room air, clear bilaterally ABD: soft, nontender, nondistended Integumentary: bilateral erythema and swelling to lower extremities, sacral decubitus ulcer (photos in EMR), clean wound in left shoulder Problem List: Acute metabolic encephalopathy UTI - E. coli Sacral Decubitis ulcer Generalized Weakness, fatigue Recent Upper GI bleed (~2 weeks ago) 7x4 cm Colonic mass Duodenitis Mild SIRENA Chronic CHF Pulmonary hypertension Hypothyroidism Hx a-fib with presence of pacemaker Hx LLE DVT on chronic anticoagulation Hx Left shoulder abscess s/p I&D complicated by Enterococcus Faecalis Bacteremia (~4 weeks ago) Acute metabolic encephalopathy UTI - E. coli Sacral Decubitis ulcer Generalized Weakness, fatigue Hx Left shoulder abscess s/p I&D complicated by Enterococcus Faecalis Bacteremia (~4 weeks ago) on admission, presents with generalized weakness, altered mentation, decreased intake over the last few days. +Dysuria per family. Family report patient is sleeping in more, and having a harder time waking patient up. Hasn't been able to stand/walk since last hospitalization. Recent hospitalization for right shoulder abscess s/p I&D / Enterococcus Faecalis bacteremia (12/05-12/14). She received IV unasyn/vanc while hospitalized and was dc'd with oral augmentin. The day before admission patient reported dysuria to family who called PCP and was prescribed abx. She only took 1 dose prior to admission per report. 01/02 - CT chest/abd negative for any acute findings. Noted mild liver cirrhosis, focal fat containing midlnie ventral and umbilical hernias, enlarged left para- aortic lymph node present measuring up to 15 mm. CXR with mild pulmonary edema. +patchy opacity in both lung bases may be chronic or related to mild infiltrate/pneumonia. 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 01/03 - Follow blood and urine cultures resume home lasix, spironolactone ID and Surgery consulted Troponins negative x3. Lactic acid wnl 01/04 - Continue medical management for sacral ulcer. Continue local wound care per surgery. Instructions in EMR. Continue IV rocephin / Azithromycin (01/03-) pro-mikayla normal patient more somnolent this morning, didn't eat breakfast/lunch, monitor, may need IVF. b/l edema, does seem to need IV lasix suspect erythema more from edema and not b/l leg cellulitis, however will monitor closely, and should be covered by abx for now 01/05 - Urine growing E. coli, sensitive to rocephin dc azithromycin, continue IV rocephin (01/03-) PT/OT consult Start IV lasix 40 mg daily Recent Upper GI bleed (~2 weeks ago) 7x4 cm Colonic mass Duodenitis Recently hospitalized here for UGIB. (12/20-12/23) EGD 12/22 noted duodenitis Colonoscopy 12/22 noted non-obstructing mass 7x4cm in the cecum, multiple non- bleeding colonic polyps, multiple medium diverticula, multiple internal and external hemorrhoids. Was told to f/u with GI and to get PET scan, small bowel series as outpatient for further work up. Was told not to take eliquis or aspirin until otherwise instructed by Dr. Miller / PCP. Daily labs. Hgb improved compared to last hospitalization. resume home protonix Mild SIRENA continue to monitor renal function given IV fluids in ED. Chronic CHF Pulmonary hypertension Hypothyroidism Hx a-fib with presence of pacemaker Hx LLE DVT on chronic anticoagulation confirm home meds, restart as appropriate unclear if current edema is worse or same, no family at bedside this morning, will try to reach out to them, may need IV lasix continue home linwood, metoprolol, synthroid, sildenafil VTE: SCDs Code: Full Dispo: 2-3 days Time Spent Managing Pts Care (In Minutes): 55
--- NOTE | 2025-01-05 16:39 | P.PN ---
Subjective Date of Service: 01/05/25 Chief Complaint: Left arm, left shouder wounds , sacral pressure ulcer Subjective: Tolerating diet Review of Systems is unable to be obtained Physical Examination - Vital Signs Temperature: 97.4 F Blood Pressure: 153/59 Pulse: 68 Respirations: 16 Pulse Ox (%): 97 - Physical Exam General: Alert, In no apparent distress HEENT: PERRLA, EOMI Respiratory: Normal air movement Gastrointestinal: Soft and benign Integumentary: Pressure ulcer, Other (hx of arm abscess) - Studies Microbiology Data (last 24 hrs): 01/02/25 20:03 Clean Catch Urine [place] Count - Final >100,000 CFU/ML. 01/02/25 20:03 Clean Catch Urine - Final Escherichia Coli Assessment And Plan - Plan wound care orders written nutrition off loading
[2025-01-05] MEDS: ZINC OXIDE 20% OINTMENT 60gm TOP SCH (21:00)
--- NOTE | 2025-01-05 22:45 | P.PN ---
Date of Service: 01/05/25 Subjective: The patient lying in bed, somnolent, no new acute event as per staff. Objective: Vital Signs: Temp Pulse Resp BP Pulse Ox 98 F 64 18 166/62 H 97 01/05/25 20:00 01/05/25 20:00 01/05/25 20:00 01/05/25 20:00 01/05/25 20:00 neuro: confused Lungs: Basal crackles. Heart: S1, S2. Regular. Abdomen: Soft, nontender. Bowel sounds present. Extremities: No edema. culture 01/02 urine: e coli 01/02 blood: no growth in 24 hrs diagnostic 01/02: chest xray:Mild interstitial pulmonary edema seen. Patchy opacity in both lung bases, greater on the left may be chronic or related to mild infiltrate/pneumonia. The heart is moderately enlarged. No displaced fractures identified. Single-lead pacer device. 01/02: CT chest, abdomen and pelvis: acute abnormalities seen in the chest, abdomen or pelvis. Laboratory Data: WBC 6.1, hemoglobin 8.6, platelets 229, BUN of 27, creatinine 1.37 Assessment 1. Altered mental status secondary to pneumonitis versus urosepsis, currently on Rocephin. off off Zithromax. 2. Pyuria. 3. Hematuria. 4. Sacral decubitus ulcer 5. Anemia of chronic disease. 6. Renal insufficiency. Plan: Continue current treatment for 7 days. Monitor signs of infection with WBC and fever trends. continue would care and offloading CASE ROUND AND IN AGREEMENT WITH DR JORDAN
[2025-01-06 05:19] LABS: Hematocrit 26.3 % (36.0-45.0); Hemoglobin 8.7 g/dL (12.0-15.0); MCH 28.7 pg (27.0-35.0); MCHC 33.2 g/dL (32.0-36.0); MCV 86.5 fL (80-100); MPV 7.4 fL (7.6-11.3); Platelets 218 thou/uL (152-406); RBC Red Blood Cell Count 3.04 M/uL (3.86-4.86); Red Cell Distribution Width 19.6 % (12.1-15.2)
[2025-01-06] MEDS: NYSTATIN PWDR 100000 UNIT/GM TOP PRN (05:30)
[2025-01-06] MEDS: PANTOPRAZOLE 40MG TABLET PO SCH (05:41)
[2025-01-06 05:43] LABS: Albumin 1.9 g/dL (3.4-5.0); Albumin/Globulin Ratio 0.6 (1.1-1.8); Anion Gap 8.6 mEq/L (5.0-15.0); Bilirubin Total 0.3 mg/dL (0.2-1.0); Globulin 3.4 g/dL (2.3-3.5); Potassium 3.6 mEq/L (3.5-5.1); Protein, Total 5.3 g/dL (6.4-8.2)
[2025-01-06] MEDS: POTASSIUM 25 MEQ EFFERV TAB PO ONE (08:36)
--- NOTE | 2025-01-06 10:35 | P.PN ---
Date of Service: 01/06/25 Subjective: temperature down to 93 this morning, placed on gill hugger more awake, alert, and interactive today patient states she feels warm, flushed in face this has occurred ~3-4 times in last 2 hospitalizations here. although family initially state this seems to be new (temp being low), they did then say actually she has had gill hugger placed on several occasions in the recent past at other facilities too ~2.2L UOP in last 24 hours lower extremity swelling and erythema improving Family updated at bedside Physical Exam: GEN: Alert, oriented 2 (self/place), NAD; facial flushing CV: Regular rate and rhythm, b/l extremity edema Pulm: Nonlabored respirations on room air at rest, clear bilaterally ABD: soft, nontender, nondistended Integumentary: mild bilateral erythema and swelling to BLE, sacral decubitus ulcer (photos in EMR), clean wound in left shoulder Problem List: Acute metabolic encephalopathy UTI - E. coli Sacral Decubitis ulcer Generalized Weakness, fatigue Recent Upper GI bleed (~2 weeks ago) 7x4 cm Colonic mass Duodenitis Mild SIRENA, resolved Chronic CHF Pulmonary hypertension Hypothyroidism Hx a-fib with presence of pacemaker Hx LLE DVT on chronic anticoagulation Hx Left shoulder abscess s/p I&D complicated by Enterococcus Faecalis Bacteremia (~4 weeks ago) Acute metabolic encephalopathy UTI - E. coli Sacral Decubitis ulcer Generalized Weakness, fatigue Hx Left shoulder abscess s/p I&D complicated by Enterococcus Faecalis Bacteremia (~4 weeks ago) on admission, presents with generalized weakness, altered mentation, decreased intake over the last few days. +Dysuria per family. Family report patient is sleeping in more, and having a harder time waking patient up. Hasn't been able to stand/walk since last hospitalization. Recent hospitalization for right shoulder abscess s/p I&D / Enterococcus Faecalis bacteremia (12/05-12/14). She received IV unasyn/vanc while hospitalized and was dc'd with oral augmentin. The day before admission patient reported dysuria to family who called PCP and was prescribed abx. She only took 1 dose prior to admission per report. 01/02 - CT chest/abd negative for any acute findings. Noted mild liver cirrhosis, focal fat containing midlnie ventral and umbilical hernias, enlarged left para- aortic lymph node present measuring up to 15 mm. CXR with mild pulmonary edema. +patchy opacity in both lung bases may be chronic or related to mild infiltrate/pneumonia. 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 01/03 - Follow blood and urine cultures resume home lasix, spironolactone ID and Surgery consulted Troponins negative x3. Lactic acid wnl 01/04 - Continue medical management for sacral ulcer. Continue local wound care per surgery. Instructions in EMR. Continue IV rocephin / Azithromycin (01/03-) Thyroid studies and cortisol levels were normal patient more somnolent this morning, didn't eat breakfast/lunch, monitor, may need IVF. b/l edema, does seem to need IV lasix suspect erythema more from edema and not b/l leg cellulitis, however will monitor closely, and should be covered by abx for now 01/05 - Urine growing E. coli, sensitive to rocephin dc azithromycin, continue IV rocephin (01/03-) PT/OT consult Start IV lasix 40 mg daily 01/06 - More awake/alert/interactive. Lower extremity swelling and redness improving. seems secondary to edema, and not cellulitis Temperature continues to intermittently drop. Unknown etiology however seems to be ?chronic. Her temperature was noted to drop during prior hospitalizations. family report she has needed gill hugger before suspect some temperature/autonomic dysregulation secondary to infection / age - cortisol/TSH all WNL when checked 2 days ago repeat Lactic acid, pro-mikayla wnl. No leukocytosis. asymptomatic - or at least, just feeling warm and some facial flushing with temp at 94-95. Nothing worse, no hypotension, no bradycardia Continue diuresis for another day Recent Upper GI bleed (~2 weeks ago) 7x4 cm Colonic mass Duodenitis Recently hospitalized here for UGIB. (12/20-12/23) EGD 12/22 noted duodenitis Colonoscopy 12/22 noted non-obstructing mass 7x4cm in the cecum, multiple non- bleeding colonic polyps, multiple medium diverticula, multiple internal and external hemorrhoids. Was told to f/u with GI and to get PET scan, small bowel series as outpatient for further work up. Was told not to take eliquis or aspirin until otherwise instructed by Dr. Miller / PCP. Daily labs. Hgb improved compared to last hospitalization. 01/06 - resume home protonix Mild SIRENA, resolved continue to monitor renal function given IV fluids in ED. improved Chronic CHF Pulmonary hypertension Hypothyroidism Hx a-fib with presence of pacemaker Hx LLE DVT on chronic anticoagulation confirm home meds, restart as appropriate continue home linwood, metoprolol, synthroid, sildenafil VTE: SCDs Code: Full Dispo: 2-3 days Family updated at bedside 01/06 Time Spent Managing Pts Care (In Minutes): 55
[2025-01-07 05:37] LABS: Anion Gap 8.7 mEq/L (5.0-15.0); Magnesium 1.9 mg/dL (1.6-2.4); Potassium 3.7 mEq/L (3.5-5.1)
--- NOTE | 2025-01-07 09:09 | P.PN ---
Date of Service: 01/07/25 Subjective: continues with some intermittent 96 temps overnight lower extremity redness and swelling improving daily had BM per chart sacral dressings changed Physical Exam: GEN: Alert, oriented 2 (self/place), NAD CV: Regular rate and rhythm, b/l extremity edema Pulm: Nonlabored respirations on room air at rest, clear bilaterally ABD: soft, nontender, nondistended Integumentary: mild bilateral erythema and swelling to BLE, sacral decubitus ulcer with dressing in place, clean wound in left shoulder Problem List: Acute metabolic encephalopathy UTI - E. coli Sacral Decubitis ulcer Generalized Weakness, fatigue Recent Upper GI bleed (~2 weeks ago) 7x4 cm Colonic mass Duodenitis Mild SIRENA, resolved Chronic CHF Pulmonary hypertension Hypothyroidism Hx a-fib with presence of pacemaker Hx LLE DVT on chronic anticoagulation Hx Left shoulder abscess s/p I&D complicated by Enterococcus Faecalis Bacteremia (~4 weeks ago) Acute metabolic encephalopathy UTI - E. coli Sacral Decubitis ulcer Generalized Weakness, fatigue Hx Left shoulder abscess s/p I&D complicated by Enterococcus Faecalis Bacteremia (~4 weeks ago) on admission, presents with generalized weakness, altered mentation, decreased intake over the last few days. +Dysuria per family. Family report patient is sleeping in more, and having a harder time waking patient up. Hasn't been able to stand/walk since last hospitalization. Recent hospitalization for right shoulder abscess s/p I&D / Enterococcus Faecalis bacteremia (12/05-12/14). She received IV unasyn/vanc while hospitalized and was dc'd with oral augmentin. The day before admission patient reported dysuria to family who called PCP and was prescribed abx. She only took 1 dose prior to admission per report. 01/02 - CT chest/abd negative for any acute findings. Noted mild liver cirrhosis, focal fat containing midlnie ventral and umbilical hernias, enlarged left para- aortic lymph node present measuring up to 15 mm. CXR with mild pulmonary edema. +patchy opacity in both lung bases may be chronic or related to mild infiltrate/pneumonia. 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 01/03 - Follow blood and urine cultures resume home lasix, spironolactone ID and Surgery consulted Troponins negative x3. Lactic acid wnl 01/04 - Continue medical management for sacral ulcer. Continue local wound care per surgery. Instructions in EMR. Continue IV rocephin / Azithromycin (01/03-) Thyroid studies and cortisol levels were normal patient more somnolent this morning, didn't eat breakfast/lunch, monitor, may need IVF. b/l edema, does seem to need IV lasix suspect erythema more from edema and not b/l leg cellulitis, however will monitor closely, and should be covered by abx for now 01/05 - Urine growing E. coli, sensitive to rocephin dc azithromycin, continue IV rocephin (01/03-) PT/OT consult Start IV lasix 40 mg daily 01/06 - More awake/alert/interactive. Lower extremity swelling and redness improving. seems secondary to edema, and not cellulitis Temperature continues to intermittently drop. Unknown etiology however seems to be ?chronic. Her temperature was noted to drop during prior hospitalizations. family report she has needed gill hugger before suspect some temperature/autonomic dysregulation secondary to infection / age - cortisol/TSH all WNL when checked 2 days ago repeat Lactic acid, pro-mikayla wnl. No leukocytosis. asymptomatic - or at least, just feeling warm and some facial flushing with temp at 94-95. Nothing worse, no hypotension, no bradycardia Continue diuresis for another day 01/07 - Temps more stable. Normalized yesterday afternoon with Gill hugger. +Few 96 readings overnight. Lower extremity swelling and erythema improving. Had sacral dressings changed had BM x1 Recent Upper GI bleed (~2 weeks ago) 7x4 cm Colonic mass Duodenitis Recently hospitalized here for UGIB. (12/20-12/23) EGD 12/22 noted duodenitis Colonoscopy 12/22 noted non-obstructing mass 7x4cm in the cecum, multiple non- bleeding colonic polyps, multiple medium diverticula, multiple internal and external hemorrhoids. Was told to f/u with GI and to get PET scan, small bowel series as outpatient for further work up. Was told not to take eliquis or aspirin until otherwise instructed by Dr. Miller / PCP. Daily labs. Hgb improved compared to last hospitalization. 01/06 - resume home protonix Mild SIRENA, resolved continue to monitor renal function given IV fluids in ED. improved Chronic CHF Pulmonary hypertension Hypothyroidism Hx a-fib with presence of pacemaker Hx LLE DVT on chronic anticoagulation confirm home meds, restart as appropriate continue home linwood, metoprolol, synthroid, sildenafil VTE: SCDs Code: Full Dispo: ~2 days Family updated at bedside 01/06 Time Spent Managing Pts Care (In Minutes): 55
[2025-01-07] MEDS: POTASSIUM 25 MEQ EFFERV TAB PO ONE (10:00)
[2025-01-08 06:15] LABS: Anion Gap 8.7 mEq/L (5.0-15.0); Potassium 3.7 mEq/L (3.5-5.1)
[2025-01-08] MEDS: CEFTRIAXONE 1,000 MG in NA CHLORIDE 0.9% 50 ML IVPB SCH (08:39)
[2025-01-08] MEDS: POTASSIUM 25 MEQ EFFERV TAB PO ONE (08:39)
--- NOTE | 2025-01-08 10:53 | P.PN ---
Date of Service: 01/08/25 Subjective: lower extremity swelling and redness improving daily more awake/alert. mentation improving per family family updated at bedside no new / worsening problems temps wnl last 24 hours Physical Exam: GEN: Alert, oriented 2 (self/place), NAD CV: Regular rate and rhythm, b/l extremity edema Pulm: Nonlabored respirations on room air at rest, clear bilaterally ABD: soft, nontender, nondistended Integumentary: minimal bilateral erythema and swelling to BLE, sacral decubitus ulcer with dressing in place Problem List: Acute metabolic encephalopathy UTI - E. coli Sacral Decubitis ulcer Generalized Weakness, fatigue Recent Upper GI bleed (~2 weeks ago) 7x4 cm Colonic mass Duodenitis Mild SIRENA, resolved Chronic CHF Pulmonary hypertension Hypothyroidism Hx a-fib with presence of pacemaker Hx LLE DVT on chronic anticoagulation Hx Left shoulder abscess s/p I&D complicated by Enterococcus Faecalis Bacteremia (~4 weeks ago) Acute metabolic encephalopathy UTI - E. coli Sacral Decubitis ulcer Generalized Weakness, fatigue Hx Left shoulder abscess s/p I&D complicated by Enterococcus Faecalis Bacteremia (~4 weeks ago) on admission, presents with generalized weakness, altered mentation, decreased intake over the last few days. +Dysuria per family. Family report patient is sleeping in more, and having a harder time waking patient up. Hasn't been able to stand/walk since last hospitalization. Recent hospitalization for right shoulder abscess s/p I&D / Enterococcus Faecalis bacteremia (12/05-12/14). She received IV unasyn/vanc while hospitalized and was dc'd with oral augmentin. The day before admission patient reported dysuria to family who called PCP and was prescribed abx. She only took 1 dose prior to admission per report. 01/02 - CT chest/abd negative for any acute findings. Noted mild liver cirrhosis, focal fat containing midlnie ventral and umbilical hernias, enlarged left para- aortic lymph node present measuring up to 15 mm. CXR with mild pulmonary edema. +patchy opacity in both lung bases may be ch ronic or related to mild infiltrate/pneumonia. 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 01/03 - Follow blood and urine cultures resume home lasix, spironolactone ID and Surgery consulted Troponins negative x3. Lactic acid wnl 01/04 - Continue medical management for sacral ulcer. Continue local wound care per surgery. Instructions in EMR. Continue IV rocephin / Azithromycin (01/03-) Thyroid studies and cortisol levels were normal patient more somnolent this morning, didn't eat breakfast/lunch, monitor, may need IVF. b/l edema, does seem to need IV lasix suspect erythema more from edema and not b/l leg cellulitis, however will monitor closely, and should be covered by abx for now 01/05 - Urine growing E. coli, sensitive to rocephin dc azithromycin, continue IV rocephin (01/03-) PT/OT consult Start IV lasix 40 mg daily 01/06 - More awake/alert/interactive. Lower extremity swelling and redness improving. seems secondary to edema, and not cellulitis Temperature continues to intermittently drop. Unknown etiology however seems to be ?chronic. Her temperature was noted to drop during prior hospitalizations. family report she has needed gill hugger before suspect some temperature/autonomic dysregulation secondary to infection / age - cortisol/TSH all WNL when checked 2 days ago repeat Lactic acid, pro-mikayla wnl. No leukocytosis. asymptomatic - or at least, just feeling warm and some facial flushing with temp at 94-95. Nothing worse, no hypotension, no bradycardia Continue diuresis for another day 01/07 - Temps more stable. Normalized yesterday afternoon with Gill hugger. +Few 96 readings overnight. Lower extremity swelling and erythema improving. Had sacral dressings changed had BM x1 01/08 - lower extremity swelling and redness improving daily more awake/alert. mentation improving per family Continue IV lasix for 1 more day; transition to oral tomorrow Continue IV rocephin. Day 5 of abx. DC white Recent Upper GI bleed (~2 weeks ago) 7x4 cm Colonic mass Duodenitis Recently hospitalized here for UGIB. (12/20-12/23) EGD 12/22 noted duodenitis Colonoscopy 12/22 noted non-obstructing mass 7x4cm in the cecum, multiple non- bleeding colonic polyps, multiple medium diverticula, multiple internal and external hemorrhoids. Was told to f/u with GI and to get PET scan, small bowel series as outpatient for further work up. Was told not to take eliquis or aspirin until otherwise instructed by Dr. Miller / PCP. Daily labs. Hgb improved compared to last hospitalization. 01/06 - resume home protonix Mild SIRENA, resolved continue to monitor renal function given IV fluids in ED. improved Chronic CHF Pulmonary hypertension Hypothyroidism Hx a-fib with presence of pacemaker Hx LLE DVT on chronic anticoagulation confirm home meds, restart as appropriate continue home linwood, metoprolol, synthroid, sildenafil VTE: SCDs Code: Full Dispo: ~1 day Family updated at bedside 01/08 Time Spent Managing Pts Care (In Minutes): 55
--- NOTE | 2025-01-08 12:20 | EKG ---
Test Date: 2025-01-04 Test Time: 19:05:03 [employer] Operator: [id number] MEASUREMENT RESULTS: Intervals: Rate: 161 ME: 60 QRSD: 34 QT: 190 QTc: 310 [place]: P: ME: 60 QRS: 209 T: 176 INTERPRETIVE STATEMENTS: Suspect arm lead reversal, interpretation assumes no reversal Demand pacemaker, interpretation is based on intrinsic rhythm Sinus tachycardia with short ME with premature supraventricular complexes with frequent and consecutive premature ventricular c Low voltage QRS Septal infarct, age undetermined Lateral infarct, age undetermined Inferior infarct, age undetermined Abnormal ECG Compared to ECG 01/02/2025 19:48:48 Atrial premature complex(es) now present Ventricular premature complex(es) now present Short ME interval now present Low QRS voltage now present Myocardial infarct finding still present Electronically Signed On 01-08-25 12:11:07 CDT by Naeem Pelayo
--- NOTE | 2025-01-08 17:16 | P.PN ---
Date of Service: 01/08/25 Subjective: The patient lying in bed, appears more awake today. no new acute event as per staff. Objective: Vital Signs: Temp Pulse Resp BP Pulse Ox 97.3 F 63 16 139/62 95 01/08/25 08:00 01/08/25 12:00 01/08/25 12:00 01/08/25 12:00 01/08/25 12:00 neuro: aox 2-3 Lungs: CTA Heart: S1, S2. Regular. Abdomen: Soft, nontender. Bowel sounds present. Extremities: No edema. culture 01/02 urine: e coli 01/02 blood: no growth in 24 hrs diagnostic 01/02: chest xray:Mild interstitial pulmonary edema seen. Patchy opacity in both lung bases, greater on the left may be chronic or related to mild infiltrate/pneumonia. The heart is moderately enlarged. No displaced fractures identified. Single-lead pacer device. 01/02: CT chest, abdomen and pelvis: acute abnormalities seen in the chest, abdomen or pelvis. Laboratory Data: WBC 4.8, hemoglobin 8.7, platelets 218, BUN of 14, creatinine 1.09 Assessment 1. Altered mental status secondary to pneumonitis versus urosepsis, currently on Rocephin. off of Zithromax. 2. Pyuria. 3. Hematuria. 4. Sacral decubitus ulcer 5. Anemia of chronic disease. 6. Renal insufficiency. Plan: Continue Rocephin treatment for 7 days. Monitor signs of infection with WBC and fever trends. Can switch to macrobid 100 mg PO BID x [address] Marquez and he is in agreement with plan of care continue would care and offloading CASE ROUND AND IN AGREEMENT WITH DR JORDAN
[2025-01-09 06:04] LABS: Anion Gap 7.3 mEq/L (5.0-15.0); Potassium 3.3 mEq/L (3.5-5.1)
[2025-01-09] MEDS: POTASSIUM CL SA 10 MEQ TAB PO ONE (09:36)
[2025-01-09] MEDS: ACETAMINOPHEN 500 MG TAB PO PRN (15:06)
--- NOTE | 2025-01-09 17:38 | P.PN ---
Subjective Date of Service: 01/09/25 Chief Complaint: Left arm, left shouder wounds , sacral pressure ulcer Patient states she feels much better and desires to go home. No issues overnight. She has been afebrile. She is tolerating diet. Physical Examination - Vital Signs Temperature: 97.1 F Blood Pressure: 154/70 Pulse: 62 Respirations: 16 Pulse Ox (%): 97 Assessment And Plan - Plan Physical Exam: GEN: Alert, oriented x 2 ,NAD CV: Regular rate and rhythm, b/l extremity edema improved Pulm: clear bilaterally, adequate breath sounds bilaterally. ABD: soft, nontender, nondistended Integumentary: minimal bilateral erythema, sacral decubitus ulcer with dressing in place Problem List: Acute metabolic encephalopathy UTI - E. coli Sacral Decubitis ulcer Generalized Weakness, fatigue Recent Upper GI bleed (~2 weeks ago) 7x4 cm Colonic mass Duodenitis Mild SIRENA, resolved Chronic CHF Pulmonary hypertension Hypothyroidism Hx a-fib with presence of pacemaker Hx LLE DVT on chronic anticoagulation Hx Left shoulder abscess s/p I&D complicated by Enterococcus Faecalis Bacteremia (~4 weeks ago) Acute metabolic encephalopathy UTI - E. coli Sacral Decubitis ulcer Generalized Weakness, fatigue Hx Left shoulder abscess s/p I&D complicated by Enterococcus Faecalis Bacteremia (~4 weeks ago) on admission, presents with generalized weakness, altered mentation, decreased intake and somnolence Recent hospitalization for right shoulder abscess s/p I&D / Enterococcus Faecalis bacteremia (12/05-12/14). She received IV unasyn/vanc while hospitalized and was dc'd with oral augmentin. Blood cultures: No growth to date. Urine culture: E. coli Status post IV cefepime and vancomycin. Patient is currently on IV Rocephin Infectious disease Dr. Tovar consulted. Local wound care for sacral decubitus ulcer. AMS resolved PT to reevaluate patient and increase activity as tolerated. Lower extremity erythema secondary to venous stasis. Patient received IV Lasix. Transition IV Lasix to home dose oral Lasix today as serum creatinine has started trending up. Recent Upper GI bleed 7x4 cm Colonic mass Duodenitis Recently hospitalized here for UGIB. (12/20-12/23) EGD 12/22 noted duodenitis Colonoscopy 12/22 noted non-obstructing mass 7x4cm in the cecum, multiple non- bleeding colonic polyps, multiple medium diverticula, multiple internal and external hemorrhoids. Was told to f/u with GI and to get PET scan, small bowel series as outpatient for further work up. Was told not to take eliquis or aspirin until otherwise instructed by Dr. Miller / PCP. Daily labs. Hgb improved compared to last hospitalization. 01/06 - resume home protonix Mild SIRENA, resolved continue to monitor renal function Chronic CHF Pulmonary hypertension Hypothyroidism Hx a-fib with presence of pacemaker Hx LLE DVT on chronic anticoagulation continue home spironolactone, metoprolol, synthroid, sildenafil VTE: SCDs Code: Full Dispo: Home with home health
[2025-01-09 22:03] VITALS: O2SAT 87
--- NOTE | 2025-01-09 23:48 | PN ---
Subjective: The patient is lying in bed. No new acute event. Chart reviewed. Objective: Vital Signs: Temperature 97, pulse 62, respirations 16, blood pressure 154/70. Lungs: Basal crackles. Heart: S1, S2. Regular. Abdomen: Soft, nontender. Bowel sounds present. Laboratory Data: Reviewed. Assessment And Plan: 1. Urinary tract infection secondary to Escherichia coli. 2. Metabolic encephalopathy. 3. Sacral decubitus ulcer. Continue wound care and supportive care. Currently, on Rocephin for urin yenifer tract infection and pneumonitis. 4. Pyuria. 5. Hematuria. 6. Anemia of chronic disease. Continue supportive care. We will follow the patient as needed. NF/MODL Voice ID: [id number] Report ID: [id number]
[2025-01-10 04:24] VITALS: BMI 33.0
[2025-01-10 06:07] LABS: Absolute Basophils 0.1 K/uL (0-0.5); Absolute Eosinophils 0.2 K/uL (0-0.5); Absolute Lymphocytes (CBC) 1.3 K/uL (0.7-4.9); Absolute Monocytes 0.7 K/uL (0.1-1.3); Absolute Neutrophil 5.6 K/uL (1.8-8.0); Basophils % 0.9 % (0-1.3); Eosinophils % 3.1 % (0-4.4); Hematocrit 28.6 % (36.0-45.0); Hemoglobin 9.6 g/dL (12.0-15.0); Lymphocytes % 16.7 % (15.3-44.8); MCH 28.9 pg (27.0-35.0); MCHC 33.7 g/dL (32.0-36.0); MCV 85.6 fL (80-100); MPV 7.9 fL (7.6-11.3); Monocytes % 8.3 % (3.3-12.3); Platelets 159 thou/uL (152-406); RBC Red Blood Cell Count 3.34 M/uL (3.86-4.86); Red Cell Distribution Width 18.5 % (12.1-15.2)
[2025-01-10 06:30] LABS: Anion Gap 5.5 mEq/L (5.0-15.0); Potassium 3.5 mEq/L (3.5-5.1)
[2025-01-10] MEDS: POTASSIUM CL SA 10 MEQ TAB PO ONE (09:45)
[2025-01-10] MEDS: ONDANSETRON 4 MG/2 ML VIAL IV PRN (09:57)
--- NOTE | 2025-01-10 11:21 | P.DS ---
Admission Date: 01/02/25 Discharge Date: 01/10/25 Disposition: DC HOME/HOME HEALTH CARE Reason for Admission: Left arm, left shouder wounds , sacral pressure ulcer Hospital Course: Problem List: Acute metabolic encephalopathy UTI - E. coli Sacral Decubitis ulcer Generalized Weakness, fatigue Recent Upper GI bleed (~2 weeks ago) 7x4 cm Colonic mass Duodenitis Mild SIRENA, resolved Chronic CHF Pulmonary hypertension Hypothyroidism Hx a-fib with presence of pacemaker Hx LLE DVT on chronic anticoagulation Hx Left shoulder abscess s/p I&D complicated by Enterococcus Faecalis Bacteremia (~4 weeks ago) Patient presented with generalized weakness, altered mentation, decreased intake and somnolence Recent hospitalization for right shoulder abscess s/p I&D / Enterococcus Faecalis bacteremia (12/05-12/14). She received IV unasyn/vanc while hospitalized and was discharged with oral augmentin. Blood cultures: No growth to date. Urine culture: E. coli Patient treated with IV cefepime and vancomycin and transitioned to IV Rocephin Patient received at least 1 week of IV antibiotics Infectious disease Dr. Tovar evaluated patient. Local wound care for sacral decubitus ulcer recommended by surgeon Dr. Parra. Altered mental status resolved. Patient was evalauted by PT and was able to stand with moderate assistance which was an improvement from the initial PT evlaution when she required maximum assistance. Lower extremity erythema secondary to venous stasis improved with IV lasix IV Lasix transitioned to home dose oral Lasix 40 mg daily. Recent Upper GI bleed 7x4 cm Colonic mass Duodenitis Recently hospitalized here for Upper GI bleed Endoscopy done on 12/22 showed duodenitis Colonoscopy on 12/22 showed non-obstructing mass 7x4cm in the cecum, multiple non-bleeding colonic polyps, multiple medium diverticula, multiple internal and external hemorrhoids. Patient need to follow with GI and to get PET scan, small bowel series as outpatient for further work up. Patient was told not to take eliquis or aspirin until otherwise instructed by her jewel supervisor Patient is on protonix which was continued during the hospital stay. continue other home medications-spironolactone, metoprolol, synthroid, sildenafil. Patient prescribed oral levaquin and Doxycycline to cover any infection in her sacral wound. Home health for PT and senior living ordered. Vital Signs/Physical Exam: Temp Pulse Resp BP Pulse Ox 97.8 F 61 16 141/79 H 98 01/10/25 08:00 01/10/25 09:45 01/10/25 08:00 01/10/25 09:45 01/10/25 08:00 General: Alert, In no apparent distress, Oriented x3 HEENT: Mucous membr. moist/pink Neck: JVD not distended Respiratory: Clear to auscultation bilaterally, Normal air movement Cardiovascular: Regular rate/rhythm, Edema (Bilateral edema significantly improved) Gastrointestinal: Soft and benign, Non-distended, No tenderness Musculoskeletal: No tenderness Integumentary: No cyanosis Neurological: Normal speech, Normal strength at 5/5 x4 extr Laboratory Data at Discharge: WBC 7.90 thou/uL (4.3-10.9) 01/10/25 05:45 Hgb 9.6 g/dL (12.0-15.0) L 01/10/25 05:45 Hct 28.6 % (36.0-45.0) L 01/10/25 05:45 Plt Count 159 thou/uL (152-406) 01/10/25 05:45 PT 14.7 SECONDS (10-13.0) H 01/02/25 19:23 INR 1.31 01/02/25 19:23 Sodium 140 mEq/L (136-145) 01/10/25 05:45 Potassium 3.5 mEq/L (3.5-5.1) 01/10/25 05:45 BUN 13 mg/dL (7-18) 01/10/25 05:45 Creatinine 1.04 mg/dL (0.55-1.02) H 01/10/25 05:45 Glucose 111 mg/dL (74-106) H 01/10/25 05:45 Magnesium 1.9 mg/dL (1.6-2.4) 01/07/25 04:52 Total Bilirubin 0.3 mg/dL (0.2-1.0) 01/06/25 04:56 AST 20 U/L (15-37) 01/06/25 04:56 ALT 30 U/L (13-56) 01/06/25 04:56 Alkaline Phosphatase 114 U/L (45-117) 01/06/25 04:56 Triglycerides 54 mg/dL (<150) 01/03/25 05:25 Cholesterol 86 mg/dL (<200) 01/03/25 05:25 HDL Cholesterol 40 mg/dL (40-60) 01/03/25 05:25 Cholesterol/HDL Ratio 2.15 01/03/25 05:25 Lipase 37 U/L (13-75) 01/02/25 19:23 Home Medications: Fenofibrate,Micronized [Fenofibrate] 134 mg PO DAILY 12/06/24 Levothyroxine Sodium 25 mcg PO DAILY 12/06/24 Metoprolol Tartrate 25 mg PO DAILY 12/06/24 Sildenafil Citrate 20 mg PO BID 12/06/24 Spironolactone 25 mg PO DAILY 12/06/24 Furosemide [Lasix*] 40 mg PO DAILY #30 tab 12/14/24 Collagenase [Santyl Ointment*] 1 appl TOP DAILY #30 gm 01/10/25 Doxycycline Hyclate 100 mg PO BID #14 cap 01/10/25 Hydrocodone 5/APAP 325 [[place] 5/325] 1 tab PO Q6H PRN #15 tab 01/10/25 Nystatin Powder [Mycostatin (Powder)*] 1 appl TOP DAILY PRN #1 bottle 01/10/25 Pantoprazole [Protonix Tab*] 40 mg PO DAILYAC #30 tab 01/10/25 Zinc Oxide [Zinc Oxide 20%*] 1 appl TOP BID #1 tube 01/10/25 levoFLOXacin [Levaquin] 750 mg PO DAILY #7 tab 01/10/25 New Medications: Doxycycline Hyclate 100 mg PO BID #14 cap levoFLOXacin [Levaquin] 750 mg PO DAILY #7 tab Nystatin Powder [Mycostatin (Powder)*] 1 appl TOP DAILY PRN #1 bottle PRN Reason: Rash Hydrocodone 5/APAP 325 [[place] 5/325] 1 tab PO Q6H PRN #15 tab PRN Reason: Pain Pantoprazole [Protonix Tab*] 40 mg PO DAILYAC #30 tab Collagenase [Santyl Ointment*] 1 appl TOP DAILY #30 gm Zinc Oxide [Zinc Oxide 20%*] 1 appl TOP BID #1 tube Physician Discharge Instructions: Patient presented with generalized weakness, altered mentation, decreased intake and somnolence Recent hospitalization for right shoulder abscess s/p I&D / Enterococcus Faecalis bacteremia (12/05-12/14). She received IV unasyn/vanc while hospitalized and was discharged with oral augmentin. Blood cultures: No growth to date. Urine culture: E. coli Patient treated with IV cefepime and vancomycin and transitioned to IV Rocephin Patient received at least 1 week of IV antibiotics Infectious disease Dr. Tovar evaluated patient. Local wound care for sacral decubitus ulcer recommended by surgeon Dr. Parra. Altered mental status resolved. Patient was evalauted by PT and was able to stand with moderate assistance which was an improvement from the initial PT evlaution when she required maximum assistance. Lower extremity erythema secondary to venous stasis improved with IV lasix IV Lasix transitioned to home dose oral Lasix 40 mg daily. Recent Upper GI bleed 7x4 cm Colonic mass Duodenitis Recently hospitalized here for Upper GI bleed Endoscopy done on 12/22 showed duodenitis Colonoscopy on 12/22 showed non-obstructing mass 7x4cm in the cecum, multiple non-bleeding colonic polyps, multiple medium diverticula, multiple internal and external hemorrhoids. Patient need to follow with GI and to get PET scan, small bowel series as outpatient for further work up. Patient was told not to take eliquis or aspirin until otherwise instructed by her jewel supervisor Patient is on protonix which was continued during the hospital stay. continue other home medications-spironolactone, metoprolol, synthroid, sildenafil. Patient prescribed oral levaquin and Doxycycline to cover any infection in her sacral wound. Home health for PT and senior living ordered. WOUND CARE: Left Shoulder, Left Upper Arm- Cleanse with soap/water; rinse well with NS. A pply Vashe moistened gauze, dry gauze, and tape daily. Sacral- Arm- Cleanse with soap/water; rinse well with NS. Apply Santyl, gauze, foam daily Diet: AHA Activity: Fall precautions Followup: Bozena Manning NP [Primary Care Provider] - 1-2 Weeks Davin Parra MD [ACTIVE - CAN ADMIT] - 1 Week (At the Wound care clinic within 1 week) Time spent managing pt's care (in minutes): 36
[2025-01-10 12:25] VITALS: BP 138/61
[2025-01-10 12:31] VITALS: TEMP 97.6
--- NOTE | 2025-01-10 13:52 | P.PN ---
Date of Service: 01/10/25 Subjective: The patient lying in bed, alert and awake. no new acute event as per staff. Pt will be discharge today Objective: Vital Signs: Temp Pulse Resp BP Pulse Ox 97.6 F 65 16 138/61 96 01/10/25 12:00 01/10/25 12:00 01/10/25 12:00 01/10/25 12:00 01/10/25 12:00 neuro: aox 3 Lungs: CTA Heart: S1, S2. Regular. Abdomen: Soft, nontender. Bowel sounds present. Extremities: No edema. culture 01/02 urine: e coli 01/02 blood: no growth in 24 hrs diagnostic 01/02: chest xray:Mild interstitial pulmonary edema seen. Patchy opacity in both lung bases, greater on the left may be chronic or related to mild infiltrate/pneumonia. The heart is moderately enlarged. No displaced fractures identified. Single-lead pacer device. 01/02: CT chest, abdomen and pelvis: acute abnormalities seen in the chest, abdomen or pelvis. Laboratory Data: WBC 7.9, hemoglobin 9.6, platelets 159, BUN of 13, creatinine 1.04 Assessment 1. Altered mental status secondary to pneumonitis versus urosepsis 2. Pyuria. 3. Hematuria. 4. Sacral decubitus ulcer 5. Anemia of chronic disease. 6. Renal insufficiency. Plan: completed Rocephin treatment for 7 days. Monitor signs of infection with WBC and fever trends. discharge with doxycyline PO BID x 7 days and levaquin PO daily x 7 days continue would care and offloading CASE ROUND AND IN AGREEMENT WITH DR JORDAN
== END 2025-01-10 13:37 | disposition home health service (06) | DRG 193 ==
LOC: ER 18:23 → ERHOLD 22:40 → 2ND 23:24
PROVIDERS: ADMIT Family Medicine; ATTEND Internal Medicine
PROC: 0T9B70Z Drainage of Bladder with Drainage Device, Via Natural or Artificial Opening (ICD-10-PCS; principal; 2025-01-08)
DX: J18.1 Lobar pneumonia, unspecified organism (principal); G93.41 Metabolic encephalopathy; I50.32 Chronic diastolic (congestive) heart failure; N39.0 Urinary tract infection, site not specified; N17.9 Acute kidney failure, unspecified; I11.0 Hypertensive heart disease with heart failure; E03.9 Hypothyroidism, unspecified; I48.91 Unspecified atrial fibrillation; L89.159 Pressure ulcer of sacral region, unspecified stage; K63.9 Disease of intestine, unspecified; K29.80 Duodenitis without bleeding; I27.20 Pulmonary hypertension, unspecified; I87.8 Other specified disorders of veins; M47.892 Other spondylosis, cervical region; K74.60 Unspecified cirrhosis of liver; K42.9 Umbilical hernia without obstruction or gangrene; K43.9 Ventral hernia without obstruction or gangrene; D63.8 Anemia in other chronic diseases classified elsewhere; B96.20 Unspecified Escherichia coli [E. coli] as the cause of diseases classified elsewhere; R31.9 Hematuria, unspecified; Z95.0 Presence of cardiac pacemaker; Z79.890 Hormone replacement therapy; Z79.899 Other long term (current) drug therapy; Z86.718 Personal history of other venous thrombosis and embolism
CPT/HCPCS: 36415; 51702; 70450; 71045; 71250; 72125; 74176; 80048; 80053; 80061; 80076; 81001; 82533; 82947; 83605; 83690; 83735; 83880; 84132; 84145; 84439; 84443; 84484; 85025; 85027; 85610; 87040; 87077; 87086; 87088; 87186; 92610; 93005; 94760; 96365; 96367; 96375; 97110; 97161; 97530; 99285; J0692; J0696; J1720; J1938; J2405; J3370; J3480; J3590; J7030; J7040; J7050; J7799

== ENCOUNTER 2025-01-16 12:24 | Inpatient (IN) | payer OTHER ==
[2025-01-16 13:39] LABS: Influenza A Ag Negative; Influenza B Ag Negative; SARS-CoV-2 Antigen Rapid Res Negative (Negative)
--- NOTE | 2025-01-16 13:48 | RAD REPORT ---
EXAMINATION: ONE VIEW CHEST XR CLINICAL INDICATION: Female, 79 years old.,COUGH TECHNIQUE: Frontal chest projection is submitted. Examination is limited by patient positioning and t echnique. COMPARISON: 01/02/2025 FINDINGS: The lungs are well inflated. Stable retrocardiac hazy opacification, could reflect atelectasis. Right lung is clear.. No pneumothorax or sizable effusion. Stable cardiomegaly. Mediastinal contours are unchanged. Left chest wall pacer/AICD in place.. IMPRESSION: Stable retrocardiac hazy opacities, could reflect atelectasis. Stable cardiomegaly.
[2025-01-16 13:50] LABS: PT Prothrombin Time 16.2 SECONDS (10-13.0); Protime INR 1.45
--- NOTE | 2025-01-16 13:57 | RAD REPORT ---
EXAM: CT brain without contrast HISTORY: MENTAL STATUS CHANGE COMPARISON: 01/02/2025 TECHNIQUE: Multiple contiguous axial images were obtained and a CT of the brain without contrast. Sag ittal and coronal reformats were performed. FINDINGS: No evidence of hydrocephalus, intracranial hemorrhage, or extra-axial fluid collection. Mild brain atrophy with mild periventricular and deep white matter chronic microvascular ischemic ch anges present. The calvarium is intact. The visualized paranasal sinuses and mastoid air cells are essentially clear . IMPRESSION: No evidence of acute intracranial abnormality. EXAM: CT of the cervical spine without contrast HISTORY: MENTAL STATUS CHANGE COMPARISON: None TECHNIQUE: Multiple contiguous axial images were obtained in a CT of the cervical spine without contr ast. Sagittal and coronal reformats were performed. FINDINGS: The vertebral bodies demonstrate normal height appears stable alignment with multilevel mil d spondylolisthesis secondary to facet and endplate remodeling, with grade 1 anterolisthesis most notably at C4-5 measuring 4 mm. Advanced pannus at the C1-2 articulation, without significant mass ef fect upon the spinal canal. Up to moderate degrees of neural foraminal narrowing most notably at C4-5 on the left. No evidence of acute fracture or subluxation. No prevertebral soft tissue swelling is seen. The lung apices are unremarkable. IMPRESSION: No evidence of acute osseous abnormality of the cervical spine. Stable spondylotic changes as above.
--- NOTE | 2025-01-16 14:03 | RAD REPORT ---
EXAM: CT CHEST, ABDOMEN AND PELVIS WITHOUT CONTRAST CLINICAL INDICATION: Female, 79 years old. [facility] TECHNIQUE: CT chest, abdomen and pelvis was performed, without IV contrast, as per department protoco l. Axial, sagittal and coronal reconstructions were obtained. One or more of the following dose reduction techniques were used: Automated exposure control, adjustment of the mA and/or kV according to the patient size, and/or iterative reconstruction. Unless otherwise specified, incidental findings do not require dedicated imaging follow-up. COMPARISON: 01/02/2025 FINDINGS: The lack of intravenous contrast limits the sensitivity of this exam for evaluation of solid visceral organs, vascular structures, and retroperitoneum. Chest: LOWER NECK/CHEST WALL: Visualized thyroid gland and soft tissues are normal. LUNGS AND AIRWAYS: Elevation of the left hemidiaphragm again seen with subsegmental left basilar atel ectasis Airways are clear. No evidence of airspace or interstitial process. No nodules. PLEURA: No pleural effusion. No pneumothorax. Hemidiaphragms are normally positioned. MEDIASTINUM AND LYMPH NODES: No mediastinal mass or fluid collection. Normal size mediastinal, hilar, and axillary lymph nodes. THORACIC AORTA: Normal caliber and configuration. PULMONARY ARTERIES: Normal caliber. HEART: Stable cardiomegaly. Abdomen/Pelvis LIVER: Normal in size and contour. No focal lesion. GALLBLADDER/BILE DUCTS: Layering hyperdense gallstones. No biliary ductal dilatation. PANCREAS: No mass, ductal dilation, or nagelo-pancreatic fluid. SPLEEN: Normal size. No focal lesion. ADRENALS: Normal; no mass. KIDNEYS AND URETERS: Normal size and contour. No hydronephrosis. GASTROINTESTINAL TRACT: Stomach is non-dilated. Small bowel has normal course and caliber. No colonic wall thickening or pericolonic inflammatory changes. PERITONEUM: No free fluid. LYMPH NODES: No lymphadenopathy. ABDOMINAL AORTA AND OTHER VESSELS: Normal caliber aorta and IVC. URINARY BLADDER: Normal contour. REPRODUCTIVE ORGANS: No pathologic process. MUSCULOSKELETAL: No acute or suspicious osseous abnormality. ADDITIONAL FINDINGS: Stable supraumbilical midline ventral fat-containing hernia with narrow neck, an d stable small umbilical fat-containing hernia. Left chest wall pacer/AICD in place. IMPRESSION: No acute or significant abnormalities in the chest, abdomen, or pelvis. Incidental findings as above, including cholelithiasis.
[2025-01-16 14:05] LABS: Albumin 2.4 g/dL (3.4-5.0); Albumin/Globulin Ratio 0.6 (1.1-1.8); Anion Gap 8.8 mEq/L (5.0-15.0); Bilirubin Direct 0.3 mg/dL (0-0.2); Bilirubin Indirect, Calculated 0.2 mg/dL (0.2-0.8); Bilirubin Total 0.5 mg/dL (0.2-1.0); Globulin 3.9 g/dL (2.3-3.5); Magnesium 1.4 mg/dL (1.6-2.4); Potassium 3.8 mEq/L (3.5-5.1); Protein, Total 6.3 g/dL (6.4-8.2); Troponin High Sensitivity 13.8 pg/mL (<58.9)
[2025-01-16] MEDS ORDERED: CEFTRIAXONE 1000 MG/VIAL ONE (14:12)
[2025-01-16] MEDS ORDERED: FOLIC ACID 5 MG/ML VIAL ONE (14:12)
[2025-01-16] MEDS ORDERED: FAMOTIDINE 20 MG/2 ML VIAL IV ONE (14:12)
[2025-01-16] MEDS ORDERED: NA CHLORIDE 0.9% 100 ML ONE (14:13)
[2025-01-16] MEDS ORDERED: NA CHLORIDE 0.9% 1,000 ML ONE (14:13)
[2025-01-16 14:45] LABS: Absolute Eosinophils 0.1 K/uL (0-0.5); Absolute Lymphocytes (CBC) 1.3 K/uL (0.7-4.9); Absolute Monocytes 0.8 K/uL (0.1-1.3); Absolute Neutrophil 4.3 K/uL (1.8-8.0); Basophils % 0.4 % (0-1.3); Eosinophils % 1.6 % (0-4.4); Hematocrit 31.7 % (36.0-45.0); Hemoglobin 10.5 g/dL (12.0-15.0); Lymphocytes % 19.8 % (15.3-44.8); MCH 28.6 pg (27.0-35.0); MCV 86.9 fL (80-100); MPV 8.1 fL (7.6-11.3); Monocytes % 11.9 % (3.3-12.3); Neutrophils % 66.3 % (41.7-73.7); Nucleated Red Blood Cells % 0.1 % (0-0); Platelets 252 thou/uL (152-406); RBC Red Blood Cell Count 3.66 M/uL (3.86-4.86); Red Cell Distribution Width 19.8 % (12.1-15.2)
[2025-01-16 14:50] LABS: Specific Gravity 1.015 (1.005-1.030); Sqamous Epithelial <5 /HPF (None Seen); Urine Bacteria None Seen /HPF (<20); Urine Bilirubin NEGATIVE (Negative); Urine Blood Negative (Negative); Urine Clarity Clear (Clear); Urine Color Light-Yellow (Yellow); Urine Culture Reflex Order NOT NEEDED; Urine Glucose NEGATIVE (Negative); Urine Ketones NEGATIVE (Negative); Urine Microscopic Reflex YN ORDER UMIC; Urine Nitrite NEGATIVE (Negative); Urine Protein NEGATIVE (Negative); Urine RBC <5 /HPF (None Seen); Urine Urobilinogen Normal (Normal); Urine WBC <5 /HPF (<5); Urine pH 6.5 (5.0-7.0)
[2025-01-16] MEDS ORDERED: Magnesium Sulfate 2gm IVPB 2 G/50 ML BAG IV ONE (15:25)
--- NOTE | 2025-01-16 15:25 | ER ---
Nurse's Notes [facility] Name: Arabella Chou Age: 79 yrs Sex: Female : 1945 Arrival Date: 01/16/2025 Time: 12:24 Bed 4 Private MD: Diagnosis: Altered mental status, unspecified;Hypomagnesemia;Acute kidney failure, unspecified-on chronic;Venous insufficiency (chronic) (peripheral);Presence of cardiac pacemaker Presentation: 01/16 12:27 Chief complaint: EMS states: toned out for AMS, generalized weakness and possible uti. me1 Patient has been seen here recently for the same. Baseline patient is A\T\OX3. Today A\T\Ox1-2. She has an abscess to LUE that is being treated by wound healing center and . Coronavirus screen: At this time, the client does not indicate any symptoms associated with coronavirus-19. Ebola Screen: No symptoms or risks identified at this time. 12:27 Method Of Arrival: EMS: [place] [id number] 12:29 Initial Sepsis Screen: Does the patient meet any 2 criteria? No. [place] [facility]. Does the patient have a suspected source of infection? No. Patient's initial sepsis screen is negative. Risk Assessment: Do you want to hurt yourself or someone else? Patient reports no desire to harm self or others. Onset of symptoms is unknown. 12:29 Acuity: [place] 3 [facility] Assessment: 12:29 General: Appears in no apparent distress. well groomed, well developed, well nourished, [facility] Behavior is calm, cooperative, appropriate for age, Reports fatigue for 1-2 days. Pain: Denies pain. EENT: No signs and/or symptoms were reported regarding the EENT system. Neuro: Level of Consciousness is awake, alert, obeys commands, confused, Oriented to person. Cardiovascular: Patient's skin is warm and dry. Respiratory: Airway is patent Respiratory effort is even, unlabored, Respiratory pattern is regular, symmetrical. GI: No signs and/or symptoms were reported involving the gastrointestinal system. : Reports incontinence, with foul smelling urine. Derm: Skin is fragile, with poor turgor Skin is pink, warm \T\ dry. Wound noted left bicep Wound is abscess x 2. Being seen by wound healing center and . Musculoskeletal: Reports generalized weakness. Historical: - Allergies: 12: No Known Allergies; hb - PMHx: 12:26 Hypertensive disorder; Deep vein thrombosis; Congestive heart failure; hb - PSHx: 12:26 pacemaker; hb - Immunization history:: Adult Immunizations up to date. - Infectious Disease History:: Denies. - Social history:: Smoking status: unknown. Screenin:32 [facility] ED Fall Risk Assessment (Adult) History of falling in the last 3 months, me1 including since admission No falls in past 3 months (0 pts) Confusion or Disorientation Yes (5 pts) Intoxicated or Sedated No (0 pts) Impaired Gait Yes (1 pt) Mobility Assist Device Used Yes (1 pt) Altered Elimination Yes (1 pt) Score/Fall Risk Level 0 - 2 = Low Risk Maintained a safe environment, Provided non-skid footwear, Hourly rounding (assess needs \T\ fall precautionary measures) done. Abuse screen: Denies threats or abuse. Nutritional screening: No deficits noted. Tuberculosis screening: No symptoms or risk factors identified. Assessment: 12:32 General: See triage assessment. me1 Vital Signs: 12:29 BP 141 / 62; Pulse 65; Resp 18; Temp 97.8; Pulse Ox 96% ; Weight 97 kg; Height 5 ft. 4 me1 in. ; Pain 0/10; 13:00 BP 140 / 59; Pulse 61; Resp 17; Pulse Ox 99% ; me1 14:00 BP 127 / 52; Pulse 62; Resp 18; Pulse Ox 97% ; me1 15:00 BP 145 / 55; Pulse 61; Resp 17; Pulse Ox 99% ; me1 16:00 BP 160 / 54; Pulse 61; Resp 15; Pulse Ox 99% ; me1 12:29 Body Mass Index 36.71 (97.00 kg, 162.56 cm) me1 12:29 Pain Scale: Adult ar1 ED Course: 12:26 Patient arrived in ED. hb 12:26 Sidra Trent, RN is Primary Nurse. me1 12:26 Arm band placed on. hb 12:30 Triage completed. me1 12:32 Patient has correct armband on for positive identification. Bed in low position. Call me1 light in reach. Side rails up X2. Provided Education on: POC. Verbalized understanding.. Client placed on continuous cardiac and pulse oximetry monitoring. NIBP monitoring applied. 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 Pulse ox on. NIBP on. 12:32 No provider procedures requiring assistance completed. me1 12:34 Salinas Madera MD is Attending Physician. [facility] 13:00 COVID-19 Ag + Flu A+B Ag Sent. ar1 13:00 COVID swab sent to lab. me1 13:01 XRAY Chest (1 view) In Process Unspecified. EDMS 13:09 Chest Abd Pelvis Wo Con In Process Unspecified. EDMS 13:09 Head C Spine Mpr Wo Con In Process Unspecified. EDMS 13:27 Initial lab(s) drawn, by ar, sent to lab. First set of blood cultures drawn by ar. me1 13:33 Basic Metabolic Panel Sent. me1 13:33 CBC with Diff Sent. me1 13:33 LFT's Sent. me1 13:33 Magnesium Sent. me1 13:33 NT PRO-BNP Sent. me1 13:33 PT-INR Sent. me1 13:33 Lipid Profile Sent. me1 13:33 Lactate w/ 2H reflex if indic. Sent. me1 13:33 Blood Culture Adult (2) Sent. me1 13:33 COVID-19 Ag + Flu A+B Ag Sent. me1 13:33 Inserted saline lock: 22 gauge in right antecubital area, using aseptic technique. me1 13:37 Second set of blood cultures drawn by ar. me1 14:02 EKG done, by ED staff, reviewed by Salinas Madera MD. me1 14:33 Urine collected: straight cath specimen, cloudy, Amount Returned: 500mL. me1 15:22 Khoa Marquez MD is Hospitalizing Provider. [facility] 16:23 Patient admitted, IV remains in place. me1 Administered Medications: 14:33 Drug: NS 0.9% IV 1000 ml IV at 1000 ml once; to be given as a bolus over 60 minutes me1 Route: IV; Rate: 1000 ml; Site: right antecubital; 16:07 Follow up: Response: No adverse reaction; IV Status: Completed infusion me1 14:33 Drug: foLIC Acid IVPB 1 mg IVPB once Route: IVPB; Site: right antecubital; ar1 16:07 Follow up: Response: No adverse reaction; IV Status: Completed infusion me1 14:33 Drug: Rocephin IV 1 grams IV at per protocol once; Given slow IV push per pharmacy me1 instructions Route: IV; Rate: per protocol; Site: right antecubital; 16:07 Follow up: Response: No adverse reaction; IV Status: Completed infusion me1 14:33 Drug: Famotidine IVP 20 mg IVP once; dilute with 10 mL 0.9% NaCl; give over 2 minutes me1 Route: IVP; Site: right antecubital; 16:07 Follow up: Response: No adverse reaction me1 15:34 Drug: Magnesium Sulfate IVPB 2 grams IVPB once over 1 hrs Route: IVPB; Infused Over: 1 ph hrs; Site: right antecubital; 16:35 Follow up: Response: No adverse reaction; IV Status: Completed infusion me1 Medication: 12:32 VIS not applicable for this client. me1 Outcome: 15:24 Decision to Hospitalize by Provider. nithin 16:23 Admitted to Med/surg accompanied by tech, via stretcher, room 203, with chart, Report me1 called to faxed, receipt confirmed with Ned 16:23 Condition: stable 16:23 Instructed on the need for admit, 17:28 Patient left the ED. me1 Signatures: Dispatcher [employer] Salinas Salvador MD MD cha Hall, Patricia, RN RN Jacki Workman, [place] RN Sidra Alas RN RN me1
--- NOTE | 2025-01-16 15:25 | EDPHYS ---
Physician Documentation [facility] Name: Arabella Chou Age: 79 yrs Sex: Female : 1945 Arrival Date: 01/16/2025 Time: 12:24 Bed 4 Private MD: ED Physician [place] HPI: 01/16 14:47 This 79 yrs old Female presents to ER via EMS with complaints of Altered nithin Mental Status. 14:47 The patient presents with confusion, decreased mental status. Onset: The nithin symptoms/episode began/occurred 3 day(s) ago. Possible causes: CVA or TIA, head injury, low blood sugar, seizure, sepsis, the patient has an indwelling Toussaint catheter, the patient has a known UTI history. Associated signs and symptoms: The patient has no apparent associated signs or symptoms. Historical: - Allergies: 12:26 No Known Allergies; hb - PMHx: 12:26 Hypertensive disorder; Deep vein thrombosis; Congestive heart failure; hb - PSHx: 12:26 pacemaker; hb - Immunization history:: Adult Immunizations up to date. - Infectious Disease History:: Denies. - Social history:: Smoking status: unknown. ROS: 15:17 Constitutional: Negative for fever, chills, and weight loss, Eyes: Negative for injury, nithin pain, redness, and discharge, ENT: Negative for injury, pain, and discharge, Neck: Negative for injury, pain, and swelling, Cardiovascular: Negative for chest pain, palpitations, and edema, Respiratory: Negative for shortness of breath, cough, wheezing, and pleuritic chest pain, Abdomen/GI: Negative for abdominal pain, nausea, vomiting, diarrhea, and constipation, Back: Negative for injury and pain, : Negative for injury, bleeding, discharge, and swelling, MS/Extremity: Negative for injury and deformity, Skin: Negative for injury, rash, and discoloration, Psych: Negative for depression, anxiety, suicide ideation, homicidal ideation, and hallucinations, Allergy/Immunology: Negative for hives, rash, and allergies, Endocrine: Negative for neck swelling, polydipsia, polyuria, polyphagia, and marked weight changes, Hematologic/Lymphatic: Negative for swollen nodes, abnormal bleeding, and unusual bruising, 15:17 MS/extremity: Positive for venous stasis, 15:17 Neuro: Positive for altered mental status, weakness, Exam: 15:17 Constitutional: This is a well developed, well nourished patient who is awake, alert, nithin and in no acute distress. Head/Face: Normocephalic, atraumatic. Eyes: Pupils equal round and reactive to light, extra-ocular motions intact. Lids and lashes normal. Conjunctiva and sclera are non-icteric and not injected. Cornea within normal limits. Periorbital areas with no swelling, redness, or edema. ENT: Nares patent. No nasal discharge, no septal abnormalities noted. Tympanic membranes are normal and external auditory canals are clear. Oropharynx with no redness, swelling, or masses, exudates, or evidence of obstruction, uvula midline. Mucous membranes moist. Neck: Trachea midline, no thyromegaly or masses palpated, and no cervical lymphadenopathy. Supple, full range of motion without nuchal rigidity, or vertebral point tenderness. No Meningismus. Chest/axilla: Normal chest wall appearance and motion. Nontender with no deformity. No lesions are appreciated. Cardiovascular: Regular rate and rhythm with a normal S1 and S2. No gallops, murmurs, or rubs. Normal PMI, no JVD. No pulse deficits. Respiratory: Lungs have equal breath sounds bilaterally, clear to auscultation and percussion. No rales, rhonchi or wheezes noted. No increased work of breathing, no retractions or nasal flaring. Abdomen/GI: Soft, non-tender, with normal bowel sounds. No distension or tympany. No guarding or rebound. No evidence of tenderness throughout. Back: No spinal tenderness. No costovertebral tenderness. Full range of motion. Female : Normal external genitalia. Neuro: Awake and alert, GCS 15, oriented to person, place, time, and situation. Cranial nerves II-XII grossly intact. Motor strength 5/5 in all extremities. Sensory grossly intact. Cerebellar exam normal. Normal gait. Psych: Awake, alert, with orientation to person, place and time. Behavior, mood, and affect are within normal limits. 15:17 ECG was reviewed by the Attending Physician. 15:17 Musculoskeletal/extremity: DVT Exam: no pain, no swelling, no appreciated bluish discoloration, no erythema, no increased warmth, tenderness, Calves: are non-tender, have equal circumference, bilateral Venous stasis. Vital Signs: 12:29 BP 141 / 62; Pulse 65; Resp 18; Temp 97.8; Pulse Ox 96% ; Weight 97 kg; Height 5 ft. 4 me1 in. ; Pain 0/10; 13:00 BP 140 / 59; Pulse 61; Resp 17; Pulse Ox 99% ; me1 14:00 BP 127 / 52; Pulse 62; Resp 18; Pulse Ox 97% ; me1 15:00 BP 145 / 55; Pulse 61; Resp 17; Pulse Ox 99% ; me1 16:00 BP 160 / 54; Pulse 61; Resp 15; Pulse Ox 99% ; me1 12:29 Body Mass Index 36.71 (97.00 kg, 162.56 cm) me1 12:29 Pain Scale: Adult me1 MDM: 12:34 Medical Screening Exam initiated nithin 15:19 Differential Diagnosis: CVA, electrolyte abnormality, alcohol intoxication, nithin hypoglycemia, intracranial bleed, meningitis, overdose, pneumonia, seizure, sepsis, TIA, UTI, volume depletion. Data reviewed: vital signs, nurses notes, EMS record, lab test result(s), EKG, radiologic studies, CT scan, plain films. Consideration of Admission/Observation Patient was admitted/placed on observation. Escalation of care including admission/observation considered. I considered the following discharge prescriptions or medication management in the emergency department Medications were administered in the Emergency Department. See MAR. Independent interpretation of the following test(s) in the Emergency Department EKG: See my EKG interpretation above. Test considered but Not performed: MRI: no mri brain. Historians other than the Patient: Daughter/Son: daughter well informed. Care significantly affected by the following chronic conditions: Hypertension, Congestive Heart Failure, Obesity, dvt. Counseling: I had a detailed discussion with the patient and/or guardian regarding the historical points, exam findings, and any diagnostic results supporting the discharge/admit diagnosis, lab results, radiology results, the need for further work-up and treatment in the hospital. 01/16 12:36 Order name: Basic Metabolic Panel; Complete Time: 15:10 [facility] 01/16 12:36 Order name: CBC with Diff; Complete Time: 15:10 [facility] 01/16 12:36 Order name: LFT's; Complete Time: 15:10 [facility] 01/16 12:36 Order name: Magnesium; Complete Time: 15:10 [facility] 01/16 12:36 Order name: NT PRO-BNP; Complete Time: 15:10 [facility] 01/16 12:36 Order name: PT-INR; Complete Time: 15:10 [facility] 01/16 12:36 Order name: Troponin HS; Complete Time: 15:10 [facility] 01/16 12:36 Order name: Lipid Profile; Complete Time: 15:10 [facility] 01/16 12:36 Order name: Blood Culture Adult (2) [facility] 01/16 12:36 Order name: Lactate w/ 2H reflex if indic.; Complete Time: 15:10 [facility] 01/16 12:36 Order name: UA Rfx Savage Cult if indicated; Complete Time: 15:10 [facility] 01/16 12:36 Order name: COVID-19 Ag + Flu A+B Ag; Complete Time: 15:10 [facility] 01/16 15:48 Order name: CBC with Automated Diff EDMS 01/16 15:48 Order name: CBC with Automated Diff EDMS 01/16 15:48 Order name: Comprehensive Metabolic Panel EDMS 01/16 15:48 Order name: Comprehensive Metabolic Panel EDAZ 01/16 12:36 Order name: XRAY Chest (1 view); Complete Time: 15:10 [facility] 01/16 12:40 Order name: Chest Abd Pelvis Wo Con; Complete Time: 15:10 EDMS 01/16 12:41 Order name: Head C Spine Mpr Wo Con; Complete Time: 15:10 [facility] 01/16 12:36 Order name: Cardiac monitoring; Complete Time: 17:09 [facility] 01/16 12:36 Order name: EKG - Nurse/Tech; Complete Time: 17:09 [facility] 01/16 12:36 Order name: IV Saline Lock; Complete Time: 13:33 [facility] 01/16 12:36 Order name: Labs collected and sent; Complete Time: 13:33 [facility] 01/16 12:36 Order name: O2 Per Protocol; Complete Time: 13:33 [facility] 01/16 12:36 Order name: O2 Sat Monitoring; Complete Time: 13:33 [facility] EC:17 Rate is 63 beats/min. Rhythm is regular. QRS [place] is Normal. [place] interval is normal. QRS nithin interval is normal. QT interval is normal. No Q waves. T waves are Normal. No ST changes noted. Clinical impression: Abnormal EKG without significant change and No evidence of ischemia. Interpreted by me. Reviewed by me. Administered Medications: 14:33 Drug: NS 0.9% IV 1000 ml IV at 1000 ml once; to be given as a bolus over 60 minutes me1 Route: IV; Rate: 1000 ml; Site: right antecubital; 16:07 Follow up: Response: No adverse reaction; IV Status: Completed infusion me1 14:33 Drug: foLIC Acid IVPB 1 mg IVPB once Route: IVPB; Site: right antecubital; me1 16:07 Follow up: Response: No adverse reaction; IV Status: Completed infusion me1 14:33 Drug: Rocephin IV 1 grams IV at per protocol once; Given slow IV push per pharmacy me1 instructions Route: IV; Rate: per protocol; Site: right antecubital; 16:07 Follow up: Response: No adverse reaction; IV Status: Completed infusion me1 14:33 Drug: Famotidine IVP 20 mg IVP once; dilute with 10 mL 0.9% NaCl; give over 2 minutes me1 Route: IVP; Site: right antecubital; 16:07 Follow up: Response: No adverse reaction me1 15:34 Drug: Magnesium Sulfate IVPB 2 grams IVPB once over 1 hrs Route: IVPB; Infused Over: 1 ph hrs; Site: right antecubital; 16:35 Follow up: Response: No adverse reaction; IV Status: Completed infusion me1 Disposition Summary: 01/16/25 15:24 Hospitalization Ordered Notes: Hospitalization Status: Inpatient Admission nithin Provider: Khoa Marquez cha Location: Telemetry/MedSurg (Inpatient) nithin Condition: Fair nithin Problem: new nithin Symptoms: have improved nithin Bed/Room Type: Standard nithin Room Assignment: 203(01/16/25 16:02) bd Diagnosis - Altered mental status, unspecified nithin - Hypomagnesemia nithin - Acute kidney failure, unspecified - on chronic nithin - Venous insufficiency (chronic) (peripheral) nithin - Presence of cardiac pacemaker nithin Forms: - Medication Reconciliation Form nithin - SBAR form nithin - Leadership Thank You Letter nithin Signatures: Dispatcher [employer] Ary Porter Corey, MD MD cha Hall, Patricia, RN RN Jacki Dan, [place] RN Sidra Trent RN RN me1 Corrections: (The following items were deleted from the chart) 12:37 12:36 BASIC METABOLIC PANEL+C.LAB.BRZ ordered. EDMS EDMS 12:37 12:36 CBC+H.LAB.BRZ ordered. EDMS EDMS 12:37 12:36 HEPATIC FUNCTION+C.LAB.BRZ ordered. EDMS EDMS 12:37 12:36 MAGNESIUM+C.LAB.BRZ ordered. EDMS EDMS 12:37 12:36 PROBNP+C.LAB.BRZ ordered. EDMS EDMS 12:37 12:36 PROTIME (+INR)+COAG.LAB.BRZ ordered. EDMS EDMS 12:37 12:36 Troponin High Sensitivity+C.LAB.BRZ ordered. EDMS EDMS 12:37 12:36 LIPID PROFILE+C.LAB.BRZ ordered. EDMS EDMS 12:37 12:36 BLOOD CULTURE*+BA.LAB.BRZ ordered. EDMS EDMS 12:37 12:36 LACTATE+C.LAB.BRZ ordered. EDMS EDMS 12:37 12:36 UA Rfx Savage Cult if indicated+U.LAB.BRZ ordered. EDMS EDMS 12:37 12:36 COVID-19 Ag + Flu A+B Ag+I.LAB.BRZ ordered. EDMS EDMS 12:37 12:37 Chest Single View+RAD.RAD.BRZ ordered. EDMS EDMS 12:37 12:37 Head C Spine Cap Wo Con+CT.RAD.BRZ ordered. EDMS EDMS 16:02 15:24 nithin bd
[2025-01-16] MEDS ORDERED: ONDANSETRON 4 MG/2 ML VIAL IV PRN (15:44)
[2025-01-16] MEDS ORDERED: ACETAMINOPHEN 650MG/RECT SUPP PR PRN (15:44)
--- NOTE | 2025-01-16 15:47 | P.HP ---
Date of Service: 01/16/25 error
[2025-01-16] MEDS: NA CHLORIDE 0.9% 1,000 ML IV SCH (16:00)
--- NOTE | 2025-01-16 17:21 | P.HP ---
Patient History Date of Service: 01/16/25 History of Present Illness: 79-year-old female with a past medical history of A-fib, anemia, CHF, presence of pacemaker presenting with altered mental status for the last 2 days. She is accompanied by her [id number] who states the patient lives very close to her. Over the last few days they have noticed increasing hallucination, insomnia, and worse cognition. The [id number] denies any fevers, cough, malodorous urine. 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 In addition patient has not been eating or drinking. The [id number]-azi is very concerned Allergies No Known Allergies Allergy (Verified 12/06/24 01:26) Home Medications: Fenofibrate,Micronized [Fenofibrate] 134 mg PO DAILY 12/06/24 Levothyroxine Sodium 25 mcg PO DAILY 12/06/24 Metoprolol Tartrate 25 mg PO DAILY 12/06/24 Sildenafil Citrate 20 mg PO BID 12/06/24 Spironolactone 25 mg PO DAILY 12/06/24 Furosemide [Lasix*] 40 mg PO DAILY #30 tab 12/14/24 Collagenase [Santyl Ointment*] 1 appl TOP DAILY #30 gm 01/10/25 Doxycycline Hyclate 100 mg PO BID #14 cap 01/10/25 Hydrocodone 5/APAP 325 [[place] 5/325] 1 tab PO Q6H PRN #15 tab 01/10/25 Nystatin Powder [Mycostatin (Powder)*] 1 appl TOP DAILY PRN #1 bottle 01/10/25 Pantoprazole [Protonix Tab*] 40 mg PO DAILYAC #30 tab 01/10/25 Zinc Oxide [Zinc Oxide 20%*] 1 appl TOP BID #1 tube 01/10/25 levoFLOXacin [Levaquin] 750 mg PO DAILY #7 tab 01/10/25 - Past Medical/Surgical History Diabetic: No -: Afib on Eliquis -: CHF-chronic diastolic -: Htn -: DVT -: Hypothyroidism -: Pulmonary hypertension Psychosocial/ Personal History: Lives at home with her daughter - Family History Father -: Hypertension - Social History Alcohol use: No CD- Drugs: No Caffeine use: Yes Review of Systems is unable to be obtained Physical Examination - Physical Exam General: In no apparent distress HEENT: Atraumatic, Normocephalic Neck: Supple Respiratory: Clear to auscultation bilaterally Cardiovascular: No edema Capillary refill: <2 Seconds Gastrointestinal: Normal bowel sounds, Soft and benign Musculoskeletal: No clubbing Integumentary: Warmth (Bilateral lower extremity redness) Neurological: Normal strength at 5/5 x4 extr Lymphatics: No axilla or inguinal lymphadenopathy - Studies Laboratory Data (last 24 hrs) 01/16/25 01/16/25 01/16/25 13:29 13:29 13:29 WBC 6.50 Hgb 10.5 L Hct 31.7 L Plt Count 252 PT 16.2 H INR 1.45 Sodium 141 Potassium 3.8 BUN 30 H Creatinine 2.04 H Glucose 79 Magnesium 1.4 L Total Bilirubin 0.5 AST 25 ALT 46 Alkaline Phosphatase 126 H Triglycerides 69 Cholesterol 112 HDL Cholesterol 56 Cholesterol/HDL Ratio 2.00 Assessment and Plan - Plan Acute metabolic encephalopathy Acute kidney injury Dehydration Generalized weakness CHF Colonic mass (7x4 cm) Hypothyroid Atrial fibrillation Presence of cardiac pacemaker History of sacral ulcer Anemia Stasis dermatitis Admit to floor Start IV fluid Obtain renal ultrasound History of indwelling catheter and sacral ulcer Check procalcitonin and CRP Check TSH, restart Synthroid Blood cultures pending Urinalysis within normal limit Head and neck CT within normal limit Continue IV antibiotic PT/OT Avoid sedative medication Wound care consult and continue Santyl Continue metoprolol DVT prophylaxis with heparin - Advance Directives Does patient have a Living Will: No Does patient have a Durable POA for Healthcare: No
[2025-01-16 18:14] VITALS: BMI 36.6
[2025-01-16] MEDS: HEPARIN 5000 UNIT/ML 1 ML VIAL SQ SCH (18:39)
[2025-01-16] MEDS: ALBUTEROL 2.5 MG/3 ML NEB SOL NEB SCH (20:32)
--- NOTE | 2025-01-16 20:33 | RAD REPORT ---
EXAMINATION: US RETROPERITONEUM CLINICAL INDICATION: [facility] MAIN Acute kidney injury TECHNIQUE: Real-time ultrasonography of the kidneys and bladder was performed. COMPARISON: 01/16/2025. FINDINGS: RIGHT KIDNEY: Right renal length measurement: 9.1 cm. Normal in echogenicity and size. No calculus, s olid mass or hydronephrosis. LEFT KIDNEY: Left renal length measurement: 8.4 cm. Normal in echogenicity and size. No calculus, ceci id mass or hydronephrosis. Ill-defined fluid adjacent to the lower pole the left kidney, could represent mild perinephric edema or fluid within bowel. URINARY BLADDER: Decompressed limiting evaluation. ADDITIONAL FINDINGS: None. IMPRESSION: No acute or significant abnormalities. Nonspecific ill-defined fluid adjacent to the lower pole of th e left kidney, could represent mild perinephric edema or fluid within bowel.
[2025-01-16 21:00] LABS: C-Reactive Protein 52.9 mg/L (<3.00); Thyroid Stimulating Hormone 13.2 uIU/mL (0.358-3.740)
[2025-01-17] MEDS: D5 0.9 NS 1,000 ML IV SCH (00:37)
[2025-01-17] MEDS: LEVOTHYROXINE SOD 0.025 MG TAB PO SCH (05:58)
[2025-01-17 06:44] LABS: Absolute Eosinophils 0.1 K/uL (0-0.5); Absolute Lymphocytes (CBC) 0.9 K/uL (0.7-4.9); Absolute Monocytes 0.6 K/uL (0.1-1.3); Absolute Neutrophil 4.2 K/uL (1.8-8.0); Basophils % 0.5 % (0-1.3); Eosinophils % 0.9 % (0-4.4); Hematocrit 25.1 % (36.0-45.0); Hemoglobin 8.3 g/dL (12.0-15.0); Lymphocytes % 15.7 % (15.3-44.8); MCH 28.3 pg (27.0-35.0); MCHC 32.9 g/dL (32.0-36.0); MCV 85.9 fL (80-100); MPV 7.9 fL (7.6-11.3); Monocytes % 10.8 % (3.3-12.3); Neutrophils % 72.1 % (41.7-73.7); Nucleated Red Blood Cells % 0.1 % (0-0); Platelets 222 thou/uL (152-406); RBC Red Blood Cell Count 2.92 M/uL (3.86-4.86); Red Cell Distribution Width 19.5 % (12.1-15.2)
[2025-01-17 06:49] LABS: Albumin/Globulin Ratio 0.7 (1.1-1.8); Anion Gap 8.6 mEq/L (5.0-15.0); Bilirubin Total 0.5 mg/dL (0.2-1.0); Globulin 2.9 g/dL (2.3-3.5); Potassium 3.6 mEq/L (3.5-5.1); Protein, Total 4.9 g/dL (6.4-8.2)
[2025-01-17] MEDS: METOPROLOL TAR 25 MG TAB PO SCH (09:00)
[2025-01-17] MEDS: COLLAGENASE 30 GM OINTMENT TOP SCH (09:00)
[2025-01-17] MEDS: KCL 20 MEQ/100 mL IVPB 100 ML IV ONE (09:58)
[2025-01-17] MEDS: KCL 20 MEQ/100 mL IVPB 20 MEQ/100 ML BAG IV SCH (09:59)
--- NOTE | 2025-01-17 15:30 | P.PN ---
Date of Service: 01/17/25 Subjective: She is arousable and answers basic questions. He is oriented to herself. She has been sleeping majority of the day. Review of Systems is unable to be obtained Physical Examination - Physical Exam General: In no apparent distress HEENT: Atraumatic, Normocephalic Neck: Supple Respiratory: Clear to auscultation bilaterally Cardiovascular: No edema Capillary refill: <2 Seconds Gastrointestinal: Normal bowel sounds, Soft and benign Musculoskeletal: No clubbing Integumentary: Warmth (Bilateral lower extremity redness) Neurological: Normal strength at 5/5 x4 extr Lymphatics: No axilla or inguinal lymphadenopathy - Studies Laboratory Data (last 24 hrs) 01/16/25 01/16/25 01/16/25 13:29 13:29 13:29 WBC 6.50 Hgb 10.5 L Hct 31.7 L Plt Count 252 PT 16.2 H INR 1.45 Sodium 141 Potassium 3.8 BUN 30 H Creatinine 2.04 H Glucose 79 Magnesium 1.4 L Total Bilirubin 0.5 AST 25 ALT 46 Alkaline Phosphatase 126 H Triglycerides 69 Cholesterol 112 HDL Cholesterol 56 Cholesterol/HDL Ratio 2.00 Assessment and Plan - Plan Acute metabolic encephalopathy Stage IV sacral ulcer Acute kidney injury Generalized weakness Dehydration Generalized weakness CHF Colonic mass (7x4 cm) Hypothyroid Atrial fibrillation Presence of cardiac pacemaker Anemia Stasis dermatitis Continue IV fluid, acute kidney injury improving Obtain renal ultrasound History of indwelling catheter and sacral ulcer Elevated CRP Procalcitonin within normal limits Start IV levothyroxine as TSH is significantly elevated Blood cultures with no growth to date Wound culture pending, reviewed images Urinalysis within normal limit Head and neck CT within normal limit PT/OT Continue metoprolol DVT prophylaxis with heparin Disposition: May benefit from hospice consultation. Will discuss with daughter - Advance Directives Does patient have a Living Will: No Does patient have a Durable POA for Healthcare: No
[2025-01-17] MEDS: HYDRALAZINE HCL 20 MG/ML VIAL IV ONE (16:04)
[2025-01-18] MEDS: LEVOTHYROXINE SODIUM 100 MCG VIAL IV SCH (06:25)
[2025-01-18] MEDS: SODIUM CHLORIDE 0.9% 10ML INJ IV SCH (06:25)
[2025-01-18 07:49] LABS: Absolute Eosinophils 0.1 K/uL (0-0.5); Absolute Lymphocytes (CBC) 1.6 K/uL (0.7-4.9); Absolute Monocytes 0.9 K/uL (0.1-1.3); Absolute Neutrophil 3.3 K/uL (1.8-8.0); Basophils % 0.7 % (0-1.3); Eosinophils % 2.5 % (0-4.4); Hematocrit 25.7 % (36.0-45.0); Hemoglobin 8.4 g/dL (12.0-15.0); Lymphocytes % 27.4 % (15.3-44.8); MCH 28.6 pg (27.0-35.0); MCHC 32.8 g/dL (32.0-36.0); MCV 87.2 fL (80-100); MPV 8.1 fL (7.6-11.3); Monocytes % 14.5 % (3.3-12.3); Neutrophils % 54.9 % (41.7-73.7); Platelets 194 thou/uL (152-406); RBC Red Blood Cell Count 2.95 M/uL (3.86-4.86); Red Cell Distribution Width 19.9 % (12.1-15.2)
[2025-01-18 08:08] LABS: Albumin/Globulin Ratio 0.6 (1.1-1.8); Anion Gap 9.5 mEq/L (5.0-15.0); Bilirubin Total 0.5 mg/dL (0.2-1.0); Globulin 3.3 g/dL (2.3-3.5); Potassium 3.5 mEq/L (3.5-5.1); Protein, Total 5.3 g/dL (6.4-8.2)
[2025-01-18] MEDS: D5W 1,000 ML IV SCH (10:47)
--- NOTE | 2025-01-18 11:48 | EKG ---
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: MEASUREMENT RESULTS: Intervals: Rate: 63 ID: QRSD: [id number] QT: 368 QTc: 376 [place]: P: ID: QRS: [id number] T: 234 INTERPRETIVE STATEMENTS: Junctional rhythm with frequent ventricular-paced complexes and premature supraventricular complexes ST & T wave abnormality, consider inferior ischemia ST & T wave abnormality, consider anterolateral ischemia Abnormal ECG Compared to ECG 01/04/2025 19:05:03 Junctional rhythm now present ST (T wave) deviation now present Possible ischemia now present Sinus tachycardia no longer present Ventricular premature complex(es) no longer present Short ID interval no longer present Myocardial infarct finding no longer present Electronically Signed On 01-18-25 11:43:35 CDT by Naeem Pelayo
--- NOTE | 2025-01-18 12:17 | P.PN ---
Date of Service: 01/18/25 Subjective: She is arousable and answers basic questions. He is oriented to herself. She has been sleeping majority of the day. Review of Systems is unable to be obtained Physical Examination - Physical Exam General: In no apparent distress HEENT: Atraumatic, Normocephalic Neck: Supple Respiratory: Clear to auscultation bilaterally Cardiovascular: No edema Capillary refill: <2 Seconds Gastrointestinal: Normal bowel sounds, Soft and benign Musculoskeletal: No clubbing Integumentary: Warmth (Bilateral lower extremity redness) Neurological: Normal strength at 5/5 x4 extr Lymphatics: No axilla or inguinal lymphadenopathy - Studies Laboratory Data (last 24 hrs) 01/16/25 01/16/25 01/16/25 13:29 13:29 13:29 WBC 6.50 Hgb 10.5 L Hct 31.7 L Plt Count 252 PT 16.2 H INR 1.45 Sodium 141 Potassium 3.8 BUN 30 H Creatinine 2.04 H Glucose 79 Magnesium 1.4 L Total Bilirubin 0.5 AST 25 ALT 46 Alkaline Phosphatase 126 H Triglycerides 69 Cholesterol 112 HDL Cholesterol 56 Cholesterol/HDL Ratio 2.00 Assessment and Plan - Plan Acute metabolic encephalopathy Hyponatremia Cognitive decline / dementia Stage IV sacral ulcer Shoulder wound Acute kidney injury Generalized weakness Dehydration Generalized weakness CHF Colonic mass (7x4 cm) Hypothyroid Atrial fibrillation Presence of cardiac pacemaker Anemia Stasis dermatitis Hypokalemia Switch to D5W to help with hyponatremia Renal ultrasound reviewed and no acute process History of indwelling catheter and sacral ulcer Creatinine improving Procalcitonin within normal limits Continue IV levothyroxine as TSH is significantly elevated Blood cultures with no growth to date Wound culture pending, reviewed images Urinalysis within normal limit Head and neck CT within normal limit PT/OT Continue metoprolol Replace potassium Consult wound healing center Now on air-fluidized bed DVT prophylaxis with heparin Disposition: May benefit from hospice consultation. Will discuss with daughter - Advance Directives Does patient have a Living Will: No Does patient have a Durable POA for Healthcare: No
[2025-01-18] MEDS: POTASSIUM CL SA 10 MEQ TAB PO ONE (13:14)
[2025-01-18] MEDS: ZINC OXIDE 20% OINTMENT 60gm TOP SCH (13:43)
[2025-01-18] MEDS: JUVEN PACKET PO SCH (21:00)
[2025-01-18 23:45] LABS: Anion Gap 8.6 mEq/L (5.0-15.0); Potassium 3.6 mEq/L (3.5-5.1)
[2025-01-19] MEDS: POTASSIUM CL SA 10 MEQ TAB PO ONE (00:13)
--- NOTE | 2025-01-19 12:23 | P.PN ---
Date of Service: 01/19/25 Subjective: Daughter at bedside. She is doing much better today. Alert and oriented to self and place. We discussed going home with home health. He is oriented to herself. Denies fevers and chills Review of Systems 10 point review of systems otherwise negative except as mentioned in HPI Physical Examination - Physical Exam General: In no apparent distress HEENT: Atraumatic, Normocephalic Neck: Supple Respiratory: Clear to auscultation bilaterally Cardiovascular: No edema Capillary refill: <2 Seconds Gastrointestinal: Normal bowel sounds, Soft and benign Musculoskeletal: No clubbing Integumentary: Warmth (Bilateral lower extremity redness) Neurological: Normal strength at 5/5 x4 extr Lymphatics: No axilla or inguinal lymphadenopathy - Studies Laboratory Data (last 24 hrs) 01/16/25 01/16/25 01/16/25 13:29 13:29 13:29 WBC 6.50 Hgb 10.5 L Hct 31.7 L Plt Count 252 PT 16.2 H INR 1.45 Sodium 141 Potassium 3.8 BUN 30 H Creatinine 2.04 H Glucose 79 Magnesium 1.4 L Total Bilirubin 0.5 AST 25 ALT 46 Alkaline Phosphatase 126 H Triglycerides 69 Cholesterol 112 HDL Cholesterol 56 Cholesterol/HDL Ratio 2.00 Assessment and Plan - Plan Acute metabolic encephalopathy Cognitive decline / dementia Hypothermia Stage IV sacral ulcer Shoulder wound Acute kidney injury Generalized weakness Dehydration Generalized weakness CHF Colonic mass (7x4 cm) Hypothyroid Atrial fibrillation Presence of cardiac pacemaker Anemia Stasis dermatitis Hyponatremia resolved Acute metabolic encephalopathy improving with hydration and medication administration Stop D5W Currently on Bear hugger to maintain temperature. Check a.m. cortisol History of indwelling catheter and sacral ulcer Creatinine continues to improve, Renal ultrasound reviewed and no acute process Continue IV levothyroxine as TSH is significantly elevated Blood cultures with no growth to date Wound culture pending, reviewed images Urinalysis within normal limit Head and neck CT within normal limit PT/OT Continue metoprolol Hypokalemia resolved Consult wound healing center Now on air-fluidized bed DVT prophylaxis with heparin Disposition: Home with home health - Advance Directives Does patient have a Living Will: No Does patient have a Durable POA for Healthcare: yes
[2025-01-20 00:26] LABS: C.diff Antigen/Toxin Ag neg : Tox neg (NEG : NEG); CDIFF INTERNAL NEG CONTROL White Background (WHITE BKGD); STOOL CONSISTENCY Liquid/Semi-Solid
--- NOTE | 2025-01-20 13:17 | RAD REPORT ---
Procedure: Chest Single View HISTORY: Cough COMPARISON: December 2024 FINDINGS: Mild bilateral pulmonary opacities Marked cardiomegaly. No significant pleural effusion. Pacemaker leads in place. IMPRESSION: These findings may indicate mild CHF
--- NOTE | 2025-01-20 15:31 | P.PN ---
Date of Service: 01/20/25 Subjective: Sleeping comfortably in bed. Vitals are stable. No acute events overnight. Review of Systems 10 point review of systems otherwise negative except as mentioned in HPI Physical Examination - Physical Exam General: In no apparent distress HEENT: Atraumatic, Normocephalic Neck: Supple Respiratory: Clear to auscultation bilaterally Cardiovascular: No edema Capillary refill: <2 Seconds Gastrointestinal: Normal bowel sounds, Soft and benign Musculoskeletal: No clubbing Integumentary: Warmth (Bilateral lower extremity redness) Neurological: Normal strength at 5/5 x4 extr Lymphatics: No axilla or inguinal lymphadenopathy - Studies Laboratory Data (last 24 hrs) 01/16/25 01/16/25 01/16/25 13:29 13:29 13:29 WBC 6.50 Hgb 10.5 L Hct 31.7 L Plt Count 252 PT 16.2 H INR 1.45 Sodium 141 Potassium 3.8 BUN 30 H Creatinine 2.04 H Glucose 79 Magnesium 1.4 L Total Bilirubin 0.5 AST 25 ALT 46 Alkaline Phosphatase 126 H Triglycerides 69 Cholesterol 112 HDL Cholesterol 56 Cholesterol/HDL Ratio 2.00 Assessment and Plan - Plan Acute metabolic encephalopathy Cognitive decline / dementia Hypothermia Stage IV sacral ulcer Shoulder wound Acute kidney injury Generalized weakness Dehydration Generalized weakness CHF Colonic mass (7x4 cm) Hypothyroid Atrial fibrillation Presence of cardiac pacemaker Anemia Stasis dermatitis Hyponatremia resolved Acute metabolic encephalopathy improving with hydration and medication administration Stop D5W Currently on Bear hugger to maintain temperature. Check a.m. cortisol History of indwelling catheter and sacral ulcer Creatinine continues to improve, Renal ultrasound reviewed and no acute process Continue IV levothyroxine as TSH is significantly elevated Blood cultures with no growth to date Wound culture pending, reviewed images Urinalysis within normal limit Head and neck CT within normal limit PT/OT Continue metoprolol Hypokalemia resolved Consult wound healing center Now on air-fluidized bed DVT prophylaxis with heparin Disposition: Home with home health - Advance Directives Does patient have a Living Will: No Does patient have a Durable POA for Healthcare: yes
[2025-01-20] MEDS: FUROSEMIDE 40 MG/4 ML VIAL IV ONE (23:08)
--- NOTE | 2025-01-21 11:35 | P.PN ---
Date of Service: 01/21/25 Subjective: Doing great. Elevated blood pressures overnight. feels more back to baseline. She is conversing with me in a coherent. No family at bedside today. Denies fevers and chills. No acute events overnight. Review of Systems 10 point review of systems otherwise negative except as mentioned in HPI Physical Examination - Physical Exam General: In no apparent distress HEENT: Atraumatic, Normocephalic Neck: Supple Respiratory: Clear to auscultation bilaterally Cardiovascular: No edema Capillary refill: <2 Seconds Gastrointestinal: Normal bowel sounds, Soft and benign Musculoskeletal: No clubbing Integumentary: Warmth (Bilateral lower extremity redness) Neurological: Normal strength at 5/5 x4 extr Lymphatics: No axilla or inguinal lymphadenopathy - Studies Laboratory Data (last 24 hrs) 01/16/25 01/16/25 01/16/25 13:29 13:29 13:29 WBC 6.50 Hgb 10.5 L Hct 31.7 L Plt Count 252 PT 16.2 H INR 1.45 Sodium 141 Potassium 3.8 BUN 30 H Creatinine 2.04 H Glucose 79 Magnesium 1.4 L Total Bilirubin 0.5 AST 25 ALT 46 Alkaline Phosphatase 126 H Triglycerides 69 Cholesterol 112 HDL Cholesterol 56 Cholesterol/HDL Ratio 2.00 Assessment and Plan - Plan Acute metabolic encephalopathy Cognitive decline / dementia Hypothermia Stage IV sacral ulcer Shoulder wound Acute kidney injury Generalized weakness Dehydration Generalized weakness CHF Colonic mass (7x4 cm) Hypothyroid Atrial fibrillation Presence of cardiac pacemaker Anemia Stasis dermatitis Hyponatremia resolved Acute metabolic encephalopathy resolved Stop D5W Currently on Bear hugger to maintain temperature. Check a.m. cortisol History of indwelling catheter and sacral ulcer Creatinine continues to improve, Renal ultrasound reviewed and no acute process Continue IV levothyroxine as TSH is significantly elevated Blood cultures with no growth to date Wound culture growing Enterococcus, reviewed sensitivities. Urinalysis within normal limit Head and neck CT within normal limit PT/OT Continue metoprolol Hypokalemia resolved Consult wound healing center Now on air-fluidized bed DVT prophylaxis with heparin Disposition: Home with home health - Advance Directives Does patient have a Living Will: No Does patient have a Durable POA for Healthcare: yes
[2025-01-22 06:44] LABS: Absolute Basophils 0.1 K/uL (0-0.5); Absolute Eosinophils 0.3 K/uL (0-0.5); Absolute Lymphocytes (CBC) 1.1 K/uL (0.7-4.9); Absolute Monocytes 0.7 K/uL (0.1-1.3); Absolute Neutrophil 2.5 K/uL (1.8-8.0); Basophils % 1.2 % (0-1.3); Eosinophils % 5.8 % (0-4.4); Hematocrit 26.8 % (36.0-45.0); Hemoglobin 8.9 g/dL (12.0-15.0); Lymphocytes % 24.9 % (15.3-44.8); MCH 28.8 pg (27.0-35.0); MCV 87.1 fL (80-100); Monocytes % 14.7 % (3.3-12.3); Neutrophils % 53.4 % (41.7-73.7); Nucleated Red Blood Cells % 0.1 % (0-0); Platelets 117 thou/uL (152-406); RBC Red Blood Cell Count 3.08 M/uL (3.86-4.86); Red Cell Distribution Width 19.7 % (12.1-15.2)
[2025-01-22 06:52] LABS: Anion Gap 8.6 mEq/L (5.0-15.0); Potassium 3.6 mEq/L (3.5-5.1)
--- NOTE | 2025-01-22 07:00 | P.PN ---
Date of Service: 01/22/25 subjective Ambulated with therapy today, PT eval for DC planning Toussaint catheter placed for sacral ulcer Wound care following sacral ulcer, shoulder wounds, being followed by surgery Dr. Parra Review of Systems 10 point review of systems otherwise negative except as mentioned in HPI Physical Examination - Physical Exam vital signs reviewed General: Afebrile, HEENT: Atraumatic, Normocephalic Neck: Supple Respiratory: Clear to auscultation bilaterally Cardiovascular: No edema Capillary refill: <2 Seconds Gastrointestinal: Normal bowel sounds, Soft and benign Musculoskeletal: No clubbing Integumentary: Stage IV sacral ulcer, shoulder pressure ulcer, (lower extremity redness) Neurological: Normal strength at 5/5 x4 extr Lymphatics: No axilla or inguinal lymphadenopathy Assessment and Plan - Plan Acute metabolic encephalopathy Cognitive decline / dementia Generalized weakness Fall precautions, supportive care Head and neck CT within normal limit PT/OT Blood cultures with no growth to date Wound culture growing Enterococcus, reviewed sensitivities. Urinalysis within normal limit Hypothermia Currently on Bear hugger to maintain temperature as needed. a.m. cortisol Urinary retention Toussaint catheter bedside drain I&O Stage IV sacral ulcer Shoulder wound. Stasis dermatitis Wound care followed by Dr. Parra air-fluidized bed indwelling catheter placed for sacral ulcer wound healing center with Dr. Parra Acute kidney injury improved Hyponatremia resolved Dehydration Hypokalemia resolved Creatinine continues to improve, Renal ultrasound reviewed and no acute process Trend electrolytes replace as needed Generalized weakness Colonic mass (7x4 cm) Hypothyroid Continue IV levothyroxine as TSH is significantly elevated Atrial fibrillation Presence of cardiac pacemaker CHF Resume home meds Continue metoprolol Anemia Trend H&H Transfuse less than 7 DVT prophylaxis with heparin Disposition: Home with home health versus inpatient rehab - Advance Directives Does patient have a Living Will: No Does patient have a Durable POA for Healthcare: yes
[2025-01-22] MEDS: POTASSIUM CL SA 10 MEQ TAB PO ONE ×2 (10:30→10:39)
[2025-01-22] MEDS: LINEZOLID 600 MG IVPB 600 MG/300 ML BAG IV SCH (15:03)
--- NOTE | 2025-01-23 00:07 | P.CNS ---
Date of Consult: 01/22/25 Reason for consult: wounds to sacrum History of Present Illness: 79-year-old female with a past medical history of A-fib, anemia, CHF, and presence of pacemaker was brought to ER by her daughter in law who said she had altered mental status for 2 days. other symptoms includes increasing hallucination, insomnia, no appetite and worse cognition. Pt was given rocephin at the ER but she is not on abx anymore. She has a sacral decubitus ulcer. culture was collected on 01/17/25 and growing enterococcus faecium and faecalis. Pt is alert and responding to verbal conversation today during PE. Allergies No Known Allergies Allergy (Verified 12/06/24 01:26) Current Medications Acetaminophen (Acetaminophen 650mg/Rect Supp) 650 mg [place] Q6HP PRN PRN Reason: Pain scale 5-7 (Moderate) Albuterol Sulfate (Albuterol 2.5 Mg/3 Ml Neb Margret) 2.5 mg NEB [id number] PENDING SALE TO [facility] Last Admin: 01/22/25 13:53 Dose: 2.5 mg Collagenase (Collagenase 30 Gm Ointment) 1 appl TOP DAILY PENDING SALE TO [facility] Last Admin: 01/22/25 10:42 Dose: 1 appl Linezolid (Zyvox 600 Mg/300 Ml Ivpb (Premix)) 600 mg in 300 mls @ 300 mls/hr IV Q12HR PENDING SALE TO [facility]; Protocol Last Admin: 01/22/25 20:18 Dose: 300 mls L-Arginine/L-Glutamine/HMB (Praful Packet) 1 pkt PO BID PENDING SALE TO [facility] Last Admin: 01/22/25 20:18 Dose: 1 pkt Levothyroxine Sodium (Levothyroxine Sodium 100 Mcg Vial) 40 mcg IV [id number] PENDING SALE TO [facility] Last Admin: 01/22/25 05:58 Dose: 40 mcg Metoprolol Tartrate (Metoprolol Tar 25 Mg Tab) 25 mg PO DAILY PENDING SALE TO [facility] Last Admin: 01/22/25 10:41 Dose: 25 mg Ondansetron HCl (Ondansetron 4 Mg/2 Ml Vial) 4 mg IV Q6HP PRN PRN Reason: NAUSEA / VOMITING Sodium Chloride (Sodium Chloride 0.9% 10ml Inj) 5 ml IV [id number] PENDING SALE TO [facility] Last Admin: 01/22/25 05:58 Dose: 5 ml Zinc Oxide (Zinc Oxide 20% Ointment 60gm) 1 appl TOP BID PENDING SALE TO [facility] Last Admin: 01/22/25 20:18 Dose: 1 appl - Past Medical/Surgical History Diabetic: No -: Afib on Eliquis -: CHF-chronic diastolic -: Htn -: DVT -: Hypothyroidism -: Pulmonary hypertension Psychosocial/ Personal History: Lives at home with her daughter - Family History Father -: Hypertension - Social History Alcohol use: No CD- Drugs: No Caffeine use: Yes Review of Systems please see hpi Physical Examination - Physical Exam General: In no apparent distress HEENT: Atraumatic, Normocephalic Neck: Supple, no JVD Respiratory: Clear to auscultation bilaterally Cardiovascular: No edema Capillary refill: <2 Seconds Neuro: aox3 Gastrointestinal: Normal bowel sounds, Soft, NT GI: Toussaint catheter Musculoskeletal: No clubbing Integumentary: sacral decubitus ulcer, Bilateral lower extremity redness) - Studies Laboratory Data (last 24 hrs) wbc 4.6, Hgb 8.9, platelet 117 , bun 35, cr 0.99 Microbiology 01/16/25 13:37 Blood - Blood Aerobic Blood Culture - Final No growth in 5 days. 01/16/25 13:37 Blood - Blood Anaerobic Blood Culture - Final No growth in 5 days. 01/16/25 13:29 Blood - Blood Aerobic Blood Culture - Final No growth in 5 days. 01/16/25 13:29 Blood - Blood Anaerobic Blood Culture - Final No growth in 5 days. 01/17/25 wound sacral: enterococcus faecium and faecalis Assessment and Plan 1. sacrococcygeal ulcer unstageable 2. thrombocytopenia 3. moderate protein calorie malnourishment started patient on linezolid. sacral wound growing enterococcus faecium and faecalis. continue with wound and supportive care per dr elias monitor for sign of infection with wbc and fever trend case discussed with Dr Tovar and in agreement thank you for the consult
[2025-01-23 04:54] LABS: Absolute Eosinophils 0.3 K/uL (0-0.5); Absolute Lymphocytes (CBC) 1.3 K/uL (0.7-4.9); Absolute Monocytes 0.6 K/uL (0.1-1.3); Absolute Neutrophil 2.6 K/uL (1.8-8.0); Basophils % 0.8 % (0-1.3); Eosinophils % 5.4 % (0-4.4); Hemoglobin 8.6 g/dL (12.0-15.0); Lymphocytes % 26.2 % (15.3-44.8); MCHC 33.1 g/dL (32.0-36.0); MCV 87.4 fL (80-100); MPV 8.8 fL (7.6-11.3); Monocytes % 12.5 % (3.3-12.3); Neutrophils % 55.1 % (41.7-73.7); Nucleated Red Blood Cells % 0.1 % (0-0); Platelets 107 thou/uL (152-406); RBC Red Blood Cell Count 2.97 M/uL (3.86-4.86); Red Cell Distribution Width 20.1 % (12.1-15.2)
[2025-01-23 05:02] LABS: Anion Gap 7.1 mEq/L (5.0-15.0); Magnesium 1.6 mg/dL (1.6-2.4); Phosphorus 2.6 mg/dL (2.5-4.9); Potassium 4.1 mEq/L (3.5-5.1)
[2025-01-23 05:49] LABS: Anisocytosis 1+; Blood Morphology Comment NOTED (NOT SEEN); Microcytosis 1+; Platelet Estimate ADEQ; White Blood Cell Scan OK (OK)
[2025-01-23] MEDS: MAGNESIUM SULFATE 1 gm IVPB 1 GM/100 ML BAG IV ONE ×2 (10:30→10:33)
--- NOTE | 2025-01-23 10:41 | P.PN ---
Date of Service: 01/23/25 subjective Afebrile overnight, pain controlled with as needed analgesia Review of Systems 10 point review of systems otherwise negative except as mentioned in HPI Physical Examination - Physical Exam vital signs reviewed General: alert, no acute distress noted, HEENT: Atraumatic, Neck: Supple, JVD not distended Respiratory: Equal, unlabored respiration Cardiovascular: Regular rate/rhythm, Capillary refill: <2 Seconds Gastrointestinal: Normal bowel sounds,+BS Musculoskeletal: generalized weakness Integumentary: Stage IV sacral ulcer, shoulder pressure ulcer, (lower extremity redness) Neurological: Normal strength at 5/5 x4 extr Assessment and Plan - Plan Acute metabolic encephalopathy improving Cognitive decline / dementia Generalized weakness Fall precautions, supportive care Head and neck CT within normal limit PT/OT Blood cultures with no growth to date Wound culture growing Enterococcus, reviewed sensitivities. Urinalysis within normal limit PT eval Hypothermia Currently on Bear hugger to maintain temperature as needed. a.m. cortisol Stage IV sacral ulcer Shoulder wound. Stasis dermatitis Wound care followed by Dr. Parra Infectious disease consulted-started on linezolid. sacral wound growing enteroco ccus faecium and faecalis.started on Zyvox air-fluidized bed indwelling catheter placed for sacral ulcer wound healing center with Dr. Parra Acute kidney injury improved Hyponatremia resolved Dehydration improved Hypokalemia resolved Creatinine continues to improve, Renal ultrasound reviewed and no acute process Trend electrolytes replace as needed BUN 23->21->35-31 CR1.65->1.45->.099->098 Hypothyroid Continue IV levothyroxine as TSH is significantly elevated repeat TSH in am Atrial fibrillation Presence of cardiac pacemaker CHF Resume home meds Continue metoprolol CXR Mild bilateral pulmonary opacities, Marked cardiomegaly.findings may indicate mild CHF Anemia Trend H&H Transfuse less than 7 10.5->8.3->8.9->8.6-> DVT prophylaxis with heparin Disposition: Home with home health versus inpatient rehab - Advance Directives Does patient have a Living Will: No Does patient have a Durable POA for Healthcare: yes
[2025-01-23] MEDS: LINEZOLID 600 MG TAB PO SCH (20:26)
--- NOTE | 2025-01-23 20:47 | PN ---
Subjective: The patient lying in bed, not in any acute distress. Somnolent. Denies any chest pain, abdominal pain, constipation, or diarrhea. Objective: Vital Signs: Temperature 96, pulse 62, respirations 12, blood pressure 124/58. Lungs: Basal crackles. Heart: S1, S2. Regular. Abdomen: Soft, nontender. Bowel sounds present. Extremities: Trace edema. Wound noted. Laboratory Data: Shows WBC 4.8, hemoglobin 8.6, platelets are 107, BUN is 34, creatinine 0.9. Medications: Includes Zyvox. Patient's wound cultures growing Enterococcus faecium and faecalis. Assessment And Plan: Sacral stage IV wound infected with Enterococcus faecalis and faecium, currentl y on Zyvox. Concern regarding thrombocytopenia, if it goes below 100, we will discontinue Zyvox and switch patient to local treatment. Consider alternating the patient emlo-kc-djel every 2 hours. Anemia of chronic disease. Thrombocytopenia, most likely secondary to Zyvox. Moderate protein-calorie malnourishment. Chronic kidney disease. Monitor signs of infection with WBC and fever trends. No other recommendation. Continue supportive care and wound care. We will follow the patient as needed. NF/MODL Voice ID: [id number] Report ID: [id number]
[2025-01-24 07:21] LABS: Absolute Eosinophils 0.2 K/uL (0-0.5); Absolute Lymphocytes (CBC) 0.9 K/uL (0.7-4.9); Absolute Monocytes 0.4 K/uL (0.1-1.3); Absolute Neutrophil 2.5 K/uL (1.8-8.0); Basophils % 0.7 % (0-1.3); Eosinophils % 5.5 % (0-4.4); Hematocrit 27.9 % (36.0-45.0); Hemoglobin 9.2 g/dL (12.0-15.0); Lymphocytes % 22.9 % (15.3-44.8); MCH 28.5 pg (27.0-35.0); MCHC 32.9 g/dL (32.0-36.0); MCV 86.8 fL (80-100); MPV 8.5 fL (7.6-11.3); Monocytes % 10.3 % (3.3-12.3); Neutrophils % 60.6 % (41.7-73.7); Platelets 118 thou/uL (152-406); RBC Red Blood Cell Count 3.22 M/uL (3.86-4.86); Red Cell Distribution Width 19.9 % (12.1-15.2)
[2025-01-24 08:01] VITALS: O2SAT 95
[2025-01-24 08:05] LABS: Albumin/Globulin Ratio 0.6 (1.1-1.8); Anion Gap 7.1 mEq/L (5.0-15.0); Bilirubin Total 0.4 mg/dL (0.2-1.0); Globulin 3.5 g/dL (2.3-3.5); Magnesium 1.9 mg/dL (1.6-2.4); Phosphorus 2.7 mg/dL (2.5-4.9); Potassium 4.1 mEq/L (3.5-5.1); Protein, Total 5.5 g/dL (6.4-8.2); Troponin High Sensitivity 14.5 pg/mL (<58.9)
[2025-01-24 08:07] LABS: Thyroid Stimulating Hormone 6.29 uIU/mL (0.358-3.740)
--- NOTE | 2025-01-24 08:39 | P.PN ---
Date of Service: 01/24/25 subjective Review of Systems 10 point review of systems otherwise negative except as mentioned in HPI Physical Examination - Physical Exam vital signs reviewed General: alert, afebrile HEENT: Atraumatic, Neck: Supple, Respiratory: Diminished, unlabored Cardiovascular: Regular rate/rhythm, Capillary refill: <2 Seconds Gastrointestinal: Soft, nontender Musculoskeletal: generalized weakness Integumentary: sacral ulcer, shoulder pressure ulcer, (lower extremity redness) Neurological: Normal strength at 5/5 x4 extr Assessment and Plan - Plan Acute metabolic encephalopathy improving Cognitive decline / dementia Generalized weakness Fall precautions, supportive care Head and neck CT within normal limit PT/OT Blood cultures with no growth to date Wound culture growing Enterococcus, reviewed sensitivities. Urinalysis within normal limit PT eval Hypothermia Currently on Bear hugger to maintain temperature as needed. cortisol 16.87 sacral ulcer Shoulder wound. Stasis dermatitis Wound care followed by Dr. Parra Infectious disease consulted-started on linezolid. sacral wound growing enterococcus faecium and faecalis.started on Zyvox air-fluidized bed indwelling catheter placed for sacral ulcer wound healing center with Dr. Parra Acute kidney injury improved Hyponatremia resolved Dehydration improved Hypokalemia resolved Creatinine continues to improve, Renal ultrasound reviewed and no acute process Trend electrolytes replace as needed BUN 23->21->35-31 CR1.65->1.45->.099->098 Hypothyroid Continue IV levothyroxine as TSH is significantly elevated repeat TSH in am TSH 6.290 high, free T41.66, Atrial fibrillation Presence of cardiac pacemaker CHF Resume home meds Continue metoprolol CXR Mild bilateral pulmonary opacities, Marked cardiomegaly.findings may indicate mild CHF Anemia Trend H&H Transfuse less than 7 10.5->8.3->8.9->8.6-> 9.2 Heparin PF4 IgG antibody ordered to eval for HIT DVT prophylaxis with heparin Disposition: Home with home health versus inpatient rehab - Advance Directives Does patient have a Living Will: No Does patient have a Durable POA for Healthcare: yes
[2025-01-24 12:50] VITALS: TEMP 98.1
--- NOTE | 2025-01-24 13:00 | P.DS ---
Admission Date: 01/16/25 Discharge Date: 01/24/25 Disposition: DC HOME/HOME HEALTH CARE Discharge Condition: GOOD Brief History of Present Illness: 79-year-old female with a past medical history of A-fib, anemia, CHF, presence of pacemaker presenting with altered mental status for the last 2 days. She is accompanied by her kvbhpkms-vz-frd who states the patient lives very close to her. Over the last few days they have noticed increasing hallucination, in somnia, and worse cognition. The eennfxey-mf-rsh denies any fevers, cough, malodorous urine. 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 In addition patient has not been eating or drinking. The doprtgwr-xa-fgz is very concerned - Physical Exam General: In no apparent distress HEENT: Atraumatic, Normocephalic Neck: Supple Respiratory: Clear to auscultation bilaterally Cardiovascular: No edema Capillary refill: <2 Seconds Gastrointestinal: Normal bowel sounds, Soft and benign Musculoskeletal: No clubbing Integumentary: Warmth (Bilateral lower extremity redness) Neurological: Normal strength at 5/5 x4 extr Lymphatics: No axilla or inguinal lymphadenopathy Hospital Course: 79-year-old female with a past medical history of A-fib, anemia, CHF, presence of pacemaker presenting with altered mental status for the last 2 days. She is accompanied by her ogudvicx-al-wca who states the patient lives very close to her. Over the last few days they have noticed increasing hallucination, insomnia, and worse cognition. The jpugixfe-ev-zfp denies any fevers, cough, malodorous urine. She was admitted for metabolic encephalopathy, hyponatremia, acute kidney injury, dehydration. Treated with IV fluids, she has a sacral ulcer, present on admission, ulcer on her shoulder, treated by Dr. Parra,. Tolerating diet, stable to discharge home with home health with wound care, custodial, Shoulder, cleanse wound with Vashe, wet-to-dry dressing, per surgery Sacral stage III pressure ulcer- cleanse with vashe. Apply Santyl, gauze, foam daily and PRN. Apply zinc oxide angelo wound as well. Follow-up with the wound care clinic on Wednesday, or Wednesday per Dr. Vale Sacral wound, dressing as per surgery Dr. Parra seen by infectious disease , No leukocytosis, sacral wound enteroviral coccus faecalis Mild hypothermia, treated with Mary hugger in patient Cognitive decline, dementia, supportive care, fall precautions hypothyroidism resume thyroid medication after discharge Anemia, follow-up with PCP PCP in 1 week for CBC, BMP, follow-up with thyroid evaluation after discharge Head and neck CT within normal limit PT/OT seen during inpatient Blood cultures with no growth to date Wound culture growing Enterococcus, reviewed sensitivities. Suspected colonization, no elevated WBCs, fever Urinalysis within normal limit INSTRUCTIONS: Physician Discharge Instructions: -Follow-up with PCP in 1 to 2 weeks -Please call Dr. Mcfarland at [phone] if any questions regarding hospital stay -Please call nursing station at [phone] if any nursing or medication questions -Return to the emergency room if symptoms worsen Diet: ADA, low sodium Activity: Fall precautions Vital Signs/Physical Exam: Temp Pulse Resp BP Pulse Ox 98.1 F 64 18 130/60 95 01/24/25 12:00 01/24/25 12:00 01/24/25 12:00 01/24/25 12:00 01/24/25 12:00 Laboratory Data at Discharge: WBC 4.10 thou/uL (4.3-10.9) L 01/24/25 07:10 Hgb 9.2 g/dL (12.0-15.0) L 01/24/25 07:10 Hct 27.9 % (36.0-45.0) L 01/24/25 07:10 Plt Count 118 thou/uL (152-406) L 01/24/25 07:10 PT 16.2 SECONDS (10-13.0) H 01/16/25 13:29 INR 1.45 01/16/25 13:29 Sodium 144 mEq/L (136-145) 01/24/25 07:10 Potassium 4.1 mEq/L (3.5-5.1) 01/24/25 07:10 BUN 33 mg/dL (7-18) H 01/24/25 07:10 Creatinine 0.91 mg/dL (0.55-1.02) 01/24/25 07:10 Glucose 73 mg/dL (74-106) L 01/24/25 07:10 Phosphorus 2.7 mg/dL (2.5-4.9) 01/24/25 07:10 Magnesium 1.9 mg/dL (1.6-2.4) 01/24/25 07:10 Total Bilirubin 0.4 mg/dL (0.2-1.0) 01/24/25 07:10 AST 21 U/L (15-37) 01/24/25 07:10 ALT 30 U/L (13-56) 01/24/25 07:10 Alkaline Phosphatase 122 U/L (45-117) H 01/24/25 07:10 Triglycerides 69 mg/dL (<150) 01/16/25 13:29 Cholesterol 112 mg/dL (<200) 01/16/25 13:29 HDL Cholesterol 56 mg/dL (40-60) 01/16/25 13:29 Cholesterol/HDL Ratio 2.00 01/16/25 13:29 Home Medications: Fenofibrate,Micronized [Fenofibrate] 134 mg PO DAILY 12/06/24 Levothyroxine Sodium 25 mcg PO DAILY 12/06/24 Metoprolol Tartrate 25 mg PO DAILY 12/06/24 Sildenafil Citrate 20 mg PO BID 12/06/24 Spironolactone 25 mg PO DAILY 12/06/24 Furosemide [Lasix*] 40 mg PO DAILY #30 tab 12/14/24 Collagenase [Santyl Ointment*] 1 appl TOP DAILY #30 gm 01/10/25 Hydrocodone 5/APAP 325 [[place] 5/325*] 1 tab PO Q6H PRN #15 tab 01/10/25 Nystatin Powder [Mycostatin (Powder)*] 1 appl TOP DAILY PRN #1 bottle 01/10/25 Pantoprazole [Protonix Tab*] 40 mg PO DAILYAC #30 tab 01/10/25 Zinc Oxide [Zinc Oxide 20%*] 1 appl TOP BID #1 tube 01/10/25 Praful [Praful*] 1 pkt PO BID 01/24/25 Linezolid [Zyvox*] 600 mg PO BID 10 Days #20 tab 01/24/25 New Medications: Linezolid [Zyvox*] 600 mg PO BID 10 Days #20 tab Physician Discharge Instructions: 79-year-old female with a past medical history of A-fib, anemia, CHF, presence of pacemaker presenting with altered mental status for the last 2 days. She is accompanied by her qdvjotwf-gj-xjk who states the patient lives very close to her. Over the last few days they have noticed increasing hallucination, insomnia, and worse cognition. The htudfdsw-gc-egn denies any fevers, cough, malodorous urine. She was admitted for metabolic encephalopathy, hyponatremia, acute kidney injury, dehydration. Treated with IV fluids, she has a sacral ulcer, present on admission, ulcer on her shoulder, treated by Dr. Parra,. Tolerating diet, stable to discharge home with home health with wound care, custodial, 79-year-old female with a past medical history of A-fib, anemia, CHF, presence of pacemaker presenting with altered mental status for the last 2 days. She is accompanied by her fpqljoja-nu-ars who states the patient lives very close to her. Over the last few days they have noticed increasing hallucination, insomnia, and worse cognition. The xlhsttkl-vh-xac denies any fevers, cough, malodorous urine. She was admitted for metabolic encephalopathy, hyponatremia, acute kidney injury, dehydration. Treated with IV fluids, she has a sacral ulc er, present on admission, ulcer on her shoulder, treated by Dr. Parra,. Tolerating diet, stable to discharge home with home health with wound care, custodial, Sacral stage III pressure ulcer- cleanse with vashe. Apply Santyl, gauze, foam daily and PRN. Apply zinc oxide angelo wound as well. Shoulder, cleanse wound with Vashe, wet-to-dry dressing, per surgery Follow-up with the wound care clinic on Wednesday, or Wednesday per Dr. Vale Sacral wound, dressing as per surgery Dr. Parra seen by infectious disease , No leukocytosis, sacral wound enteroviral coccus faecalis Mild hypothermia, treated with Mary hugger in patient Cognitive decline, dementia, supportive care, fall precautions hypothyroidism resume thyroid medication after discharge Anemia, follow-up with PCP PCP in 1 week for CBC, BMP, follow-up with thyroid evaluation after discharge Head and neck CT within normal limit PT/OT seen during inpatient Blood cultures with no growth to date Wound culture growing Enterococcus, reviewed sensitivities. Suspected colonization, no elevated WBCs, fever Urinalysis within normal limit INSTRUCTIONS: Physician Discharge Instructions: -Follow-up with PCP in 1 to 2 weeks -Please call Dr. Mcfarland at [phone] if any questions regarding hospital stay -Please follow-up with Dr. Parra for wound care. -Please call nursing station at [phone] if any nursing or medication questions -Return to the emergency room if symptoms worsen Diet: ADA, low sodium Activity: Fall precautions Followup: Bozena Manning NP [Primary Care Provider] - 1-2 Weeks Davin Parra MD [ACTIVE - CAN ADMIT] - Time spent managing pt's care (in minutes): 45
--- NOTE | 2025-01-24 14:35 | P.PN ---
Date of Service: 01/24/25 Subjective: The patient lying in bed, not in any acute distress. appears tired. Denies any chest pain. report had diarrhea x4 today and some abdominal cramping. Temp Pulse Resp BP Pulse Ox 98.1 F 64 18 130/60 95 01/24/25 12:00 01/24/25 12:00 01/24/25 12:00 01/24/25 12:00 01/24/25 12:00 Objective: general: appear tired and sleepy Lungs: Basal crackles. Heart: S1, S2. Regular. Abdomen: Soft, nontender. Bowel sounds present. Extremities: Trace edema. Wound noted neuro: aox3 skin: sacral decubitus ulcer, Bilateral lower extremity redness Laboratory Data: Shows WBC 4.1, hemoglobin 9.2, platelets are 118, BUN is 33, creatinine 0.91 Microbiology 01/16/25 13:37 Blood - Blood Aerobic Blood Culture - Final No growth in 5 days. 01/16/25 13:37 Blood - Blood Anaerobic Blood Culture - Final No growth in 5 days. 01/16/25 13:29 Blood - Blood Aerobic Blood Culture - Final No growth in 5 days. 01/16/25 13:29 Blood - Blood Anaerobic Blood Culture - Final No growth in 5 days. 01/17/25 wound sacral: enterococcus faecium and faecalis Assessment And Plan: 1. sacrococcygeal ulcer unstageable 2. thrombocytopenia 3. moderate protein calorie malnourishment 4. chronic kidney disease 5. diarrhea continue linezolid for 10 days. stop date february 02. sacral wound growing enterococcus faecium and faecalis. Concern regarding thrombocytopenia, if it goes below 100, we will discontinue Zyvox and switch patient to local treatment. Consider alternating the patient [id number] every 2 hours. order stool for c diff. add vancomycin PO x 10 days continue with wound and supportive care per dr elias monitor for sign of infection with wbc and fever trend case discussed with Dr Tovar and in agreement
[2025-01-24] MEDS: LACTOBACILLUS/ACIDOPHILUS TAB PO SCH (15:54)
[2025-01-24] MEDS: VANCOMYCIN HCL 125 MG CAPSULE PO SCH (17:00)
[2025-01-24 17:41] VITALS: BP 136/62
== END 2025-01-24 18:23 | disposition home health service (06) | DRG 70 ==
LOC: ER 12:24 → ERHOLD 15:41 → 2ND 16:28
PROVIDERS: ADMIT Family Medicine; ATTEND Hospitalist
PROC: 0T9B70Z Drainage of Bladder with Drainage Device, Via Natural or Artificial Opening (ICD-10-PCS; principal; 2025-01-22)
DX: G93.41 Metabolic encephalopathy (principal); L89.154 Pressure ulcer of sacral region, stage 4; I50.32 Chronic diastolic (congestive) heart failure; N17.9 Acute kidney failure, unspecified; E87.1 Hypo-osmolality and hyponatremia; E44.0 Moderate protein-calorie malnutrition; I13.0 Hypertensive heart and chronic kidney disease with heart failure and stage 1 through stage 4 chronic kidney disease, or unspecified chronic kidney disease; N18.9 Chronic kidney disease, unspecified; D63.1 Anemia in chronic kidney disease; E86.0 Dehydration; G47.00 Insomnia, unspecified; K63.9 Disease of intestine, unspecified; E87.6 Hypokalemia; E83.42 Hypomagnesemia; E03.9 Hypothyroidism, unspecified; E66.9 Obesity, unspecified; I87.2 Venous insufficiency (chronic) (peripheral); D69.59 Other secondary thrombocytopenia; T36.8X5A Adverse effect of other systemic antibiotics, initial encounter; F03.90 Unspecified dementia, unspecified severity, without behavioral disturbance, psychotic disturbance, mood disturbance, and anxiety; B95.2 Enterococcus as the cause of diseases classified elsewhere; R68.0 Hypothermia, not associated with low environmental temperature; Z95.0 Presence of cardiac pacemaker; Z11.52 Encounter for screening for COVID-19; Z68.36 Body mass index [BMI] 36.0-36.9, adult; Z79.890 Hormone replacement therapy; Z79.899 Other long term (current) drug therapy; Z86.718 Personal history of other venous thrombosis and embolism
CPT/HCPCS: 36415; 70450; 71045; 71250; 72125; 74176; 76770; 80048; 80053; 80061; 80076; 81001; 82140; 82533; 82607; 82947; 83605; 83735; 83880; 84100; 84132; 84145; 84439; 84443; 84484; 85025; 85610; 86022; 86140; 87040; 87070; 87077; 87186; 87205; 87324; 87428; 93005; 94640; 94760; 96365; 96367; 96368; 96375; 97110; 97161; 97530; 99285; A4216; J0360; J0696; J1644; J1938; J2020; J3475; J3480; J3590; J7030; J7042; J7613

== ENCOUNTER 2025-01-31 04:04 | Inpatient (IN) | payer OTHER ==
[2025-01-31 05:05] LABS: Absolute Eosinophils 0.1 K/uL (0-0.5); Absolute Lymphocytes (CBC) 0.6 K/uL (0.7-4.9); Absolute Monocytes 0.7 K/uL (0.1-1.3); Absolute Neutrophil 9.7 K/uL (1.8-8.0); Basophils % 0.3 % (0-1.3); Eosinophils % 0.9 % (0-4.4); Hematocrit 32.6 % (36.0-45.0); Hemoglobin 10.5 g/dL (12.0-15.0); Lymphocytes % 5.7 % (15.3-44.8); MCH 28.5 pg (27.0-35.0); MCHC 32.1 g/dL (32.0-36.0); MCV 88.6 fL (80-100); MPV 9.7 fL (7.6-11.3); Monocytes % 6.5 % (3.3-12.3); Neutrophils % 86.6 % (41.7-73.7); Nucleated Red Blood Cells % 0.1 % (0-0); Platelets 98 thou/uL (152-406); RBC Red Blood Cell Count 3.67 M/uL (3.86-4.86); Red Cell Distribution Width 20.4 % (12.1-15.2)
[2025-01-31 05:06] LABS: PT Prothrombin Time 13.1 SECONDS (10-13.0); PTT, Activated Partial Thromb 56.5 SECONDS (27.2-37.4); Protime INR 1.16
[2025-01-31 05:15] LABS: Albumin 2.2 g/dL (3.4-5.0); Albumin/Globulin Ratio 0.6 (1.1-1.8); Anion Gap 9.5 mEq/L (5.0-15.0); Bilirubin Total 0.3 mg/dL (0.2-1.0); Globulin 3.7 g/dL (2.3-3.5); Potassium 5.5 mEq/L (3.5-5.1); Protein, Total 5.9 g/dL (6.4-8.2)
[2025-01-31 05:19] LABS: Renal Epithelial <5 /HPF (None Seen); Specific Gravity 1.016 (1.005-1.030); Sqamous Epithelial <5 /HPF (None Seen); Transitional Epithelial <5 /HPF (None Seen); Urine Bacteria None Seen /HPF (<20); Urine Bilirubin NEGATIVE (Negative); Urine Blood Negative (Negative); Urine Clarity Turbid (Clear); Urine Color Light-Yellow (Yellow); Urine Glucose NEGATIVE (Negative); Urine Ketones NEGATIVE (Negative); Urine Micro Reflex YN NO BILL MICROSCOPIC; Urine Mucus Slight /HPF (None Seen); Urine Nitrite NEGATIVE (Negative); Urine Protein NEGATIVE (Negative); Urine RBC None Seen /HPF (None Seen); Urine Urobilinogen Normal (Normal); Urine WBC <5 /HPF (<5)
[2025-01-31 05:38] LABS: Anisocytosis 1+; Band Neutrophils 9 % (0-1); Blood Morphology Comment NOTED (NOT SEEN); Differential Total Cells Count 100; Lymphocytes 8 % (15-42); Microcytosis 1+; Monocytes 1 % (0-10); Platelet Estimate DECR; Reactive Lymphocytes 2 %; Segmented Neutrophils 80 % (40-80)
[2025-01-31 05:39] LABS: Burr Cells 2+; Ovalocytes 1+
[2025-01-31] MEDS ORDERED: CEFEPIME 2 GM VIAL ONE (05:47)
[2025-01-31] MEDS ORDERED: VANCOMYCIN 1 GM/VIAL ONE (05:47)
[2025-01-31] MEDS ORDERED: NA CHLORIDE 0.9% 500 ML ONE (05:48)
[2025-01-31] MEDS ORDERED: NA CHLORIDE 0.9% 100 ML ONE (05:48)
[2025-01-31] MEDS ORDERED: ALBUMIN HUMAN 25% 100 ML IV ONE (06:06)
--- NOTE | 2025-01-31 06:18 | RAD REPORT ---
EXAM DESCRIPTION: Chest Single View CLINICAL HISTORY: CHEST PAIN COMPARISON: None TECHNIQUE: Single AP view of the chest. FINDINGS: Left-sided cardiac conduction device. Lung volumes adequate. Cardiac silhouette is enlarged. No pneumothorax. Mild bilateral interstitial thickening. No large pleural effusion. No focal consolidation. No acute bony finding. IMPRESSION: 1. Mild bilateral interstitial thickening, could represent mild pulmonary edema. No focal consolida tion. 2. Enlarged cardiac silhouette. Electronically signed by: Jonah Sorto MD 01/31/2025 05:41 AM CDT TYG Due to temporary technical issues with the PACS/[employer] reporting system, reports are being bushra d by the in-house radiologist without review as a courtesy to ensure prompt reporting the interpreting radiologist is fully responsible for the content of the report. Transcribed Date/Time: 01/31/2025 6:17 AM
--- NOTE | 2025-01-31 06:46 | RAD REPORT ---
CLINICAL HISTORY: Confusion. COMPARISON: CT Head Cervical spine 01/16/2025. TECHNIQUE: CT HEAD WITHOUT IV CONTRAST on 01/31/2025 4:37 AM CDT This exam was performed according to our departmental dose-optimization program, which includes autom ated exposure control, adjustment of the mA and/or kV according to patient size and/or use of iterative reconstruction technique. FINDINGS: There is no acute hemorrhage, mass effect or midline shift. Sierra-white differentiation is preserved. There is no hydrocephalus. There is no significant volume loss for age. The calvarium is intact. Orbits and globes are unremarkable. The paranasal sinuses are clear. There i s minimal fluid within the inferior left mastoid air cells. IMPRESSION: No acute intracranial findings. Electronically signed by: Michael Baird MD 01/31/2025 06:41 AM CDT Due to temporary technical issues with the PACS/[employer] reporting system, reports are being bushra d by the in-house radiologist without review as a courtesy to ensure prompt reporting the interpreting radiologist is fully responsible for the content of the report. Transcribed Date/Time: 01/31/2025 6:45 AM
--- NOTE | 2025-01-31 06:51 | RAD REPORT ---
CLINICAL HISTORY: AMS. COMPARISON: XR Chest 01/31/2025, CT Chest Abdomen Pelvis 01/16/2025. TECHNIQUE: CT CHEST ABDOMEN PELVIS WITHOUT IV CONTRAST on 01/31/2025 4:37 AM CDT This exam was performed according to our departmental dose-optimization program, which includes autom ated exposure control, adjustment of the mA and/or kV according to patient size and/or use of iterative reconstruction technique. FINDINGS: Chest: The heart is enlarged. Left single-chamber pacemaker is present. There is no pericardial effus ion. Intrathoracic lymph nodes are not enlarged. There is a trace left pleural effusion. There is a small right pleural effusion. Central airways are patent. There is bibasilar atelectasis without definite consolidation. Abdomen: Liver is nodular in contour. There is mild bilateral upper quadrant ascites. There is a smal l supraumbilical fat-containing ventral hernia. There is no biliary dilatation. The pancreas and spleen are normal in appearance. The adrenal glands and kidneys are unremarkable. Abdominal aorta is normal in course and caliber without aneurysm. There is no free air. There is no r etroperitoneal adenopathy. Pelvis: There is no bowel obstruction. Urinary bladder is decompressed with a Toussaint catheter. There i s no free fluid. Uterus is normal in size. Appendix is normal. There is minimal diffuse body wall anasarca. Skeleton: There are no acute osseous findings. No suspicious bony lesions. IMPRESSION: Pleural effusions with bibasilar atelectasis. Hepatic cirrhosis with mild ascites. Electronically signed by: Michael Baird MD 01/31/2025 06:46 AM CDT Due to temporary technical issues with the PACS/[employer] reporting system, reports are being bushra d by the in-house radiologist without review as a courtesy to ensure prompt reporting the interpreting radiologist is fully responsible for the content of the report. Transcribed Date/Time: 01/31/2025 6:51 AM
--- NOTE | 2025-01-31 06:59 | ER ---
Nurse's Notes [facility] Name: Arabella Chou Age: 79 yrs Sex: Female : 1945 Arrival Date: 01/31/2025 Time: 04:04 Bed 17 Private MD: Diagnosis: Metabolic encephalopathy;Acute renal failure, acute pancreatitis, acute hypoactive delirium, hypothermia, sepsis,;Severe sepsis with septic shock;Bilateral pleural effusions, liver cirrhosis with ascites. Presentation: 01/31 04:18 Chief complaint: Patient states: PT SENT TO ER DUE TO AB PAIN WITH BRIGHT RED BLOODY br2 STOOLS, INCREASED CONFUSION, DECREASED APPETITE, ONE EPISODE OF VOMITING. PT WAS DISCHARGED LAST WEDNESDAY FROM HERE DX DEHYDRATION. Coronavirus screen: Client denies travel out of the [place] in the last 14 days. Ebola Screen: Patient denies exposure to infectious person. Initial Sepsis Screen: Does the patient meet any 2 criteria? No. Patient's initial sepsis screen is negative. Does the patient have a suspected source of infection? No. Patient's initial sepsis screen is negative. Risk Assessment: Do you want to hurt yourself or someone else? Patient reports no desire to harm self or others. Onset of symptoms is unknown. 04:18 Method Of Arrival: EMS: [facility] br2 04:18 Acuity: PADMAJA 3 br2 Triage Assessment: 04:25 General: Appears in no apparent distress. comfortable, Behavior is flat. Pain: Unable br2 to use pain scale. Patient is disoriented. GI: Parent/caregiver reports the patient having vomiting. Historical: - Allergies: 07:55 No Known Allergies; kc6 - PMHx: 04:25 Congestive heart failure; Deep vein thrombosis; Hypertensive disorder; br2 - PSHx: 04:25 pacemaker; br2 - Immunization history:: Adult Immunizations. - Infectious Disease History:: Denies. - Social history:: Smoking status: Patient/guardian denies using tobacco, Patient/guardian denies using alcohol, street drugs. Screenin:10 [facility] ED Fall Risk Assessment (Adult) History of falling in the last 3 months, rg5 including since admission No falls in past 3 months (0 pts) Confusion or Disorientation Intoxicated or Sedated No (0 pts) Impaired Gait Yes (1 pt) Mobility Assist Device Used Yes (1 pt) Altered Elimination Yes (1 pt) Score/Fall Risk Level 3 or more points = High Risk Oriented to surroundings, Maintained a safe environment, Educated pt \T\ family on fall prevention, incl call for assistance when getting out of bed, Hourly rounding (assess needs \T\ fall precautionary measures) done, Used ambulatory aids as needed (educated on \T\ assisted with). Abuse screen: Denies threats or abuse. Nutritional screening: No deficits noted. Tuberculosis screening: No symptoms or risk factors identified. Assessment: 04:10 General: Appears distressed, uncomfortable, Behavior is restless. rg5 04:10 Pain: Complains of pain in abdomen. Neuro: Level of Consciousness is awake, Oriented to rg5 person. Cardiovascular: Denies chest pain. Respiratory: Airway is patent Trachea midline Respiratory effort is even, unlabored, Respiratory pattern is regular, symmetrical. GI: Abdomen is round non-distended, Bowel sounds present in left lower quadrant Abd is soft and non tender Parent/caregiver reports the patient having pain. : Parent/caregiver report the patient having inability to void. EENT: No signs and/or symptoms were reported regarding the EENT system. Derm: Skin is fragile, Skin is dry, Skin is pale, Skin temperature is cool. Musculoskeletal: Circulation, motion, and sensation intact. Range of motion: intact in all extremities, Swelling present in right leg and left leg. 05:00 Reassessment: No changes from previously documented assessment. Patient and/or family rg5 updated on plan of care and expected duration. Pain level reassessed. 06:00 Reassessment: No changes from previously documented assessment. Patient and/or family rg5 updated on plan of care and expected duration. Pain level reassessed. 07:15 General: Appears in no apparent distress. uncomfortable, well developed, Behavior is kc6 restless. Pain: Unable to use pain scale. Patient is disoriented. Neuro: Level of Consciousness is awake, alert, obeys commands, confused, Oriented to none. Cardiovascular: Capillary refill < 3 seconds Rhythm is atrial fibrillation. Respiratory: Airway is patent Trachea midline Respiratory effort is even, unlabored, Respiratory pattern is regular, symmetrical. GI: Abdomen is round non-distended, Parent/caregiver reports the patient having pain. : Menendez in place to gravity drainage clamped Urine is clear. EENT: No signs and/or symptoms were reported regarding the EENT system. Derm: No signs and/or symptoms reported regarding the dermatologic system. Skin is fragile, is thin, with poor turgor Skin is dry, Skin is pale, Skin temperature is cool. Musculoskeletal: No signs and/or symptoms reported regarding the musculoskeletal system. Circulation, motion, and sensation intact. Range of motion: intact in all extremities. 07:58 Reassessment: daughters at bedside, updated regarding POC. kc 08:51 Reassessment: Patient appears in no apparent distress at this time. No changes from kc6 previously documented assessment. Patient and/or family updated on plan of care and expected duration. Pain level reassessed. 09:55 Reassessment: attempted to call report to ICU. per ALEXANDRIA Jeffries she is discharging a kc6 patient and she will call back. Vital Signs: 04:18 BP 126 / 47; Pulse 60; Resp 18; Temp 90(R); Pulse Ox 97% ; Weight 97.07 kg; Height 5 br2 ft. 7 in. ; 04:30 BP 126 / 47; Pulse 60; Resp 17; Pulse Ox 98% on R/A; rg5 05:00 BP 105 / 40; Pulse 63; Resp 17; Temp 89.5(Ca); Pulse Ox 96% ; rg5 05:15 BP 90 / 55; Pulse 60; Resp 17; Temp 89.6(Ca); Pulse Ox 96% on R/A; Pain 0/10; rg5 06:00 BP 97 / 28; Pulse 59; Resp 18; Temp 90.3; Pulse Ox 96% on R/A; rg5 06:30 BP 103 / 45; Pulse 61; Resp 18; Temp 90.8; Pulse Ox 100% on 3 lpm NC; rg5 07:16 BP 119 / 55; Pulse 83; Resp 20 S; Temp 92.8(Ca); Pulse Ox 95% on R/A; kc6 07:58 BP 118 / 52; Pulse 84; Resp 19 S; Temp 94.3(Ca); Pulse Ox 94% ; kc6 08:51 BP 112 / 54; Pulse 89; Resp 19 S; Pulse Ox 95% on R/A; kc6 04:18 Body Mass Index 33.52 (97.07 kg, 170.18 cm) br2 05:15 Pain Scale: Adult rg5 [place] Coma Score: 07:00 Eye Response: to voice(3). Motor Response: localizes pain(5). Verbal Response: sp4 inappropriate words(3). Total: 11. ED Course: 04:04 Patient arrived in ED. jj6 04:05 Vincent Mata, A[place]RI[place] is Primary Nurse. rg5 04:09 Jose Rai MD is Attending Physician. sp4 04:10 Patient has correct armband on for positive identification. Fall risk band placed. rg5 Placed in gown. Bed in low position. Call light in reach. Side rails up X2. Adult w/ patient. Client placed on continuous cardiac and pulse oximetry monitoring. NIBP monitoring applied. district sales manager on. Pulse ox on. NIBP on. Door closed. Noise minimized. Warm blanket given. 04:10 No provider procedures requiring assistance completed. Maintain EMS IV. Dressing rg5 intact. Good blood return noted. Site clean \T\ dry. Gauge \T\ site: 20g right wrist. Patient maintains SpO2 saturation greater than 95% on room air. 04:25 Triage completed. br2 04:25 Arm band placed on right wrist. br2 05:00 Thermoregulation: warm blanket given to patient. Mary blanket applied. br2 05:10 XRAY Chest (1 view) In Process Unspecified. EDMS 05:15 Menendez cath inserted, using sterile technique, 16 Fr., by me, balloon inflated, to br2 gravity drainage, THERMAL MENENDEZ. 05:[address] via stretcher. rg5 05:42 CT Head Brain wo Cont In Process Unspecified. EDMS 05:42 CT Chest Abdomen Pelvis W/O Contrast In Process Unspecified. EDMS 06:57 Karla Johnson MD is Hospitalizing Provider. sp4 06:58 Chest Single View XRAY In Process Unspecified. EDMS 07:00 Report received from ALEXANDRIA Prasad. kc6 07:00 Patient has correct armband on for positive identification. Fall risk band placed. kc6 Placed in gown. Bed in low position. Call light in reach. Side rails up X2. district sales manager on. Pulse ox on. NIBP on. Door closed. Noise minimized. Lights dimmed. Warm blanket given. Pillow given. Verbal reassurance given. 07:05 Thermoregulation: warm blanket given to patient. Mary blanket applied. kc6 09:15 Patient admitted, IV remains in place. kc6 Administered Medications: 06:00 Drug: Cefepime IVPB 2 grams IVPB at 200 ml/hr once over 30 mins; (mix in NS 100 mL) rg5 Route: IVPB; Rate: 200 ml/hr; Infused Over: 30 mins; Site: right wrist; 06:38 Drug: Albumin IVPB 25 grams 100 ml IVPB once; (Note: Albumin 25% concentration) Volume: rg5 100 ml; Route: IVPB; Site: right wrist; 06:38 Drug: Albumin IVPB 25 grams 100 ml IVPB once; (Note: Albumin 25% concentration) Volume: rg5 100 ml; Route: IVPB; Site: right wrist; 06:45 Drug: vancoMYCIN IVPB 2 grams IVPB at calculated rate once Route: IVPB; Rate: rg5 calculated rate; Site: right wrist; 08:51 Follow up: Response: No adverse reaction; IV Status: Completed infusion; IV Intake: kc6 500ml Medication: 04:10 VIS not applicable for this client. rg5 Intake: 08:51 IV: 500ml; Total: 500ml. kc6 Outcome: 06:59 Decision to Hospitalize by Provider. sp4 09:15 Admitted to ER Hold. Please see [facility] for further documentation. kc6 09:15 Condition: stable 09:15 Instructed on the need for admit, 10:53 Patient left the ED. ld1 Signatures: Dispatcher [employer] EDMS Summer Gustafson RN RN ld1 Leila [id number] Rosana Santamaria RN RN [email or web address] Jose Rai MD MD sp4 Vincent Mata RN RN rg5 Olga Richard RN RN br2 Corrections: (The following items were deleted from the chart) 05:13 04:18 BP 126 / 47; Pulse 60bpm; Resp 18bpm; Pulse Ox 97%; 97.07 kg; Height 5 ft. 7 in.; br2 BMI: 33.5; br2
--- NOTE | 2025-01-31 06:59 | EDPHYS ---
Physician Documentation [facility] Name: Arabella Chou Age: 79 yrs Sex: Female : 1945 Arrival Date: 01/31/2025 Time: 04:04 Bed 17 Private MD: ED Physician Jose Rai HPI: 01/31 04:10 This 79 yrs old Female presents to ER via Unassigned with complaints of sp4 Abdominal Pain. 06:49 Patient with history of atrial fibrillation, anemia, congestive heart failure, sp4 pacemaker, and poor mobility presents with acute onset of generalized weakness and acute delirium with nonverbal status. Patient's family states for the past 3 days patient has been feeling exceedingly weak and unwell, today patient became nonverbal prompting EMS transport to the hospital. Patient admitted to last 01/16/2025 through 01/24/2025. Patient was admitted for sacral wounds, hypothermia, cognitive decline, dementia, anemia. Patient's medications include fenofibrate, levothyroxine, metoprolol, sildenafil, spironolactone, furosemide, collagenase, hydrocodone as needed, nystatin topical, pantoprazole, zinc oxide, Praful, linezolid. At the discharge on 01/24/2025 patient was prescribed linezolid 600 mg p.o. twice daily for 10 days.. Historical: - Allergies: 07:55 No Known Allergies; kc6 - PMHx: 04:25 Congestive heart failure; Deep vein thrombosis; Hypertensive disorder; br2 - PSHx: 04:25 pacemaker; br2 - Immunization history:: Adult Immunizations. - Infectious Disease History:: Denies. - Social history:: Smoking status: Patient/guardian denies using tobacco, Patient/guardian denies using alcohol, street drugs. ROS: 07:00 Constitutional: Positive generalized weakness, positive acute nonverbal, positive sp4 altered mental status 07:00 All other systems are negative, Exam: 07:00 Constitutional: Patient is frail elderly female, able to state her name. Otherwise sp4 not oriented. Ill-appearing and toxic appearing patient. Signs of encephalopathy. Bilateral lower extremity venous stasis rash associated with petechia Head/Face: Normocephalic, atraumatic. Eyes: Pupils equal round and reactive to light, extra-ocular motions intact. Lids and lashes normal. Conjunctiva and sclera are not injected. Cornea within normal limits. Periorbital areas with no swelling, redness, or edema. ENT: Nares patent. No nasal discharge, no septal abnormalities noted. Tympanic membranes are normal and external auditory canals are clear. Oropharynx with no redness, dry mucous membranes Neck: Trachea midline, no thyromegaly or masses palpated, and no cervical lymphadenopathy. Supple, full range of motion without nuchal rigidity, or vertebral point tenderness. Chest/axilla: Normal chest wall appearance and motion. Nontender with no deformity. No lesions are appreciated. Cardiovascular: Regular rate and rhythm with a normal S1 and S2. No gallops, murmurs, or rubs. Normal PMI, positive jugular venous distention, no pulse deficits. Respiratory: Lungs have equal breath sounds bilaterally, clear to auscultation and percussion. No rales, rhonchi or wheezes noted. No increased work of breathing, no retractions or nasal flaring. Abdomen/GI: Soft, with normal bowel sounds. No distension or tympany. No guarding or rebound. No evidence of tenderness throughout. Back: No spinal tenderness. No costovertebral tenderness. Female : Normal external genitalia. Skin: Warm, dry with normal turgor. Normal color with no rashes, no lesions, and no evidence of cellulitis. MS/ Extremity: Pulses equal, no cyanosis. Neurovascular intact. Patient is moving all extremities, Neuro: Patient is arousable, able to state her name, oriented x 1. Signs of significant physical debility, patient does move all EXTR grossly no signs of lateralizing deficit 07:16 ECG was reviewed by the Attending Physician. Paced rhythm rate 60. sp4 Vital Signs: 04:18 BP 126 / 47; Pulse 60; Resp 18; Temp 90(R); Pulse Ox 97% ; Weight 97.07 kg; Height 5 br2 ft. 7 in. ; 04:30 BP 126 / 47; Pulse 60; Resp 17; Pulse Ox 98% on R/A; rg5 05:00 BP 105 / 40; Pulse 63; Resp 17; Temp 89.5(Ca); Pulse Ox 96% ; rg5 05:15 BP 90 / 55; Pulse 60; Resp 17; Temp 89.6(Ca); Pulse Ox 96% on R/A; Pain 0/10; rg5 06:00 BP 97 / 28; Pulse 59; Resp 18; Temp 90.3; Pulse Ox 96% on R/A; rg5 06:30 BP 103 / 45; Pulse 61; Resp 18; Temp 90.8; Pulse Ox 100% on 3 lpm NC; rg5 07:16 BP 119 / 55; Pulse 83; Resp 20 S; Temp 92.8(Ca); Pulse Ox 95% on R/A; kc6 07:58 BP 118 / 52; Pulse 84; Resp 19 S; Temp 94.3(Ca); Pulse Ox 94% ; kc6 08:51 BP 112 / 54; Pulse 89; Resp 19 S; Pulse Ox 95% on R/A; kc6 04:18 Body Mass Index 33.52 (97.07 kg, 170.18 cm) br2 05:15 Pain Scale: Adult rg5 Chilo Coma Score: 07:00 Eye Response: to voice(3). Motor Response: localizes pain(5). Verbal Response: sp4 inappropriate words(3). Total: 11. Procedures: 06:59 Central Line: the site was prepped with Betadine, in sterile fashion, a triple lumen sp4 catheter was inserted, in the right internal jugular vein, in 1 attempts. placement was verified, by CXR, by blood return, Ultrasound-guided central line, the site was dressed with 4X4s, Tegaderm, using sterile technique, the patient tolerated the procedure, well, Ultrasound-guided central line placed secondary to acute hypotension secondary to septic shock. MDM: 04:11 Medical Screening Exam initiated sp4 06:48 ED course: CLINICAL HISTORY: Confusion. COMPARISON: CT Head Cervical spine 01/16/2025. sp4 TECHNIQUE: CT HEAD WITHOUT IV CONTRAST on 01/31/2025 4:37 AM CDT This exam was performed according to our departmental dose-optimization program, which includes automated exposure control, adjustment of the mA and/or kV according to patient size and/or use of iterative reconstruction technique. FINDINGS: There is no acute hemorrhage, mass effect or midline shift. Sierra-white differentiation is preserved. There is no hydrocephalus. There is no significant volume loss for age. The calvarium is intact. Orbits and globes are unremarkable. The paranasal sinuses are clear. There is minimal fluid within the inferior left mastoid air cells. IMPRESSION: No acute intracranial findings. Electronically signed by: Michael Baird MD 01/31/2025 06:41 AM. ED course: EXAM DESCRIPTION: Chest Single View CLINICAL HISTORY: CHEST PAIN COMPARISON: None TECHNIQUE: Single AP view of the chest. FINDINGS: Left-sided cardiac conduction device. Lung volumes adequate. Cardiac silhouette is enlarged. No pneumothorax. Mild bilateral interstitial thickening. No large pleural effusion. No focal consolidation. No acute bony finding. IMPRESSION: 1. Mild bilateral interstitial thickening, could represent mild pulmonary edema. No focal consolidation. 2. Enlarged cardiac silhouette. . 06:54 ED course: CLINICAL HISTORY: AMS. COMPARISON: XR Chest 01/31/2025, CT Chest Abdomen sp4 Pelvis 01/16/2025. TECHNIQUE: CT CHESTABDOMEN PELVIS WITHOUT IV CONTRAST on 01/31/2025 4:37 AM CDT This exam was performed according to our departmental dose-optimization program, which includes automated exposure control, adjustment of the mA and/or kV according to patient size and/or use of iterative reconstruction technique. FINDINGS: Chest: The heart is enlarged. Left single-chamber pacemaker is present. There is no pericardial effusion. Intrathoracic lymph nodes are not enlarged. There is a trace left pleural effusion. There is a small right pleural effusion. Central airways are patent. There is bibasilar atelectasis without definite consolidation. Abdomen: Liver is nodular in contour. There is mild bilateral upper quadrant ascites. There is a small supraumbilical fat-containing ventral hernia. There is no biliary dilatation. The pancreas and spleen are normal in appearance. The adrenal glands and kidneys are unremarkable. Abdominal aorta is normal in course and caliber without aneurysm. There is no free air. There is no retroperitoneal adenopathy. Pelvis: There is no bowel obstruction. Urinary bladder is decompressed with a Toussaint catheter. There is no free fluid. Uterus is normal in size. Appendix is normal. There is minimal diffuse body wall anasarca. Skeleton: There are no acute osseous findings. No suspicious bony lesions. IMPRESSION: Pleural effusions with bibasilar atelectasis. Hepatic cirrhosis with mild ascites. Electronically signed by: Michael Baird MD 01/31/2025. 06:54 Differential diagnosis: bowel obstruction, coronary artery disease, diverticulitis, sp4 gastritis, gastroesophageal reflux disease, GI Bleed, Hepatitis, Irritable bowel syndrome, pancreatitis. Data reviewed: vital signs, nurses notes, EMS record, old medical records, lab test result(s), EKG, radiologic studies, CT scan, plain films. Consideration of Admission/Observation Patient was admitted/placed on observation. Escalation of care including admission/observation considered. Management of patient was discussed with the following: Hospitalist: Admit Team Kathleen . ED course: Central line was placed secondary to hypotension. Family explicitly stated they would like to pursue DNR and DNI. Family requested verbally to pursue medical management but states they do not want chest compressions or intubation patient at this time is feeling better temperature has improved down to the Mary hugger. Patient stable for admission to ICU.. 06:59 ED course: Sepsis reevaluation complete, antibiotics administered. Broad range sp4 antibiotics ordered and administered. 30 mL/kg IV fluid septic bolus cannot be administered secondary to history of congestive heart failure and signs of mild volume overload. Patient given careful IV hydration. Provided IV albumin.. 01/31 04:11 Order name: CBC with Diff; Complete Time: 05:40 [facility] 01/31 04:11 Order name: CMP; Complete Time: 06:38 sp4 01/31 04:11 Order name: Lipase; Complete Time: 06:38 4 01/31 04:36 Order name: Troponin HS; Complete Time: 05:32 4 01/31 04:36 Order name: Blood Culture Adult (2) sp4 01/31 04:36 Order name: Ptt, Activated; Complete Time: 05:32 4 01/31 04:36 Order name: PT-INR; Complete Time: 05:32 4 01/31 04:37 Order name: UA W/ Microscopic; Complete Time: 05:32 sp4 01/31 04:37 Order name: Lactate w/ 2H reflex if indic.; Complete Time: 06:01 4 01/31 05:08 Order name: Manual Differential; Complete Time: 05:40 EDNV 01/31 05:38 Order name: NT PRO-BNP; Complete Time: 06:38 EDNV 01/31 05:38 Order name: C-Reactive Protein; Complete Time: 06:38 EDNV 01/31 05:56 Order name: Ghost Lactate-NO COLLECT Timer; Complete Time: 20:26 EDNV 01/31 08:43 Order name: Basic Metabolic Panel EDNV 01/31 08:43 Order name: Basic Metabolic Panel EDMS 01/31 08:43 Order name: Basic Metabolic Panel EDMS 01/31 08:43 Order name: Basic Metabolic Panel EDMS 01/31 08:43 Order name: Basic Metabolic Panel EDMS 01/31 08:43 Order name: Basic Metabolic Panel EDMS 01/31 08:43 Order name: Basic Metabolic Panel EDMS 01/31 08:43 Order name: Basic Metabolic Panel EDMS 01/31 08:43 Order name: Magnesium EDMS 01/31 08:43 Order name: Magnesium EDMS 01/31 08:43 Order name: Magnesium EDMS 01/31 08:43 Order name: Magnesium EDMS 01/31 08:43 Order name: Magnesium EDMS 01/31 08:43 Order name: Magnesium EDMS 01/31 08:43 Order name: CBC with Automated Diff EDMS 01/31 08:43 Order name: CBC with Automated Diff EDMS 01/31 08:43 Order name: CBC with Automated Diff EDMS 01/31 08:43 Order name: CBC with Automated Diff EDMS 01/31 08:43 Order name: CBC with Automated Diff EDMS 01/31 08:43 Order name: CBC with Automated Diff EDMS 01/31 08:43 Order name: CBC with Automated Diff EDMS 01/31 08:43 Order name: CBC with Automated Diff EDMS 01/31 08:44 Order name: Magnesium EDMS 01/31 08:44 Order name: Magnesium EDMS 01/31 08:44 Order name: Phosphorus EDMS 01/31 08:44 Order name: Phosphorus EDMS 01/31 08:44 Order name: Phosphorus EDMS 01/31 08:44 Order name: Phosphorus EDMS 01/31 08:44 Order name: Phosphorus EDMS 01/31 08:44 Order name: Phosphorus EDMS 01/31 08:44 Order name: Phosphorus EDMS 01/31 08:44 Order name: Phosphorus EDMS 01/31 08:44 Order name: Troponin High Sensitivity EDMS 01/31 08:44 Order name: Troponin High Sensitivity; Complete Time: 20:26 EDMS 21 08:44 Order name: Troponin High Sensitivity EDMS 21 08:51 Order name: Lactate Sepsis 2 HR Follow-up; Complete Time: 20:26 EDMS 21 04:36 Order name: XRAY Chest (1 view); Complete Time: 20:26 sp4 01/31 04:37 Order name: CT Head Brain wo Cont; Complete Time: 20:26 sp4 01/31 04:37 Order name: CT Chest Abdomen Pelvis W/O Contrast; Complete Time: 20:26 sp4 01/31 06:36 Order name: Chest Single View XRAY; Complete Time: 20:26 sp4 01/31 04:36 Order name: EKG; Complete Time: 04:37 sp4 01/31 08:46 Order name: Social Service Consult [facility] 01/31 08:50 Order name: Physical Therapy Consult [facility] 01/31 08:50 Order name: Speech Therapy Consult [facility] 01/31 04:11 Order name: IV Saline Lock; Complete Time: 04:19 sp4 01/31 04:11 Order name: Labs collected and sent; Complete Time: 04:29 sp01/31 04:36 Order name: Cardiac monitoring; Complete Time: 06:39 sp01/31 04:36 Order name: EKG - Nurse/Tech; Complete Time: 06:39 sp01/31 04:36 Order name: O2 Per Protocol; Complete Time: 06:39 sp01/31 04:36 Order name: O2 Sat Monitoring; Complete Time: 06:39 sp01/31 04:37 Order name: Misc. Order: Pure Wic; Complete Time: 05:33 sp01/31 06:02 Order name: Central Line Dressing Kit; Complete Time: 06:55 sp01/31 06:02 Order name: Central Line Kit; Complete Time: 06:55 sp01/31 06:02 Order name: Chlorhexidine prep; Complete Time: 06:55 sp01/31 06:02 Order name: Consent for central line completed; Complete Time: 06:55 sp01/31 06:02 Order name: Line Caps x3; Complete Time: 06:55 sp01/31 06:02 Order name: NS Flushes x3; Complete Time: 06:55 sp01/31 06:02 Order name: Sterile Gloves; Complete Time: 06:55 sp01/31 06:02 Order name: Sterile Probe Cover; Complete Time: 06:55 sp4 EC:07 Rate is 60 beats/min. Rhythm is regular, Paced. No ST changes noted. Clinical sp4 impression: No evidence of ischemia. Interpreted by me. Reviewed by me. Administered Medications: 06:00 Drug: Cefepime IVPB 2 grams IVPB at 200 ml/hr once over 30 mins; (mix in NS 100 mL) rg5 Route: IVPB; Rate: 200 ml/hr; Infused Over: 30 mins; Site: right wrist; 06:38 Drug: Albumin IVPB 25 grams 100 ml IVPB once; (Note: Albumin 25% concentration) Volume: rg5 100 ml; Route: IVPB; Site: right wrist; 06:38 Drug: Albumin IVPB 25 grams 100 ml IVPB once; (Note: Albumin 25% concentration) Volume: rg5 100 ml; Route: IVPB; Site: right wrist; 06:45 Drug: vancoMYCIN IVPB 2 grams IVPB at calculated rate once Route: IVPB; Rate: rg5 calculated rate; Site: right wrist; 08:51 Follow up: Response: No adverse reaction; IV Status: Completed infusion; IV Intake: kc6 500ml Disposition Summary: 01/31/25 06:59 Hospitalization Ordered Notes: Hospitalization Status: Inpatient Admission sp4 Provider: Karla Johnson sp4 Condition: Serious sp4 Problem: new sp4 Symptoms: have improved sp4 Bed/Room Type: Standard sp4 Location: Intensive Care Unit(01/31/25 09:52) Room Assignment: 2-(01/31/25 09:52) Diagnosis - Metabolic encephalopathy sp4 - Acute renal failure, acute pancreatitis, acute hypoactive delirium, hypothermia, sp4 sepsis, - Severe sepsis with septic shock sp4 - Bilateral pleural effusions, liver cirrhosis with ascites. sp4 Forms: - Medication Reconciliation Form sp4 - SBAR form sp4 - Leadership Thank You Letter sp4 Signatures: Dispatcher [employer] EDMS Ary Kwan Shelby, RN RN ss Caden See, MUD TANK OPERATOR-C MUD TANK OPERATOR-Cla1 Rosana Santamaria RN RN [email or web address] Jose Rai MD MD sp4 Vincent Mata RN RN rg5 Olga Richard RN RN br2 Corrections: (The following items were deleted from the chart) 04:12 04:11 CBC+H.LAB.BRZ ordered. EDMS EDMS 04:12 04:11 COMPREHENSIVE METABOLIC PANEL+C.LAB.BRZ ordered. EDMS EDMS 04:12 04:11 LIPASE+C.LAB.BRZ ordered. EDMS EDMS 05:37 05:32 C-REACTIVE PROTEIN+C.LAB.BRZ ordered. EDMS EDMS 05:37 05:32 PROBNP+C.LAB.BRZ ordered. EDMS EDMS 09:48 06:59 Telemetry/MedSurg (Inpatient) sp4 bd 09:48 06:59 sp4 bd 09:52 09:48 [facility] ER HOLD bd ss 09:52 09:48 ERHOLD- bd ss
--- NOTE | 2025-01-31 07:13 | RAD REPORT ---
Procedure: Chest Single View HISTORY: Central venous line placement FINDINGS: A central venous line has been placed into the SVC. No pneumothorax.
[2025-01-31] MEDS ORDERED: ACETAMINOPHEN 325 MG TABLET PO PRN (08:38)
--- NOTE | 2025-01-31 08:49 | P.HP ---
Certification for Inpatient Patient admitted to: Inpatient With expected LOS: >2 Midnights Patient will require the following post-hospital care: None Practitioner: I am a practitioner with admitting privileges, knowledge of patient current condition, hospital course, and medical plan of care. Services: Services provided to patient in accordance with Admission requirements found in Title 42 Section 412.3 of the Code of Federal Regulations <Shana Horton - Last Filed: 01/31/25 10:08> Patient History Date of Service: 01/31/25 Reason for admission: Deconditioned, suspect pancreatitis, uremic History of Present Illness: Arabella Chou is an 79 year old female with pmhx atrial fibrillation, anemia, congestive heart failure, pacemaker, and poor mobility who presents to the ED with abdominal pain, refusing to drink, and vomitting. On evaluation, Arabella is lethargic, unable to convserse, hypothermic, lung sounds clear, on 2 LNC. Laboratory evaluation significant for WBC 11.2, H&H 10/32, platelets 98, potassium 5.5, BUN/creatinine 100/1.97, GFR 25, lactic acid 2.7/2.8, C-reactive protein 60, BNP 839, lipase 3594. CT abd/pelvis reports "Pleural effusions with bibasilar atelectasis. Hepatic cirrhosis with mild ascites" Head and cervical spine reports "No acute intracranial findings." Chest xray reports "Mild bilateral interstitial thickening, could represent mild pulmonary edema. No focal consolidation. Enlarged cardiac silhouette." Family reports she has been in and out of the hospital since November, they have seen her decline more each day. Her last discharge she was able to transfer and take short steps but declined in mobility quickly. Arabella is also refusing to drink and has decreased her PO intake. Family was to meet with [facility] concerning hospice today but Arabella was in pain last night and they needed to bring her to the ED. Arabella will be admitted to hospitalist service for further evaluation and treatment of acute pancreatitis, deconditioning, uremia. - Past Medical/Surgical History Diabetic: No -: Afib on Eliquis -: CHF-chronic diastolic -: Htn -: DVT -: Hypothyroidism -: Pulmonary hypertension Psychosocial/ Personal History: Lives at home with her daughter - Family History Father -: Hypertension - Social History Smoking Status: Never smoker Alcohol use: No CD- Drugs: No Caffeine use: Yes <Shana Horton - Last Filed: 01/31/25 10:08> Date of Service: 01/31/25 <Karla Johnson - Last Filed: 01/31/25 16:45> Allergies No Known Allergies Allergy (Verified 12/06/24 01:26) Home Medications: Fenofibrate,Micronized [Fenofibrate] 134 mg PO DAILY 12/06/24 Levothyroxine Sodium 25 mcg PO DAILY 12/06/24 Sildenafil Citrate 20 mg PO BID 12/06/24 Spironolactone 25 mg PO DAILY 12/06/24 Furosemide [Lasix*] 40 mg PO DAILY #30 tab 12/14/24 Collagenase [Santyl Ointment*] 1 appl TOP DAILY #30 gm 01/10/25 Hydrocodone 5/APAP 325 [Holley 5/325*] 1 tab PO Q6H PRN #15 tab 01/10/25 Nystatin Powder [Mycostatin (Powder)*] 1 appl TOP DAILY PRN #1 bottle 01/10/25 Pantoprazole [Protonix Tab*] 40 mg PO DAILYAC #30 tab 01/10/25 Zinc Oxide [Zinc Oxide 20%*] 1 appl TOP BID #1 tube 01/10/25 Praful [Praful*] 1 pkt PO BID 01/24/25 Linezolid [Zyvox*] 600 mg PO BID 10 Days #20 tab 01/24/25 Metoprolol Succinate [Toprol Xl*] 25 mg PO DAILY 01/31/25 Review of Systems is unable to be obtained <Shana Horton - Last Filed: 01/31/25 10:08> Physical Examination - Physical Exam General: Other (lethargic) HEENT: Atraumatic Neck: 2+ carotid pulse no bruit, JVD not distended Respiratory: Clear to auscultation bilaterally Cardiovascular: Regular rate/rhythm Capillary refill: <2 Seconds Gastrointestinal: Normal bowel sounds Musculoskeletal: No clubbing Integumentary: No rashes Neurological: Other (lethargic) - Studies Laboratory Data (last 24 hrs) 01/31/25 01/31/25 01/31/25 04:25 04:25 04:25 WBC 11.20 H Hgb 10.5 L Hct 32.6 L Plt Count 98 L PT 13.1 H INR 1.16 APTT 56.5 H Sodium 140 Potassium 5.5 H BUN 100 H Creatinine 1.97 H Glucose 76 Total Bilirubin 0.3 AST 33 ALT 37 Alkaline Phosphatase 145 H Lipase 3594 H Microbiology Data (last 24 hrs): 01/31/25 05:00 Blood - Blood Anaerobic Blood Culture - Final 01/31/25 05:15 Blood - Blood Anaerobic Blood Culture - Final <Shana Horton - Last Filed: 01/31/25 10:08> - Studies Laboratory Data (last 24 hrs) 01/31/25 01/31/25 01/31/25 04:25 04:25 04:25 WBC 11.20 H Hgb 10.5 L Hct 32.6 L Plt Count 98 L PT 13.1 H INR 1.16 APTT 56.5 H Sodium 140 Potassium 5.5 H BUN 100 H Creatinine 1.97 H Glucose 76 Total Bilirubin 0.3 AST 33 ALT 37 Alkaline Phosphatase 145 H Lipase 3594 H Microbiology Data (last 24 hrs): 01/31/25 05:00 Blood - Blood Anaerobic Blood Culture - Final 01/31/25 05:15 Blood - Blood Anaerobic Blood Culture - Final <Karla Johnson - Last Filed: 01/31/25 16:45> Assessment and Plan - Plan Assessment and plan Acute pancreatitis associated with vomiting Lactic acidosis Hypothermic Lethargic -Head and cervical spine reports "No acute intracranial findings." -Chest xray reports "Mild bilateral interstitial thickening, could represent mild pulmonary edema. No focal consolidation. Enlarged cardiac silhouette." -CT abd/pelvis reports "Pleural effusions with bibasilar atelectasis. Hepatic cirrhosis with mild ascites" -Abdominal US pending -speech consulted -gill hallman in place -trend lactic acid and lipase -Vanc and cefepime -gentle IVF Deconditioned Decreased PO intake -Speech and dietary consulted -PT consulted -Family reports her ability to transfer and take short steps -Family is considering hospice [facility] with significant uremia -Dr. Reyes consulted -Gentle IVF -BUN/creatinine 100/1.97, GFR 25 Anemia -H/H -Stable -continue to monitor CHF Afib Pacemaker -Continue home medications as appropriate DVT ppx heparin DNR LOS 2-3 days atrial fibrillation, anemia, congestive heart failure, pacemaker, and poor mobility Discharge Plan: Other Plan to discharge in: 72 Hours - Advance Directives Does patient have a Living Will: No Does patient have a Durable POA for Healthcare: No <Shana Horton - Last Filed: 01/31/25 10:08> Physician Review: Patient Assessed, Agree with Above Assessment and Plan (Started on Levophed for hypotension. Possible hospice referral depending on daughter's decisions. Prognosis guarded) <Karla Johnson - Last Filed: 01/31/25 16:45>
[2025-01-31] MEDS: SODIUM ZIRCONIUM CYCLOSILICATE 10 GM/PKT PO ONE (09:00)
[2025-01-31] MEDS: NA CHLORIDE 0.9% 1,000 ML IV SCH (09:00)
[2025-01-31] MEDS ORDERED: MORPHINE 2 MG/ML SYR ONE (09:28)
[2025-01-31] MEDS: MORPHINE 2 MG/ML SYR IV PRN (09:33)
[2025-01-31] MEDS: FUROSEMIDE 20 MG/ 2ML VIAL IV ONE (11:38)
[2025-01-31] MEDS ORDERED: NA CHLORIDE 0.9% 1,000 ML IV SCH (12:00)
--- NOTE | 2025-01-31 12:01 | CON ---
Date of Consultation: 01/31/2025 Additional Consulting Physician: Dr. Johnson. Reason For Consultation: Elevated BUN and creatinine, fluid management. History Of Present Illness: All the information has been obtained from the family by bedside as the patient nonverbal, altered mental status. This is an 79-year-old female with significant past medical history of cirrhosis, chronic kidney disease, baseline creatinine 1.3, GFR of 36 as of January this year, hyperlipidemia, congestive heart failure, diastolic dysfunction, hypertension, DVT, hypothyroidism, pulmonary hypertension, the patient recently admitted to the hospital with dehydration. The patient treated and discharged. The patient had been declining and gradually started having altered mental status, poor intake. For that reason, the patient was brought to the hospital. Upon arrival to the hospital, the patient found to have elevation in BUN and creatinine and potassium, potassium 5.5 with creatinine 1.9. Baseline creatinine on the previous admission after hydration 1.4, GFR of 36. The patient denied taking any nonsteroidal. No recent exposure to contrast. Past Medical History: Includes: 1. Congestive heart failure with diastolic dysfunction, hypertension. 2. DVT. 3. Hypothyroidism. 4. Pulmonary hypertension. 5. Atrial fibrillation, on anticoagulation. Past Surgical History: Noncontributory. Allergies: NO KNOWN DRUGS ALLERGY. Home Medications: Include fenofibrate, levothyroxine, metoprolol, sildenafil, spironolactone, Lasix, hydrocodone, pantoprazole, linezolid. Family History: Positive for hypertension. Social History: Denied smoking. Denied drinking. Denied drugs abuse. Review of Systems: None obtainable. Physical Examination: Vital Signs: When I saw the patient, blood pressure 112/54, pulse of 89, afebrile. Chest: Crackles, bilateral. Heart: S1, S2. Systolic murmur. Abdomen: Soft, nontender. Extremities: Trace edema. Neuro: Nonresponsive. Laboratory Data: Chest x-ray, cardiomegaly with congestion. WBC 11.2, hemoglobin 10.5. Sodium 140, potassium 5.5, bicarb 27, BUN 100, creatinine 1.9, GFR 25, calcium 9. C-reactive protein 60, albumin 2.2. Current Medications: The patient is on include cefepime, vancomycin, morphine. Assessment And Plan: 1. Acute kidney injury secondary to cardiorenal, over volume. I am going to discontinue IV fluid. We will give the patient single dose of Lasix and we will monitor the patient. I had long discussion with the patient's daughters by bedside, 2 daughters. Apparently, the other daughter considering hospice. Final decision was not made yet. We are going to continue conservative management for the time being and we will send for primary workup and we will follow up the patient. Obstructive uropathy has been ruled out. 2. Hypertension. Currently, blood pressure on the lower side. Hold all blood pressure medication except the Lasix to establish better volume control. 3. Congestive heart failure with exacerbation. We will optimize the fluid status. Discontinue IV fluid. 4. Hyperkalemia secondary to renal failure, superimposed with spironolactone. Discontinue spironolactone. We will continue with Lasix. No need for binder for the time being. 5. Acute pancreatitis as by Primary. 6. Questionable of hepatorenal syndrome. We will follow up with Primary. The patient received albumin. I am going to back up on the fluid expansion for the time being given the patient mostly cardiorenal and we will follow up. 7. Altered mental status, metabolic encephalopathy as by Primary. 8. Cirrhosis, encephalopathy as by Primary. Time spent examining the patient [id number] reviewing data lab and the radiology placing orders or discussing the case with the patient discussing the case with the endless steamer tender including hospitalist and nursing staff more than 75- minute DAR Voice ID: [id number] Report ID: [id number] AMY
--- NOTE | 2025-01-31 12:32 | RAD REPORT ---
EXAMINATION: COMPLETE ABDOMINAL ULTRASOUND CLINICAL INDICATION: Abdominal pain. TECHNIQUE: Grayscale ultrasonography of the abdomen was performed. [id number]. COMPARISON: None FINDINGS: The liver has a normal echotexture.. Small gallstone. Gallbladder wall not thickened. Biliary tree normal caliber. Pancreas normal in size and echotexture Right kidney measures 10 cm with a normal echotexture Left kidney measures 10 cm with a normal echotexture No hydronephrosis Spleen measures 9 cm with a normal echotexture No significant abnormality visualized abdominal aorta/IVC Small pleural effusions IMPRESSION: Cholelithiasis without evidence of cholecystitis
[2025-01-31] MEDS: HEPARIN 5000 UNIT/ML 1 ML VIAL SQ SCH (13:01)
[2025-01-31] MEDS: NA CHLORIDE 0.9% IV ONE (13:01)
[2025-01-31] MEDS: FUROSEMIDE IV ONE (13:01)
[2025-01-31] MEDS: NOREPINEPHRINE BITARTRATE/D5W 4 MG/250 ML BAG IV SCH (13:02)
[2025-01-31 15:54] LABS: UR PROTEIN 42.2 mg/dL (<11.9); Urine Protein/Creatinine Ratio 0.43 ratio (<0.15)
[2025-01-31] MEDS: CEFEPIME 1 GM in NA CHLORIDE 0.9% 100 ML IV SCH (20:28)
[2025-01-31 21:32] VITALS: O2SAT 96
[2025-02-01] MEDS: NA CHLORIDE 0.9% 500 ML IV ONE (00:13)
[2025-02-01 05:09] LABS: Absolute Basophils 0.1 K/uL (0-0.5); Absolute Eosinophils 0.1 K/uL (0-0.5); Absolute Lymphocytes (CBC) 1.1 K/uL (0.7-4.9); Absolute Monocytes 1.1 K/uL (0.1-1.3); Absolute Neutrophil 13.5 K/uL (1.8-8.0); Basophils % 0.3 % (0-1.3); Eosinophils % 0.4 % (0-4.4); Hemoglobin 9.3 g/dL (12.0-15.0); MCH 28.3 pg (27.0-35.0); MCV 88.5 fL (80-100); MPV 9.5 fL (7.6-11.3); Monocytes % 6.9 % (3.3-12.3); Nucleated Red Blood Cells % 0.1 % (0-0); Platelets 98 thou/uL (152-406); RBC Red Blood Cell Count 3.28 M/uL (3.86-4.86); Red Cell Distribution Width 20.1 % (12.1-15.2)
[2025-02-01 05:18] VITALS: BMI 31.0
[2025-02-01 05:19] LABS: Neutrophils % 85.4 % (41.7-73.7)
[2025-02-01] MEDS: NOREPINEPHRINE BITARTRATE/D5W 4 MG/250 ML KIT IV ONE (05:54)
[2025-02-01 06:08] LABS: Albumin 2.1 g/dL (3.4-5.0); Anion Gap 13.4 mEq/L (5.0-15.0); Magnesium 1.6 mg/dL (1.6-2.4); Phosphorus 4.4 mg/dL (2.5-4.9); Potassium 5.4 mEq/L (3.5-5.1); Uric Acid 11.1 mg/dL (2.6-6.0)
[2025-02-01] MEDS: D10W 250 ML IV ONE (06:18)
[2025-02-01] MEDS: D10W 250 ML BAG IV PRN (06:20)
--- NOTE | 2025-02-01 12:01 | P.PN ---
Subjective Date of Service: 02/01/25 Chief Complaint: Deconditioned, suspect pancreatitis, uremic Subjective: Not able to obtain history from the patient. Looks comfortable in the bed. Objective: General appearance: comfortable and lethargic CVS: Normal S1 and S2 Lungs: Clear to auscultation bilaterally Abdomen: Soft, bowel sounds present, no tenderness Physical Examination - Vital Signs Temperature: 98.8 F Blood Pressure: 143/54 Pulse: 117 Respirations: 19 Pulse Ox (%): 97 - Studies Microbiology Data (last 24 hrs): 01/31/25 05:00 Blood - Blood Anaerobic Blood Culture - Final 01/31/25 05:15 Blood - Blood Anaerobic Blood Culture - Final Assessment And Plan - Plan Acute pancreatitis associated with vomiting Lactic acidosis Hypothermic Sepsis Lethargic -CT Head "No acute intracranial findings." -CT abd/pelvis reports "Pleural effusions with bibasilar atelectasis. Hepatic cirrhosis with mild ascites" -Abdominal US showed cholelithiasis -Vanc and cefepime -gentle IVF - Continue pressor support, will request pulmonary critical care consult Deconditioned Decreased PO intake -Speech and dietary consulted -PT consulted -Family reports her ability to transfer and take short steps -Family is considering hospice, finalization pending [facility] with significant uremia -Dr. Reyes consulted -BUN/creatinine 100/1.97, GFR 25 Anemia - monitor H/H CHF Afib Pacemaker -Continue home medications as appropriate # Hyperkalemia: Discussed with nephrology, plan to give Lasix # Elevated troponin: Probably secondary to sepsis and renal failure DVT ppx heparin DNR LOS 2-3 days atrial fibrillation, anemia, congestive heart failure, pacemaker, and poor mobility Plan discussed with nursing staff, no family available at bedside, discussed with nephrology. Physician Review: Patient Assessed, Agree with Above Assessment and Plan (Started on Levophed for hypotension. Possible hospice referral depending on daughter's decisions. Prognosis guarded)
[2025-02-01] MEDS ORDERED: FUROSEMIDE 20 MG/ 2ML VIAL IV ONE (12:30)
--- NOTE | 2025-02-01 13:03 | PN ---
Date of Progress Note: 02/01/2025 Subjective: The patient was admitted with acute pancreatitis, septic shock/cardiogenic shock with over volume with target organ damage with acute kidney injury secondary to cardiorenal toxic ATN. The patient was receiving diuresis yesterday. The patient is on Levophed. Physical Examination: Vital Signs: When I saw the patient, blood pressure of 111/60, pulse of 88. Chest: Crackles bilateral. Heart: S1, S2. Systolic murmur. Abdomen: Tenderness. No guarding or rebound. Extremities: Trace edema. Neuro: The patient is just moving. Laboratory Data: WBC 15.8, hemoglobin 9.3. Sodium 144, potassium 5.4, bicarb 24, BUN 107, creatinine 2.7, GFR of 17, uric acid 11.1, calcium 8.2, phosphorus 4.4, magnesium 1.7. Current Medications: The patient is on include Levophed, cefepime, vancomycin, heparin. Assessment And Plan: 1. Acute kidney injury secondary to toxic ATN, poor perfusion ATN secondary to sepsis and septic shock/cardiogenic shock, nonoliguric, complicated with hyperkalemia. I had long discussion with the family. Family decided to proceed with inpatient hospice. We will give the patient single dose of Lasix. We will sign off from the case. Please call us if needed. 2. Hypertension. Currently, hypotension with shock as above. Continue pressor. 3. Hyperkalemia. We will give Lasix. 4. Congestive heart failure with exacerbation as above. 5. Septic shock/cardiogenic shock complicated with target organ failure, acute kidney injury. Follow up with Primary. Time spent examining the patient [id number] reviewing data lab and the radiology placing orders or discussing the case with the patient discussing the case with the sales floor team leader including hospitalist and nursing staff more than 55- minute MONE/FIDE Voice ID: [id number] Report ID: [id number] AMY
[2025-02-01] MEDS: FUROSEMIDE IV ONE (14:09)
[2025-02-01] MEDS: NA CHLORIDE 0.9% IV ONE (14:09)
--- NOTE | 2025-02-01 15:25 | P.DS ---
Admission Date: 01/31/25 Discharge Date: 02/01/25 Disposition: HOSPICE-MEDICAL FACILITY Reason for Admission: Deconditioned, suspect pancreatitis, uremic Hospital Course: Acute pancreatitis associated with vomiting Lactic acidosis Hypothermic Sepsis Lethargic -CT Head "No acute intracranial findings." -CT abd/pelvis reports "Pleural effusions with bibasilar atelectasis. Hepatic cirrhosis with mild ascites" -Abdominal US showed cholelithiasis -on Vanc and cefepime -gentle IVF - on pressor support, pulmonary critical care consult requested Deconditioned Decreased PO intake -hospice [facility] with significant uremia -Dr. Reyes consulted Anemia - monitor H/H CHF Afib Pacemaker -Continue home medications as appropriate # Hyperkalemia: Discussed with nephrology, plan to give Lasix # Elevated troponin: Probably secondary to sepsis and renal failure 79-year-old patient admitted with sepsis, acute pancreatitis and acute renal failure, nephrology was consulted, she was started on broad-spectrum antibiotics, admitted to ICU, pulmonary critical care was consulted, family decided to enroll into hospice so she will be transition to inpatient hospice. Vital Signs/Physical Exam: Temp Pulse Resp BP Pulse Ox 98.8 F 109 H 20 112/43 L 95 02/01/25 12:01 02/01/25 14:45 02/01/25 14:45 02/01/25 14:45 02/01/25 14:45 Laboratory Data at Discharge: WBC 15.80 thou/uL (4.3-10.9) H 02/01/25 04:55 Hgb 9.3 g/dL (12.0-15.0) L D 02/01/25 04:55 Hct 29.0 % (36.0-45.0) L 02/01/25 04:55 Plt Count 98 thou/uL (152-406) L 02/01/25 04:55 PT 13.1 SECONDS (10-13.0) H 01/31/25 04:25 INR 1.16 01/31/25 04:25 APTT 56.5 SECONDS (27.2-37.4) H 01/31/25 04:25 Sodium 144 mEq/L (136-145) 02/01/25 04:55 Potassium 5.4 mEq/L (3.5-5.1) H 02/01/25 04:55 BUN 107 mg/dL (7-18) H 02/01/25 04:55 Creatinine 2.74 mg/dL (0.55-1.02) H 02/01/25 04:55 Glucose 52 mg/dL (74-106) L* 02/01/25 04:55 Uric Acid 11.1 mg/dL (2.6-6.0) H 02/01/25 04:55 Phosphorus 4.4 mg/dL (2.5-4.9) 02/01/25 04:55 Magnesium 1.6 mg/dL (1.6-2.4) 02/01/25 04:55 Total Bilirubin 0.3 mg/dL (0.2-1.0) 01/31/25 04:25 AST 33 U/L (15-37) 01/31/25 04:25 ALT 37 U/L (13-56) 01/31/25 04:25 Alkaline Phosphatase 145 U/L (45-117) H 01/31/25 04:25 Lipase 1420 U/L (13-75) H 02/01/25 04:55 Home Medications: Fenofibrate,Micronized [Fenofibrate] 134 mg PO DAILY 12/06/24 Levothyroxine Sodium 25 mcg PO DAILY 12/06/24 Sildenafil Citrate 20 mg PO BID 12/06/24 Spironolactone 25 mg PO DAILY 12/06/24 Furosemide [Lasix*] 40 mg PO DAILY #30 tab 12/14/24 Collagenase [Santyl Ointment*] 1 appl TOP DAILY #30 gm 01/10/25 Hydrocodone 5/APAP 325 [[place] 5/325*] 1 tab PO Q6H PRN #15 tab 01/10/25 Nystatin Powder [Mycostatin (Powder)*] 1 appl TOP DAILY PRN #1 bottle 01/10/25 Pantoprazole [Protonix Tab*] 40 mg PO DAILYAC #30 tab 01/10/25 Zinc Oxide [Zinc Oxide 20%*] 1 appl TOP BID #1 tube 01/10/25 Praful [Praful*] 1 pkt PO BID 01/24/25 Linezolid [Zyvox*] 600 mg PO BID 10 Days #20 tab 01/24/25 Metoprolol Succinate [Toprol Xl*] 25 mg PO DAILY 01/31/25 Followup: Bozena Manning, [employer]PLIC[employer] [Primary Care Provider] -
[2025-02-01 16:51] VITALS: TEMP 97.9
[2025-02-01 18:23] VITALS: BP 129/48
[2025-02-02] MEDS ORDERED: VANCOMYCIN 2 GM in NA CHLORIDE 0.9% 500 ML IVPB SCH (09:00)
--- NOTE | 2025-02-06 12:45 | EKG ---
Test Date: 2025-01-31 Test Time: 06:07:01 First Assist: JONNATHAN MEASUREMENT RESULTS: Intervals: Rate: 60 MS: QRSD: 166 QT: 538 QTc: 538 Carter: P: MS: QRS: 140 T: -34 INTERPRETIVE STATEMENTS: Ventricular-paced rhythm with occasional supraventricular complexes Abnormal ECG Compared to ECG 01/16/2025 13:59:19 Atrial premature complex(es) no longer present Junctional rhythm no longer present ST (T wave) deviation no longer present Possible ischemia no longer present Electronically Signed On 02-06-25 12:31:24 CDT by Naeem Pelayo
== END 2025-02-01 18:27 | disposition hospice, inpatient (51) | DRG 871 ==
LOC: ER 04:04 → ERHOLD 08:38 → 3RD-ICU 10:12
PROVIDERS: ADMIT Family Medicine; ATTEND Hospitalist
PROC: 3E033XZ Introduction of Vasopressor into Peripheral Vein, Percutaneous Approach (ICD-10-PCS; principal; 2025-01-31)
PROC: 02HV33Z Insertion of Infusion Device into Superior Vena Cava, Percutaneous Approach (ICD-10-PCS; 2025-01-31)
DX: A41.9 Sepsis, unspecified organism (principal); G93.41 Metabolic encephalopathy; K85.90 Acute pancreatitis without necrosis or infection, unspecified; R65.21 Severe sepsis with septic shock; I50.33 Acute on chronic diastolic (congestive) heart failure; R57.0 Cardiogenic shock; N17.0 Acute kidney failure with tubular necrosis; F05 Delirium due to known physiological condition; R18.8 Other ascites; E87.20 Acidosis, unspecified; I13.0 Hypertensive heart and chronic kidney disease with heart failure and stage 1 through stage 4 chronic kidney disease, or unspecified chronic kidney disease; N18.9 Chronic kidney disease, unspecified; D63.1 Anemia in chronic kidney disease; E86.0 Dehydration; E03.9 Hypothyroidism, unspecified; E87.5 Hyperkalemia; I48.91 Unspecified atrial fibrillation; K74.60 Unspecified cirrhosis of liver; R79.89 Other specified abnormal findings of blood chemistry; R68.0 Hypothermia, not associated with low environmental temperature; Z66 Do not resuscitate; Z95.0 Presence of cardiac pacemaker; Z51.5 Encounter for palliative care; Z79.890 Hormone replacement therapy; Z79.899 Other long term (current) drug therapy; Z86.718 Personal history of other venous thrombosis and embolism
CPT/HCPCS: 36415; 36556; 51702; 70450; 71045; 71250; 74176; 76700; 80053; 80069; 81001; 82140; 82533; 82550; 82570; 82947; 83605; 83690; 83735; 83880; 83970; 84156; 84484; 84550; 85025; 85610; 85730; 86140; 87040; 93005; 96365; 96366; 96375; 99285; J0692; J1644; J1938; J2270; J3370; J7040; P9047

== ENCOUNTER 2025-02-01 18:13 | Inpatient (IN) | payer OTHER ==
[2025-02-01 19:45] VITALS: BMI 29.7
[2025-02-01] MEDS ORDERED: BISACODYL 10 MG RECTAL SUPP PR PRN (19:51)
[2025-02-01] MEDS ORDERED: ACETAMINOPHEN 650MG/RECT SUPP PR PRN (19:53)
[2025-02-01] MEDS ORDERED: LORazepam 2 MG/ML VIAL IV PRN (19:54)
[2025-02-01] MEDS: SCOPOLAMINE HYDROBROMIDE PATCH TD ONE (20:10)
[2025-02-01] MEDS: HYDROMORPHONE HCL 2 MG/ML inj IV PRN (20:14)
[2025-02-01 21:10] VITALS: O2SAT 98
[2025-02-01] MEDS ORDERED: ONDANSETRON 4 MG (ODT) TAB PO PRN (21:20)
--- NOTE | 2025-02-01 21:23 | P.HP ---
Patient History Date of Service: 02/01/25 Reason for admission: HOSPICE ADMISSION History of Present Illness: GABY IS A PATIENT WITH A FIB, STEATOHEPATITIS INDUCED CIRRHOSIS, WHO HAS BEEN IN THE HOSPITAL 3 TIMES IN LAST TWO MONTHS FOR VARIOUS ISSUES. THIS TIME SHE COMES WITH EPIG PAIN, N, V AND SHOWED ACUTE PANCREATITIS WITH LIPASE OF MORE THAN 1400. SHE HAS ACUTE RENAL FAILURE,SHE IS SEMICOMATOSE WITH SOME RESPONSE TO PAIN. FAMILY WANTED HOSPICE CARE SO IP WAS CONSULTED. Allergies No Known Allergies Allergy (Verified 12/06/24 01:26) Home Medications: Fenofibrate,Micronized [Fenofibrate] 134 mg PO DAILY 12/06/24 Levothyroxine Sodium 25 mcg PO DAILY 12/06/24 Sildenafil Citrate 20 mg PO BID 12/06/24 Spironolactone 25 mg PO DAILY 12/06/24 Furosemide [Lasix*] 40 mg PO DAILY #30 tab 12/14/24 Collagenase [Santyl Ointment*] 1 appl TOP DAILY #30 gm 01/10/25 Hydrocodone 5/APAP 325 [[place] 5/325*] 1 tab PO Q6H PRN #15 tab 01/10/25 Nystatin Powder [Mycostatin (Powder)*] 1 appl TOP DAILY PRN #1 bottle 01/10/25 Pantoprazole [Protonix Tab*] 40 mg PO DAILYAC #30 tab 01/10/25 Zinc Oxide [Zinc Oxide 20%*] 1 appl TOP BID #1 tube 01/10/25 Praful [Praful*] 1 pkt PO BID 01/24/25 Linezolid [Zyvox*] 600 mg PO BID 10 Days #20 tab 01/24/25 Metoprolol Succinate [Toprol Xl*] 25 mg PO DAILY 01/31/25 - Past Medical/Surgical History Diabetic: No -: Afib on Eliquis -: CHF-chronic diastolic -: Htn -: DVT -: Hypothyroidism -: Pulmonary hypertension Psychosocial/ Personal History: Lives at home with her daughter - Family History Father -: Hypertension - Social History Smoking Status: Former smoker Alcohol use: No CD- Drugs: No Caffeine use: Yes Place of Residence: Home Review of Systems is unable to be obtained Physical Examination - Vital Signs Temperature: 97 F Blood Pressure: 108/35 Pulse: 88 Respirations: 17 Pulse Ox (%): 98 - Physical Exam General: Unresponsive, Comatose HEENT: Atraumatic, PERRLA, Mucous membr. moist/pink, EOMI, Sclerae nonicteric Neck: Supple, 2+ carotid pulse no bruit, No LAD, Without JVD or thyroid abnormality Respiratory: Diminished Cardiovascular: Regular rate/rhythm Gastrointestinal: Normal bowel sounds, No tenderness Musculoskeletal: No tenderness Integumentary: No rashes Neurological: Normal gait, Normal speech, Normal strength at 5/5 x4 extr, Normal tone, Normal affect Lymphatics: No axilla or inguinal lymphadenopathy Assessment and Plan - Problems (Diagnosis) (1) Acute pancreatitis Current Visit: Yes Status: Acute Plan: SHE IS TERMINAL FROM COMPLICATIONS OF ACUTE PANCREATITIS. SHE HAS LACTIC ACIDOSIS AND ACUTE RENAL FAILURE. SHE WILL BE TAKEN OFF MEDS FOR AGGRESSIVE MEASURES. SHE WILL BE KEPT COMFORTABLE WITH NARCOTICS AND SEDATIVES. DNR STATUS. (2) Hypodynamic septic shock Current Visit: Yes Status: Acute - Advance Directives Does patient have a Living Will: No Does patient have a Durable POA for Healthcare: No
--- NOTE | 2025-02-02 14:45 | P.PN ---
Subjective Date of Service: 02/02/25 Chief Complaint: HOSPICE ADMISSION Subjective: Worsening GABY IS COMATOSE WITH NO RESPONSE TO ANY STIMULUS. Review of Systems 10-point ROS is otherwise unremarkable General: Weakness Physical Examination - Vital Signs Temperature: 97 F Blood Pressure: 104/32 Pulse: 92 Respirations: 12 Pulse Ox (%): 83 - Physical Exam General: Comatose HEENT: Atraumatic, PERRLA, EOMI Neck: JVD not distended Respiratory: Diminished (RAPID) Cardiovascular: Irregular heart rate/rhythm Gastrointestinal: Normal bowel sounds, No tenderness Musculoskeletal: No tenderness Integumentary: No rashes Lymphatics: No axilla or inguinal lymphadenopathy - Studies Medications List Reviewed: Yes Assessment And Plan - Current Problems (Diagnosis) (1) Acute pancreatitis Current Visit: Yes Status: Acute Plan: SHE IS TERMINAL FROM COMPLICATIONS OF ACUTE PANCREATITIS. SHE HAS LACTIC ACIDOSIS AND ACUTE RENAL FAILURE. SHE WILL BE TAKEN OFF MEDS FOR AGGRESSIVE MEASURES. SHE WILL BE KEPT COMFORTABLE WITH NARCOTICS AND SEDATIVES. DNR STATUS. (2) Hypodynamic septic shock Current Visit: Yes Status: Acute (3) Coma Current Visit: Yes Status: Acute Plan: COMATOSE FROM MULTI SYSTEM FAILURE. CONTINUE COMFORT CARE BP DROPS DOWN TO 90 PULSE OX DOWN TO 83% WITHIN A DAY OR SO SHE SHOULD .
[2025-02-02 20:13] VITALS: BP 78/57; TEMP 98.5
--- NOTE | 2025-02-09 08:03 | P.DS ---
Admission Date: 02/01/25 Discharge Date: 02/09/25 Disposition: Discharge Condition: Reason for Admission: HOSPICE ADMISSION - Problems (1) Acute pancreatitis Status: Acute (2) Hypodynamic septic shock Status: Acute (3) Coma Status: Acute Brief History of Present Illness: GABY IS A PATIENT WITH A FIB, STEATOHEPATITIS INDUCED CIRRHOSIS, WHO HAS BEEN IN THE HOSPITAL 3 TIMES IN LAST TWO MONTHS FOR VARIOUS ISSUES. THIS TIME SHE COMES WITH EPIG PAIN, N, V AND SHOWED ACUTE PANCREATITIS WITH LIPASE OF MORE THAN 1400. SHE HAS ACUTE RENAL FAILURE,SHE IS SEMICOMATOSE WITH SOME RESPONSE TO PAIN. FAMILY WANTED HOSPICE CARE SO IP WAS CONSULTED. Hospital Course: GABY COMES WITH ACUTE PANCREATITIS. THIS TIME SHE IS COMATOSE FROM MULTISYSTEM FAILURE. SHE WAS ON HOSPICE AND KEPT COMFORTABLE. SHE EXPECTED IN COUPLE OF DAYS. Vital Signs/Physical Exam: Temp Pulse Resp BP Pulse Ox 98.5 F 116 H 9 L 78/57 L 83 L 02/02/25 20:00 02/02/25 20:00 02/02/25 20:00 02/02/25 20:00 02/02/25 14:45 Home Medications: NK [No Home Meds] 02/01/25
== END 2025-02-03 10:20 | disposition expired | DRG 951 ==
LOC: 3RD-ICU 18:13
PROVIDERS: ADMIT Internal Medicine; ATTEND Internal Medicine
DX: Z51.5 Encounter for palliative care (principal)
CPT/HCPCS: J1171